=== PATIENT | female | born 1940 | race Caucasian/White ===

== ENCOUNTER 2019-08-20 05:03 | Emergency (ER) | payer MEDICARE, OTHER ==
[~2019-08-20] VITALS: Ht 160 cm; Wt 90.9 kg
[~2019-08-20 05:03] MED LIST: ALLO100T16; AMIT50TA14; CITA20TA; DONE10TA44; FURO40TA4; IBUP-1573; IBUP-1984 PO; LEVO112T5; OMEP-84; ROPI2TAB5; TRIA15CR
[2019-08-20 05:06] VITALS: BP 132/77
--- NOTE | 2019-08-20 05:37 | NUR ---
PT AMBULATED TO BATHROOM WITH OWN CANE WITH NO ASSISTANCE. NOW IN ROOM STANDING IN ROOM LOOKING OUT
[2019-08-20] MEDS ORDERED: morphine 4 MG/ML inj SYRINge IM ONE (05:45)
[2019-08-20] MEDS ORDERED: ondansetron 4mg rapidly disintigrating tab PO ONE (05:45)
--- NOTE | 2019-08-20 05:57 | NUR ---
DURING ADMINISTRATION OF MORPHINE, PT REQUESTED OTHER MEDICATIONS. PT STATED "I COULD NEVER BE A DRUGGIE - EXCEPT FOR MORPHINE". PT STATED SHE WOULD BE BACK ALTER WHEN HER PAIN CAME BACK.
[2019-08-20] MEDS ORDERED: POTA20TA19 PO (08:12)
[2019-08-20] MEDS ORDERED: DULO-31 PO (08:12)
[2019-08-20] MEDS ORDERED: ROPI4TAB6 PO (08:17)
[2019-08-20] MEDS ORDERED: TRAZ-219 PO (08:17)
[2019-08-20] MEDS ORDERED: ALLO100T PO (08:17)
[2019-08-20] MEDS ORDERED: GABA600T13 PO (08:17)
[2019-08-20] MEDS ORDERED: OXYC-658 PO ×2 (08:17→14:08)
== END 2019-08-20 06:10 | disposition home or self-care (01) ==
LOC: ER 05:04
DX: M54.5 Low back pain (principal); G89.29 Other chronic pain; F32.9 Major depressive disorder, single episode, unspecified; Z86.73 Personal history of transient ischemic attack (TIA), and cerebral infarction without residual deficits; Z87.442 Personal history of urinary calculi; Z90.49 Acquired absence of other specified parts of digestive tract; Z98.890 Other specified postprocedural states; Z88.8 Allergy status to other drugs, medicaments and biological substances; Z88.0 Allergy status to penicillin; Z79.899 Other long term (current) drug therapy
CPT/HCPCS: 96372; 99283; J2270

== ENCOUNTER 2019-08-20 07:24 | Emergency (ER) | payer MEDICARE, OTHER ==
[~2019-08-20] VITALS: Ht 162.6 cm; Wt 91.7 kg
[2019-08-20 07:26] VITALS: BP 166/95
--- NOTE | 2019-08-20 07:46 | NUR ---
PT IS FROM [facility] AND HER CAREGIVER DID NOT PACK HER MEDICATIONS, ROBINOL, GABAPENTIN, TRAZADONE, PT ROAD GREYHOUND AND TICKET MAY NOT BE VALID FOR RETURN UNTIL WEDNESDAY, DIGNA BLACKMON PT CAREGIVER [phone] LEFT MESSAGE FOR RETURN CALL TO DETERMINE PT MEDICATIONS AND DOSES, PT STATES USES [facility] IN [place] BUT PHARMACY HOURS ARE 10-6. PT ALSO HAS SON SID IN THIS AREA THAT SHE WILL BE CALLING TO HAVE HIM COME GET HER WHEN ED VISIT IS COMPLETE.
[2019-08-20] MEDS ORDERED: POTA20TA19 PO (08:12)
[2019-08-20] MEDS ORDERED: DULO-31 PO (08:12)
[2019-08-20] MEDS ORDERED: ROPI4TAB6 PO (08:17)
[2019-08-20] MEDS ORDERED: ALLO100T PO (08:17)
[2019-08-20] MEDS ORDERED: TRAZ-219 PO (08:17)
[2019-08-20] MEDS ORDERED: GABA600T13 PO (08:17)
[2019-08-20] MEDS ORDERED: OXYC-658 PO ×2 (08:17→14:08)
== END 2019-08-20 09:27 | disposition home or self-care (01) ==
LOC: ER 07:25
DX: G25.81 Restless legs syndrome (principal); G89.29 Other chronic pain; F32.9 Major depressive disorder, single episode, unspecified; Z76.0 Encounter for issue of repeat prescription; Z87.442 Personal history of urinary calculi; Z86.73 Personal history of transient ischemic attack (TIA), and cerebral infarction without residual deficits; Z90.49 Acquired absence of other specified parts of digestive tract; Z98.890 Other specified postprocedural states; Z88.1 Allergy status to other antibiotic agents; Z88.0 Allergy status to penicillin; Z88.8 Allergy status to other drugs, medicaments and biological substances; Z79.899 Other long term (current) drug therapy
CPT/HCPCS: 99283

== ENCOUNTER 2019-08-20 13:51 | Emergency (ER) | payer OTHER ==
[~2019-08-20] VITALS: Ht 162.6 cm; Wt 109.1 kg
[~2019-08-20 13:51] MED LIST changes: +ALLO100T PO; +DULO-31 PO; +GABA600T13 PO; +OXYC-658 PO; +POTA20TA19 PO; +ROPI4TAB6 PO; +TRAZ-219 PO
[2019-08-20 13:57] VITALS: BP 174/66
[2019-08-20] MEDS ORDERED: oxyCODONE IR 5mg (immed. release) tablet PO ONE (14:00)
[2019-08-20] MEDS ORDERED: OXYC-658 PO (14:08)
[2019-08-20] MEDS ORDERED: naproxen 500mg tablet PO ONE (14:30)
--- NOTE | 2019-08-20 14:40 | NUR ---
Attempted to medicate Pt as ordered. Pt slapped med cup away and walked out of fasttrack area.
== END 2019-08-20 14:47 | disposition home or self-care (01) ==
LOC: ER 13:52
DX: G89.29 Other chronic pain (principal); F32.9 Major depressive disorder, single episode, unspecified; Z86.73 Personal history of transient ischemic attack (TIA), and cerebral infarction without residual deficits; Z87.442 Personal history of urinary calculi; Z90.49 Acquired absence of other specified parts of digestive tract; Z98.890 Other specified postprocedural states; Z88.8 Allergy status to other drugs, medicaments and biological substances; Z88.0 Allergy status to penicillin; Z79.899 Other long term (current) drug therapy
CPT/HCPCS: 99283

== ENCOUNTER 2021-06-17 23:25 | Emergency (ER) | payer MEDICARE ==
[~2021-06-17] VITALS: Ht 165.1 cm; Wt 90.9 kg
[~2021-06-17 23:25] MED LIST changes: -ALLO100T PO; -AMIT50TA14; +ASPI-1265 PO; -CITA20TA; -DONE10TA44; -FURO40TA4; +FURO40TA4 PO; -IBUP-1573; -LEVO112T5; +MECL-159 PO; +ROPI1TAB6 PO; -ROPI2TAB5; -ROPI4TAB6 PO; +SYN0.088T PO; -TRAZ-219 PO; -TRIA15CR
[2021-06-18] MEDS ORDERED: acetaminophen 325mg tablet PO ONE (00:15)
[2021-06-18] MEDS ORDERED: normal saline 1000ML IV soln IVB ONE (00:35)
[2021-06-18 01:10] LABS: BASOPHILS % (AUTO) 0.4 % (0-1); EOSINOPHILS # (AUTO) 0.1 X10'3 (0-0.9); EOSINOPHILS % (AUTO) 1.8 % (0-6); HEMATOCRIT 33.2 % (35.0-45.0); HEMOGLOBIN 11.2 g/dl (12.0-16.0); LYMPHOCYTES # (AUTO) 0.3 X10'3 (1.1-4.8); LYMPHOCYTES % (AUTO) 4.9 % (21-51); MEAN CORPUSCULAR HEMOGLOBIN 31.7 PG (27.0-31.0); MEAN CORPUSCULAR HGB CONC 33.6 g/dL (33.0-36.5); MEAN CORPUSCULAR VOLUME 94.2 FL (78-98); MEAN PLATELET VOLUME 7.5 FL (7.4-10.4); MONOCYTES # (AUTO) 0.3 X10'3 (0-0.9); NEUTROPHILS # (AUTO) 6.1 X10'3 (1.8-7.7); NEUTROPHILS % (AUTO) 87.9 % (42-75); PLATELET COUNT 176 X10'3 (140-440); RED BLOOD COUNT 3.53 X10'6 (4.20-5.60); RED CELL DISTRIBUTION WIDTH 15.4 % (11.5-14.5)
[2021-06-18 01:21] LABS: PARTIAL THROMBOPLASTIN TIME 23 SECONDS (22-32)
[2021-06-18 01:23] LABS: ALANINE AMINOTRANSFERASE 95 U/L (12-78); ALBUMIN 3.4 G/DL (3.4-5.0); ALBUMIN/GLOBULIN RATIO 0.8 (1.1-1.5); ALKALINE PHOSPHATASE 161 IU/L (46-116); ANION GAP 12 (8-16); ASPARTATE AMINO TRANSFERASE 115 U/L (10-37); BILIRUBIN,TOTAL 0.4 MG/DL (0.1-1.0); BLOOD UREA NITROGEN 28 MG/DL (7-18); BUN/CREATININE RATIO 20.9 (6.6-38.0); CALCIUM 8.8 MG/DL (8.5-10.1); CHLORIDE 103 MMOL/L (99-107); CREATININE 1.34 MG/DL (0.40-0.90); GLUCOSE 120 MG/DL (70-104); SODIUM 142 MMOL/L (135-145); TOTAL CARBON DIOXIDE 26.9 MMOL/L (24-32); TOTAL PROTEIN 7.5 G/DL (6.4-8.2); eGFR 38 ML/MIN
[2021-06-18 01:27] LABS: MAGNESIUM 1.4 MG/DL (1.5-2.4); TROPONIN I < 0.04 NG/ML (0.0-0.05)
[2021-06-18 02:09] LABS: C-REACTIVE PROTEIN 0.96 MG/DL (0.0-0.5)
[2021-06-18] MEDS ORDERED: dexamethasone 4mg tablet PO ONE (02:55)
[2021-06-18] MEDS ORDERED: diphenhydrAMINE 25mg capsule PO PRN (04:00)
[2021-06-18] MEDS ORDERED: acetaminophen 650mg rectal suppository RC PRN (04:00)
[2021-06-18] MEDS ORDERED: ondansetron/PF 4mg/2ml inj IV PRN (04:00)
[2021-06-18] MEDS ORDERED: mag hydrox/Alum hydrox/simeth 30ml oral suspension PO PRN (04:00)
[2021-06-18] MEDS ORDERED: magnesium hydroxide 30ml (MOM) UD suspension PO PRN (04:00)
[2021-06-18] MEDS ORDERED: magnesium 4gm in 100ml NS 100 ML IV PRN (04:00)
[2021-06-18] MEDS ORDERED: ipratropium/albuterol 3ml nebule NEB PRN (04:00)
[2021-06-18] MEDS ORDERED: bisacodyl 10mg suppository rectal RC PRN (04:00)
[2021-06-18] MEDS ORDERED: morphine 2 MG/ML inj. syringe IV PRN ×2 (04:00)
[2021-06-18] MEDS ORDERED: diphenhydrAMINE 50 mg/ml inj IV PRN (04:00)
[2021-06-18] MEDS ORDERED: magnesium 2GM in 50ml NS 50 ML IV PRN (04:00)
[2021-06-18] MEDS ORDERED: acetaminophen 325mg tablet PO PRN ×2 (04:00)
[2021-06-18] MEDS ORDERED: ondansetron 4mg rapidly disintigrating tab PO PRN (04:00)
[2021-06-18] MEDS ORDERED: HYDROcodone/acetaminophen 5mg/325mg tablet PO PRN (04:00)
[2021-06-18 04:33] LABS: PHOSPHORUS 2.8 MG/DL (2.3-4.5)
[2021-06-18] MEDS: normal saline 1000ml 1,000 ML IV SCH ×2 (04:34→14:15)
[2021-06-18] MEDS: dexamethasone sod phosphate 4mg/ml inj. IV SCH ×2 (04:34→21:44)
--- NOTE | 2021-06-18 05:26 | NUR ---
attempted to ambulate pt to bedside comode. pt had exertional dyspnea. hypoxic at 87% on RA when placed on monitor. sats returned to mid 90's with rest. notified
[2021-06-18] MEDS ORDERED: dexamethasone inj 6 MG in normal saline 50ml IV soln 50 ML IV SCH (07:00)
[2021-06-18] MEDS: docusate sod 100mg capsule PO SCH ×2 (08:00→21:43)
[2021-06-18] MEDS: enoxaparin 40mg/0.4ml syringe SUBCUT SCH ×2 (08:20→21:43)
[2021-06-18] MEDS ORDERED: ALBUTEROL INHALER 1 PUFF/90 MCG INHALER IH PRN (14:40)
[2021-06-18] MEDS ORDERED: FURO80TA3 PO (15:25)
[2021-06-18] MEDS ORDERED: NORT25CA PO (15:25)
[2021-06-18] MEDS ORDERED: ALLO100T PO (15:25)
[2021-06-18] MEDS ORDERED: NITR0.4T48 SL (15:25)
[2021-06-18] MEDS ORDERED: IBUP-1985 PO (15:25)
[2021-06-18] MEDS ORDERED: LEVO88TA70 PO (15:25)
[2021-06-18] MEDS ORDERED: GABA600T13 PO (15:25)
[2021-06-18] MEDS ORDERED: DULO60CA65 PO (15:25)
[2021-06-18] MEDS ORDERED: ROPI2TAB7 PO (15:25)
[2021-06-18] MEDS ORDERED: OMEP-50 PO (15:25)
--- NOTE | 2021-06-18 17:05 | NUR ---
NEW ORDER FROM DR. MCNEILL TO STRAIGHT CATH PT FOR URINE SAMPLE. PT TOLERATED STRAIGHT CATH. STRAIGHT CATH YEILDED 600 MLS. URINE SAMPLE TO LAB.
[2021-06-18 17:19] LABS: CLARITY,URINE CLEAR (Clear); COLOR,URINE YELLOW (Yellow); GLUCOSE, URINE NEGATIVE (Neg); KETONES,URINE NEGATIVE (Neg); LEUKOCYTE ESTERASE ,URINE NEGATIVE (Neg); NITRITES, URINE NEGATIVE (Neg); OCCULT BLOOD,URINE NEGATIVE (Neg); PH,URINE 6.5 (4.8-8.0); PROTEIN,URINE NEGATIVE (Neg); UROBILINOGEN,URINE 0.2 E.U/dL (0.2-1.0)
[2021-06-18 17:23] LABS: UA COLLECTION TYPE NON-SPECIFIED
[2021-06-18] MEDS ORDERED: temazepam 15mg capsule PO PRN (21:00)
[2021-06-19] MEDS: dexamethasone sod phosphate 4mg/ml inj. IV SCH (07:53)
[2021-06-19] MEDS: enoxaparin 40mg/0.4ml syringe SUBCUT SCH (07:53)
[2021-06-19] MEDS: docusate sod 100mg capsule PO SCH (07:53)
[2021-06-19 08:11] LABS: BASOPHILS % (AUTO) 0.3 % (0-1); EOSINOPHILS % (AUTO) 0 % (0-6); HEMATOCRIT 33.3 % (35.0-45.0); LYMPHOCYTES % (AUTO) 17.5 % (21-51); MEAN CORPUSCULAR HEMOGLOBIN 31.6 PG (27.0-31.0); MEAN PLATELET VOLUME 8.8 FL (7.4-10.4); MONOCYTES # (AUTO) 0.3 X10'3 (0-0.9); MONOCYTES % (AUTO) 4.6 % (2-12); NEUTROPHILS # (AUTO) 4.5 X10'3 (1.8-7.7); NEUTROPHILS % (AUTO) 77.6 % (42-75); PLATELET COUNT 180 X10'3 (140-440); RED BLOOD COUNT 3.47 X10'6 (4.20-5.60); RED CELL DISTRIBUTION WIDTH 15.7 % (11.5-14.5); WHITE BLOOD COUNT 5.8 X10'3 (4.5-11.0)
[2021-06-19] MEDS ORDERED: DEC4T PO ×6 (08:43→16:50)
[2021-06-19] MEDS ORDERED: ALBU8.5H17 IH ×2 (08:43)
[2021-06-19] MEDS: normal saline 1000ml 1,000 ML IV SCH ×2 (10:00)
[2021-06-19 10:50] LABS: ALANINE AMINOTRANSFERASE 109 U/L (12-78); ALBUMIN 3.2 G/DL (3.4-5.0); ALBUMIN/GLOBULIN RATIO 0.8 (1.1-1.5); ALKALINE PHOSPHATASE 141 IU/L (46-116); ANION GAP 13 (8-16); ASPARTATE AMINO TRANSFERASE 106 U/L (10-37); BILIRUBIN,TOTAL 0.3 MG/DL (0.1-1.0); BLOOD UREA NITROGEN 20 MG/DL (7-18); CALCIUM 8.9 MG/DL (8.5-10.1); CHLORIDE 108 MMOL/L (99-107); CHOL/HDL RATIO 3.5 (0.00-4.99); CHOLESTEROL 186 MG/DL (0-200); CREATININE 0.91 MG/DL (0.40-0.90); GLUCOSE 151 MG/DL (70-104); HDL CHOLESTEROL 53 MG/DL (35-60); LDL CHOLESTEROL 108 MG/DL (50-100); MAGNESIUM 1.9 MG/DL (1.5-2.4); POTASSIUM 3.5 MMOL/L (3.5-5.1); SODIUM 145 MMOL/L (135-145); TOTAL CARBON DIOXIDE 23.9 MMOL/L (24-32); TRIGLYCERIDES 130 MG/DL (20-135); eGFR 59 ML/MIN
--- NOTE | 2021-06-19 11:53 | NUR ---
House supervisior speaking with patient per patient request regarding dispute of discharge.
[2021-06-19 12:01] VITALS: BP 156/136
--- NOTE | 2021-06-19 12:45 | NUR ---
Spoke with Kierra GONZALEZ regarding patient unable to recall son's phone number and phone number in chart is a wrong number. CM to follow up with calling family to pick patient up.
--- NOTE | 2021-06-19 12:52 | NUR ---
Philippe parry [phone]
[2021-06-20] MEDS ORDERED: dexamethasone sod phosphate 4mg/ml inj. IV SCH (08:00)
[2021-06-20] MEDS ORDERED: enoxaparin 40mg/0.4ml syringe SUBCUT SCH (08:00)
== END 2021-06-19 13:56 | disposition home or self-care (01) ==
LOC: ER 23:25 → UNDOADMIN 06-18 03:57 → ED HOLD 06-18 03:57 → PACU 06-18 03:57
DX: A41.89 Other specified sepsis (principal); U07.1 COVID-19; J12.82 Pneumonia due to coronavirus disease 2019; I31.3 Pericardial effusion (noninflammatory); I50.32 Chronic diastolic (congestive) heart failure; N17.9 Acute kidney failure, unspecified; R09.02 Hypoxemia; D64.9 Anemia, unspecified; E03.9 Hypothyroidism, unspecified; E66.9 Obesity, unspecified; E83.42 Hypomagnesemia; N18.9 Chronic kidney disease, unspecified
CPT/HCPCS: 36415; 71045; 71250; 80053; 80061; 81003; 83605; 83735; 83880; 84100; 84145; 84484; 85025; 85610; 85730; 86140; 87040; 87635; 94640; 96372; 96374; 96375; 99285; C9803; J1100; J2270; J7030; 96360; 96361; G0378; J1650

== ENCOUNTER 2021-06-23 14:25 | Inpatient (IN) | payer MEDICARE ==
[~2021-06-23] VITALS: Ht 165.1 cm; Wt 99.2 kg
[~2021-06-23 14:25] MED LIST changes: +ALBU8.5H17 IH; +ALLO100T PO; -ALLO100T16; +DEC4T PO; -DULO-31 PO; +DULO60CA65 PO; -FURO40TA4 PO; +FURO80TA3 PO; -IBUP-1984 PO; +IBUP-1985 PO; +LEVO88TA70 PO; +NITR0.4T48 SL; +NORT25CA PO; +OMEP-50 PO; -OMEP-84; -OXYC-658 PO; -POTA20TA19 PO; -ROPI1TAB6 PO; +ROPI2TAB7 PO; -SYN0.088T PO; +etomidate 2mg/ml inj. ONE; +rocuronium 10mg/ml inj IV ONE; +sod chloride 0.9% 10ml flush syringe IV ONE
[2021-06-23 14:55] LABS: ABG BASE EXCESS 0.8 mmol/L (-2.0-2.0); ABG HCO3 23.6 mmol/L (22.0-26.0); ABG OXYGEN SATURATION 92.3 % (94-97); ABG PCO2 (T) 32.1 mmHg (32.0-45.0); ABG PO2 (T) 62.2 mmHg (75.0-100.0); ALLEN'S TEST POSITIVE; FCOHb 0.4 % (0.0-3.9); FLOW 15 L/min; FMetHb 0.1 % (0.0-1.5); FO2Hb 91.8 % (94-97); TOTAL HEMOGLOBIN 13.2 G/dl (12.0-16.0)
[2021-06-23] MEDS ORDERED: DEXAMETHASONE 6 MG TABLET PO ONE (15:00)
[2021-06-23 15:10] LABS: BASOPHILS % (AUTO) 0.2 % (0-1); EOSINOPHILS % (AUTO) 0 % (0-6); HEMATOCRIT 38.1 % (35.0-45.0); HEMOGLOBIN 12.6 g/dl (12.0-16.0); LYMPHOCYTES # (AUTO) 0.8 X10'3 (1.1-4.8); LYMPHOCYTES % (AUTO) 5.1 % (21-51); MEAN CORPUSCULAR HEMOGLOBIN 31.2 PG (27.0-31.0); MEAN CORPUSCULAR HGB CONC 33.2 g/dL (33.0-36.5); MEAN CORPUSCULAR VOLUME 93.9 FL (78-98); MONOCYTES # (AUTO) 0.6 X10'3 (0-0.9); MONOCYTES % (AUTO) 4.1 % (2-12); NEUTROPHILS # (AUTO) 13.8 X10'3 (1.8-7.7); NEUTROPHILS % (AUTO) 90.6 % (42-75); PLATELET COUNT 216 X10'3 (140-440); RED BLOOD COUNT 4.06 X10'6 (4.20-5.60); WHITE BLOOD COUNT 15.2 X10'3 (4.5-11.0)
[2021-06-23 15:19] LABS: D-DIMER 0.43 MG/L FEU (0-0.50)
[2021-06-23 15:22] LABS: ALANINE AMINOTRANSFERASE 76 U/L (12-78); ALBUMIN 2.4 G/DL (3.4-5.0); ALBUMIN/GLOBULIN RATIO 0.5 (1.1-1.5); ALKALINE PHOSPHATASE 132 IU/L (46-116); ANION GAP 12 (8-16); ASPARTATE AMINO TRANSFERASE 53 U/L (10-37); BILIRUBIN,TOTAL 0.3 MG/DL (0.1-1.0); BLOOD UREA NITROGEN 26 MG/DL (7-18); BUN/CREATININE RATIO 22.2 (6.6-38.0); C-REACTIVE PROTEIN 3.52 MG/DL (0.0-0.5); CALCIUM 8.6 MG/DL (8.5-10.1); CHLORIDE 100 MMOL/L (99-107); CREATININE 1.17 MG/DL (0.40-0.90); GLUCOSE 111 MG/DL (70-104); POTASSIUM 3.7 MMOL/L (3.5-5.1); SODIUM 138 MMOL/L (135-145); TOTAL CARBON DIOXIDE 25.9 MMOL/L (24-32); TOTAL PROTEIN 7.6 G/DL (6.4-8.2); eGFR 44 ML/MIN
[2021-06-23] MEDS ORDERED: REMDESIVIR INJ 200 MG in normal saline 100ml IV soln 100 ML IV ONE (16:00)
[2021-06-23] MEDS ORDERED: magnesium 4gm in 100ml NS 100 ML IV PRN (17:15)
[2021-06-23] MEDS ORDERED: potassium Cl 20 mEq SR tablet PO PRN ×2 (17:15)
[2021-06-23] MEDS ORDERED: magnesium Cl slow-release 64mg tablet PO PRN (17:15)
[2021-06-23] MEDS ORDERED: potassium Cl 40MEQ/1/2NS 520ml 520 ML IV PRN ×2 (17:15)
[2021-06-23] MEDS: normal saline 1000ml 1,000 ML IV SCH (17:15)
[2021-06-23] MEDS ORDERED: magnesium 2GM in 50ml NS 50 ML IV PRN (17:15)
[2021-06-23] MEDS ORDERED: HYDROcodone/acetaminophen 5mg/325mg tablet PO PRN (17:15)
[2021-06-23] MEDS ORDERED: magnesium hydroxide 30ml (MOM) UD suspension PO PRN (17:15)
[2021-06-23] MEDS ORDERED: bisacodyl 10mg suppository rectal RC PRN (17:15)
[2021-06-23] MEDS ORDERED: HYDROcodone/acetaminophen 10/325mg tab PO PRN (17:15)
[2021-06-23] MEDS ORDERED: ondansetron/PF 4mg/2ml inj IV PRN (17:15)
[2021-06-23] MEDS ORDERED: acetaminophen 325mg tablet PO PRN ×2 (17:15)
[2021-06-23] MEDS ORDERED: mag hydrox/Alum hydrox/simeth 30ml oral suspension PO PRN (17:15)
[2021-06-23 17:38] LABS: PARTIAL THROMBOPLASTIN TIME 24 SECONDS (22-32)
[2021-06-23] MEDS ORDERED: normal saline 1000ML IV soln IVB ONE (18:05)
--- NOTE | 2021-06-23 18:06 | NUR ---
SPOKE WITH SON SHAUN [phone]
[2021-06-23] MEDS ORDERED: ALBU8.5H17 IH (18:40)
[2021-06-23] MEDS ORDERED: DEXA6TAB6 PO (18:40)
--- NOTE | 2021-06-23 19:49 | NUR ---
o2sats 96%. Dr. Snider at bedside to see Pt. Pt lying prone.
[2021-06-23] MEDS ORDERED: duloxetine 30mg CAPSULE.DR PO SCH (20:00)
[2021-06-23] MEDS: K and/or MAG REPLACEMENT MC SCH (20:00)
[2021-06-23] MEDS ORDERED: temazepam 15mg capsule PO PRN (21:00)
[2021-06-23] MEDS: gabapentin 300mg capsule PO SCH (21:26)
[2021-06-23] MEDS: duloxetine 30mg CAPSULE.DR PO SCH (21:26)
[2021-06-23] MEDS: enoxaparin 40mg/0.4ml syringe SQ SCH (21:27)
[2021-06-23] MEDS: ROPINIRole 1mg tablet PO SCH (21:27)
[2021-06-23] MEDS: nortriptyline 25mg capsule PO SCH (21:27)
[2021-06-23] MEDS: allopurinol 100mg tablet PO SCH (21:27)
[2021-06-23] MEDS: dexamethasone inj 6 MG in normal saline 50ml IV soln 50 ML IV SCH (21:28)
[2021-06-24] MEDS: normal saline 1000ml 1,000 ML IV SCH ×3 (03:29→23:31)
[2021-06-24 04:04] LABS: BASOPHILS % (AUTO) 0.1 % (0-1); EOSINOPHILS % (AUTO) 0 % (0-6); HEMATOCRIT 34.9 % (35.0-45.0); HEMOGLOBIN 11.7 g/dl (12.0-16.0); LYMPHOCYTES # (AUTO) 0.9 X10'3 (1.1-4.8); MEAN CORPUSCULAR HEMOGLOBIN 30.9 PG (27.0-31.0); MEAN CORPUSCULAR HGB CONC 33.4 g/dL (33.0-36.5); MEAN CORPUSCULAR VOLUME 92.6 FL (78-98); MONOCYTES # (AUTO) 0.4 X10'3 (0-0.9); MONOCYTES % (AUTO) 3.1 % (2-12); NEUTROPHILS % (AUTO) 88.8 % (42-75); PLATELET COUNT 181 X10'3 (140-440); RED BLOOD COUNT 3.77 X10'6 (4.20-5.60); RED CELL DISTRIBUTION WIDTH 15.2 % (11.5-14.5); WHITE BLOOD COUNT 11.3 X10'3 (4.5-11.0)
[2021-06-24 04:14] LABS: PARTIAL THROMBOPLASTIN TIME 27 SECONDS (22-32)
[2021-06-24 04:16] LABS: ALANINE AMINOTRANSFERASE 58 U/L (12-78); ALBUMIN 2.6 G/DL (3.4-5.0); ALBUMIN/GLOBULIN RATIO 0.7 (1.1-1.5); ALKALINE PHOSPHATASE 107 IU/L (46-116); ANION GAP 10 (8-16); ASPARTATE AMINO TRANSFERASE 48 U/L (10-37); BILIRUBIN,TOTAL 0.4 MG/DL (0.1-1.0); BLOOD UREA NITROGEN 27 MG/DL (7-18); CALCIUM 7.8 MG/DL (8.5-10.1); CHLORIDE 103 MMOL/L (99-107); CREATININE 1.08 MG/DL (0.40-0.90); GLUCOSE 160 MG/DL (70-104); PHOSPHORUS 3.6 MG/DL (2.3-4.5); SODIUM 138 MMOL/L (135-145); TOTAL CARBON DIOXIDE 24.7 MMOL/L (24-32); TOTAL PROTEIN 6.6 G/DL (6.4-8.2); eGFR 48 ML/MIN
--- NOTE | 2021-06-24 06:35 | NUR ---
Patient in bed stating she can not breath, pat found without NC and Non rebreather in place, lips purple in color. SPO2 79%, RT paged for [place] NC, NC and non rebreather replaced, SPO2 88%. Patient drowsy, oriented X4, bilateral breath sounds clear and equal, diminished on bases, intermittent cough per patient, IV to RFA WNL, no redness nor infiltration noted to site. Pat repositioned for comfort. Call light within reach, bed at lowest position. Addendum: 06/24/21 at 1048 by CERAZO PER RN JENI, AND RT STATES SPO2 88% OKAY FOR COVID POSITIVE PATIENTS.
[2021-06-24] MEDS: K and/or MAG REPLACEMENT MC SCH ×2 (07:29→20:00)
[2021-06-24] MEDS ORDERED: pantoprazole 40mg Tablet.DR PO SCH (07:30)
[2021-06-24] MEDS ORDERED: DEXAMETHASONE 6 MG TABLET PO SCH (08:00)
[2021-06-24] MEDS: allopurinol 100mg tablet PO SCH ×2 (08:31→20:37)
[2021-06-24] MEDS: gabapentin 300mg capsule PO SCH ×2 (08:32→20:37)
[2021-06-24] MEDS: duloxetine 30mg CAPSULE.DR PO SCH ×2 (08:32→20:40)
[2021-06-24] MEDS: ROPINIRole 1mg tablet PO SCH ×2 (08:32→20:40)
[2021-06-24] MEDS: aspirin 81mg tab.chew PO SCH (08:32)
[2021-06-24] MEDS: enoxaparin 40mg/0.4ml syringe SQ SCH ×2 (08:32→20:36)
[2021-06-24] MEDS: levoTHYROXINE 88mcg tablet PO SCH (08:32)
[2021-06-24] MEDS: dexamethasone inj 6 MG in normal saline 50ml IV soln 50 ML IV SCH ×2 (08:33→20:29)
[2021-06-24] MEDS: REMDESIVIR INJ 100 MG in normal saline 100ml IV soln 100 ML IV SCH (08:33)
[2021-06-24] MEDS: furosemide 40mg tablet PO SCH (08:33)
[2021-06-24] MEDS: ALBUTEROL INHALER 1 PUFF/90 MCG INHALER IH PRN ×3 (08:48→17:45)
[2021-06-24 08:50] LABS: C-REACTIVE PROTEIN 5.37 MG/DL (0.0-0.5); LACTATE DEHYDROGENASE 403 U/L (81-234)
--- NOTE | 2021-06-24 09:03 | NUR ---
Hygiene provided at this time, pure wick repositioned, pat attempt to reposition to pron position but states she can only go onto left side as much as possible.
--- NOTE | 2021-06-24 09:12 | NUR ---
Cindy unable to tolerate prone position, SPO2 84%, RT at bedside, cindy HOB elevated, SPO2 88%. Addendum: 06/24/21 at 1047 by ANASTASIA PER RT MICHAEL + CINDY CONNOLLY SPO2 88-90%.
--- NOTE | 2021-06-24 09:16 | NUR ---
DR LIND AWARE PAT UNABLE TO TOLERATE PRONE POSITION, PER MD PAT TO BE ENCOURAGED TO REMAIN IN PRONE POSITION TO PREVENT VENTILATOR USE.
[2021-06-24 09:21] LABS: D-DIMER 0.37 MG/L FEU (0-0.50)
[2021-06-24] MEDS: morphine 2 MG/ML inj. syringe IV PRN (11:59)
--- NOTE | 2021-06-24 12:20 | NUR ---
LINEN CHANGE AND HYGIENE PROVIDED FOR INCONTINENT VOID, SUCTION CANISTER CHANGED WITH 1100 ML CLEAR YELLOW URINE EMPTIED, PATIENT PLACED IN PRONE POSITION AT THIS TIME, ASSISTED WITH COMFORT, TOLERATING WELL, CALL LIGHT WITHIN REACH, SPUTUM YELLOW, SPO2 88% ON 30L.
--- NOTE | 2021-06-24 13:27 | NUR ---
Break JÚNIOR Cifuentes states patient took off non rebreather, SPO2 71%, patient states she is having "really bad heart burn" Pat requesting ice chips, pat repositioned to supine with HOB elevated, O2 in place @ 30L via NC and non rebreather. SPO2 87%, HR 86, BP 138/87, tolerated ice chips well, side rails up, call light within reach.
--- NOTE | 2021-06-24 14:06 | NUR ---
Spoke with Dr Vasquez regarding pat SPO2 85-80% on 30L nc/non rebreather. Per MD will admin albuterol inhaler (see EMAR), MD aware patient state she does not want to be intubated if she stops breathing, recommended MD to speak with pat regarding code status. RT paged and updated, will give albuterol inhaler and continue to monitor.
--- NOTE | 2021-06-24 15:35 | NUR ---
Dr Vasquez in to assess patient at this time.
--- NOTE | 2021-06-24 17:59 | NUR ---
PAGE SENT TO DR KISER AT THIS TIME FOR SPO2 85%, INHALER ADMINISTERED (SEE EMAR).
--- NOTE | 2021-06-24 19:09 | NUR ---
Dr. Reyes was notified, received order for soft wrist restraints to assist pt as a reminder to not pull off her oxygen. Pt in agreement. Dr. Reyes was not able to provide for me an oxygenation plan or any plan, as to what to expect or anticipate for this patient, but to 'play it by ear and call me for changes."
--- NOTE | 2021-06-24 19:19 | NUR ---
Papito the son is coming up. His mother is critical. shelby Cha RN aware.
--- NOTE | 2021-06-24 19:54 | NUR ---
Pt was placed on BiPAP after o2 was not able to increase with 15L salter and 15L non-rebreather. Pt sats at that time with the salter and non-rebreather was in the 70's and would not increase. BiPAP settings are 14/6, 14, and 100% FiO2. Pt appears comfortable at this time on those settings. Pt's sats are currently 85% but pt does not appear to be in any distress.
--- NOTE | 2021-06-24 20:06 | NUR ---
pt son arrived to visit. donned appropriate ppe for covid isolation. son now at bedside
[2021-06-24] MEDS: pantoprazole 40mg Tablet.DR PO SCH (20:37)
[2021-06-24] MEDS: nortriptyline 25mg capsule PO SCH (20:38)
[2021-06-24] MEDS: mag hydrox/Alum hydrox/simeth 30ml oral suspension PO SCH (21:00)
--- NOTE | 2021-06-24 21:00 | NUR ---
PT STILL IN NON-BEHAVIORAL RESTRAINTS. PT STILL AGITATED WITH OXYGEN TREATMENT AND ATTEMPTING TO PULL AT LINES. CMS INTACT, CAP REFILL <3 SECONDS.
--- NOTE | 2021-06-24 21:30 | NUR ---
PT ASKED "WHAT HAPPENS IF I STOP BREATHING ALL TOGETHER" INFORMED PT THAT CPR AND FULL LIFE SAVING MEASURES INCLUDING INTUBATION WOULD BE TAKEN BASED ON FULL CODE STATUS. PT AND SON AGREED THAT IF INTUBATION WAS NECESSARY FOR LIFE, PT WOULD AGREE TO INTUBATION. PT STATED "I DONT WANT TO YET".
[2021-06-24 21:37] LABS: ABG PCO2 (T) 37.4 mmHg (32.0-45.0); ALLEN'S TEST POSITIVE; FCOHb 0.2 % (0.0-3.9); FMetHb 0.3 % (0.0-1.5); FO2Hb 83.6 % (94-97); PATIENT TEMPERATURE 37.3; RESPIRATORY RATE 14 b/min; TOTAL HEMOGLOBIN 12.5 G/dl (12.0-16.0)
--- NOTE | 2021-06-24 21:37 | NUR ---
son left bedside for the night
[2021-06-24] MEDS ORDERED: LORazepam 2 mg/ml vial IV PRN ×4 (22:20→23:05)
--- NOTE | 2021-06-24 22:32 | NUR ---
pt refusing bipap. states "i dont like the air blowing on my face". placed on HFNC and NRB at 15L each to give pt a break, desatted to SPO2 77%. called dr osullivan for prn sierravan order for agitation and for pt to tolerate bipap better. administered ativan and placed pt back on bipap at last settings. SPO2 now 92%.
--- NOTE | 2021-06-24 23:00 | NUR ---
PT STILL IN NON-BEHAVIORAL RESTRAINTS. PT STILL AGITATED WITH OXYGEN TREATMENT AND ATTEMPTING TO PULL AT LINES. CMS INTACT, CAP REFILL <3 SECONDS.
[2021-06-25 02:11] LABS: BASOPHILS % (AUTO) 0.2 % (0-1); EOSINOPHILS % (AUTO) 0 % (0-6); HEMATOCRIT 32.6 % (35.0-45.0); HEMOGLOBIN 10.9 g/dl (12.0-16.0); LYMPHOCYTES # (AUTO) 0.8 X10'3 (1.1-4.8); LYMPHOCYTES % (AUTO) 8.4 % (21-51); MEAN CORPUSCULAR HEMOGLOBIN 31.2 PG (27.0-31.0); MEAN CORPUSCULAR HGB CONC 33.5 g/dL (33.0-36.5); MEAN PLATELET VOLUME 7.8 FL (7.4-10.4); MONOCYTES # (AUTO) 0.4 X10'3 (0-0.9); MONOCYTES % (AUTO) 4.6 % (2-12); NEUTROPHILS # (AUTO) 7.9 X10'3 (1.8-7.7); NEUTROPHILS % (AUTO) 86.8 % (42-75); PLATELET COUNT 167 X10'3 (140-440); RED CELL DISTRIBUTION WIDTH 15.2 % (11.5-14.5); WHITE BLOOD COUNT 9.1 X10'3 (4.5-11.0)
[2021-06-25 02:19] LABS: D-DIMER 0.58 MG/L FEU (0-0.50); PARTIAL THROMBOPLASTIN TIME 27 SECONDS (22-32)
[2021-06-25 02:23] LABS: ALANINE AMINOTRANSFERASE 54 U/L (12-78); ALBUMIN 2.6 G/DL (3.4-5.0); ALBUMIN/GLOBULIN RATIO 0.7 (1.1-1.5); ALKALINE PHOSPHATASE 113 IU/L (46-116); ANION GAP 11 (8-16); ASPARTATE AMINO TRANSFERASE 54 U/L (10-37); BILIRUBIN,TOTAL 0.3 MG/DL (0.1-1.0); BLOOD UREA NITROGEN 31 MG/DL (7-18); BUN/CREATININE RATIO 25.6 (6.6-38.0); C-REACTIVE PROTEIN 5.97 MG/DL (0.0-0.5); CALCIUM 7.2 MG/DL (8.5-10.1); CHLORIDE 108 MMOL/L (99-107); CREATININE 1.21 MG/DL (0.40-0.90); GLUCOSE 165 MG/DL (70-104); LACTATE DEHYDROGENASE 491 U/L (81-234); MAGNESIUM 1.9 MG/DL (1.5-2.4); PHOSPHORUS 3.8 MG/DL (2.3-4.5); POTASSIUM 3.6 MMOL/L (3.5-5.1); SODIUM 143 MMOL/L (135-145); TOTAL CARBON DIOXIDE 24.2 MMOL/L (24-32); TOTAL PROTEIN 6.3 G/DL (6.4-8.2); eGFR 42 ML/MIN
--- NOTE | 2021-06-25 03:26 | NUR ---
Pt is on BIPAP oxygenating well at this time. However pt does appear to be uncomfortable and confused at this time. RN is aware.
--- NOTE | 2021-06-25 04:21 | NUR ---
PT HAS INCREASED MENTATION AND SLID DOWN IN THE BED AND WAS ATTEMPTING TO PULL OFF BIPAP WITH RESTRAINTS ON WITH PUREWICK DISPLACED. SLID PT UP IN BED, FULL BED CHANGE, AND REPLACED PUREWICK. GAVE PT ATIVAN FOR AGITATION. PT FOLLOWS SIMPLE COMMANDS HOWEVER IS NOT ANSWERING VERBAL QUESTIONS APPROPRIATLY. PERRL, SPO2 92, RR 23. CALLED DR WISEMAN REGARDING CHANGE IN MENTATION AND D-DIMER TRENDING UP. VERBAL ORDER FROM TO GET REPEAT CXR.
--- NOTE | 2021-06-25 05:02 | NUR ---
Pt more uptunded. PER 2mm and sluggish. Non arousable to sternal rub. Increased FIO2 to 100%, EPAP increased to 8 and Rate increased to 18, repositioned her to a more upright position and placed towel roll under shoulders. Repositioned mask as there was a leak. JÚNIOR Hills called hospitalist for flumazenil IVP. RT called to bedside.
[2021-06-25] MEDS ORDERED: flumazenil 0.1 mg/ml inj. IV ONE (05:05)
--- NOTE | 2021-06-25 05:14 | NUR ---
Pt talking now.
[2021-06-25] MEDS ORDERED: flumazenil 0.1 mg/ml inj. IV PRN (05:55)
--- NOTE | 2021-06-25 06:03 | NUR ---
pt obtunded, PER sluggish and 2mm spo2 77%, consulted dr lindo for repeat order for flumazenil. order obtained. medication administered. pt now talking.
--- NOTE | 2021-06-25 06:06 | NUR ---
spo2 now 87%
[2021-06-25] MEDS: mag hydrox/Alum hydrox/simeth 30ml oral suspension PO SCH ×4 (07:00→21:00)
--- NOTE | 2021-06-25 07:34 | NUR ---
attempted to remove restraints. patient not picking at lines while standing at bedside, but BIPAP removed by patient shortly after RN left room. BiPAP replaced and restraints applied.
[2021-06-25 07:52] LABS: ABG BASE EXCESS -4.5 mmol/L (-2.0-2.0); ABG HCO3 20.1 mmol/L (22.0-26.0); ABG OXYGEN SATURATION 89.9 % (94-97); ABG PCO2 (T) 35.5 mmHg (32.0-45.0); ABG PO2 (T) 64.6 mmHg (75.0-100.0); ALLEN'S TEST POSITIVE; FCOHb 0.3 % (0.0-3.9); FMetHb 0.3 % (0.0-1.5); FO2Hb 89.4 % (94-97); RESPIRATORY RATE 18 b/min; TIDAL VOLUME 364 mL; TOTAL HEMOGLOBIN 11.9 G/dl (12.0-16.0)
[2021-06-25] MEDS: levoTHYROXINE 88mcg tablet PO SCH (08:00)
[2021-06-25] MEDS: K and/or MAG REPLACEMENT MC SCH ×2 (08:00→20:00)
[2021-06-25] MEDS ORDERED: REMDESIVIR INJ 100 MG in normal saline 100ml IV soln 100 ML IV SCH (08:00)
[2021-06-25] MEDS: allopurinol 100mg tablet PO SCH ×2 (08:00→20:09)
[2021-06-25] MEDS: duloxetine 30mg CAPSULE.DR PO SCH ×2 (08:00→20:09)
--- NOTE | 2021-06-25 08:41 | NUR ---
Patient is restless and confused. Restraints in place. Deset to 79%. Patient repositioned and Sp02 improved to 88%. Unable to prone due to confusion and restraints. ABG results available. Dr. Kennedy at bedside, updated on pt condition.
[2021-06-25] MEDS: REMDESIVIR INJ 100 MG in normal saline 100ml IV soln 100 ML IV SCH (09:06)
[2021-06-25] MEDS: dexamethasone inj 6 MG in normal saline 50ml IV soln 50 ML IV SCH (09:06)
[2021-06-25] MEDS: pantoprazole 40mg Tablet.DR PO SCH ×2 (09:09→20:09)
[2021-06-25] MEDS: enoxaparin 40mg/0.4ml syringe SQ SCH ×2 (09:09→20:08)
[2021-06-25] MEDS: aspirin 81mg tab.chew PO SCH (09:10)
[2021-06-25] MEDS: furosemide 40mg tablet PO SCH (09:10)
[2021-06-25] MEDS: normal saline 1000ml 1,000 ML IV SCH ×2 (09:30→20:10)
--- NOTE | 2021-06-25 09:36 | NUR ---
SPO2 82-82% on BIPAP 100%. Dr. Kennedy in ICU procedure, left message for .
--- NOTE | 2021-06-25 09:59 | NUR ---
Pt with Sp02 78-81%. RT paged. Dr. Kennedy called, still in ICU procedure. Message left. Patient is arousable to name.
--- NOTE | 2021-06-25 10:07 | NUR ---
RT at bedside, pt repositioned and IPAP increased. SPo2 87%.
--- NOTE | 2021-06-25 11:32 | NUR ---
patient placed on hospital bed
--- NOTE | 2021-06-25 12:22 | NUR ---
Pulled patient up in bed, adjusted bilateral wrist restraints, turned patient with the use up pillows to the right side, elevated the legs. Unable to comprehend words patient is trying to express, provided reassurance. Patient is now resting comfortably at this time.
--- NOTE | 2021-06-25 12:45 | NUR ---
Dr. Vasquez at bedside to assess patient. Notified Dr. Vasquez regarding decreasing oxygen saturations as low as 80% on bipap with Fi02 of 100% including frequent adjusting of BiPAP mask to maintain saturations, Need for renewal of non behavioral restraints, Patient unable to communicated due to confusion and mumbling non coherently. No new orders per Dr. Vasquez will continue to update him regarding patients condition.
--- NOTE | 2021-06-25 12:54 | NUR ---
Paged Dr. Vasquez regarding patients c/o right upper and lower abd quadrant pain. Dr. Vasquez called back and gave telephone verbal order for abd ultrasound. clerk checker paged technology intern.
--- NOTE | 2021-06-25 13:45 | NUR ---
Sp02 frequently dropping to 80%. Highest sp02 89%. Patient is being frequently repositioned but is disoriented and continues to slide herself down in bed. Dr. Vasquez updated on pt condition, orders to updated Dr. Kennedy. Dr. Kennedy updated. MD would like to prone patient, RN stated concern for safety due to patient's LOC and restraints and no sitter available. MD states patient should be admitted to ICU level care. Dr. Vasquez aware.
--- NOTE | 2021-06-25 14:55 | NUR ---
Dr. Ochoa, Dr. Tim, Dr. Rodriguez at bedside. Patient continues to frequently desaturate to 79%. She is re-directable, but disoriented and pulls at lines when not supervised. Restraints in place. ABG ordered.
[2021-06-25 15:23] LABS: ABG BASE EXCESS 2.5 mmol/L (-2.0-2.0); ABG HCO3 26.7 mmol/L (22.0-26.0); ABG OXYGEN SATURATION 86.1 % (94-97); ABG PCO2 (T) 40.1 mmHg (32.0-45.0); ABG PO2 (T) 50.7 mmHg (75.0-100.0); ALLEN'S TEST POSITIVE; FMetHb 0.3 % (0.0-1.5); FO2Hb 85.8 % (94-97); RESPIRATORY RATE 18 b/min; TOTAL HEMOGLOBIN 12.6 G/dl (12.0-16.0)
--- NOTE | 2021-06-25 15:45 | NUR ---
ABG results reported to Dr. Kennedy. Sp02 continues to remain in low 80s. No new orders at this time.
--- NOTE | 2021-06-25 16:22 | NUR ---
anna Cobos updated on pt condition.
--- NOTE | 2021-06-25 16:59 | NUR ---
1:1 sitter at bedside for safety. Restraints removed.
--- NOTE | 2021-06-25 18:40 | NUR ---
received report from Allison CALLEJAS, pt's sat's have remained in the mid 70's to 80's throughout the day, she did best when she had a 1:1 sitter as she needs frequent reminders to keep her mask on and not touch her iv's. During report pt. pulled off her bipap tubing and de-sat'd into the 50's, pt placed back on oxygen, rate increased to 20 with coached breathing, pt recovered into the 80's.
--- NOTE | 2021-06-25 19:00 | NUR ---
RT at bedside, notes filter was placed inline, pt's o2 is not ideal, he moved filter to exhalation port and pt's sat's improved to 94%. pt. positioned on L.side (position of comfort) and appears to be sleeping. Sitter has gone home, charge aware of pt no longer being 1:1 and RN's concern for deterioration if staff is unable to monitor bipap. Additionally per staff who had the pt last night in restraints pt. moves down the bed and has still been able to remove her bipap.
[2021-06-25] MEDS ORDERED: risperiDONE 0.5mg tablet PO ONE (20:00)
[2021-06-25] MEDS: dexamethasone inj 8 MG in normal saline 50ml IV soln 50 ML IV SCH (20:10)
--- NOTE | 2021-06-25 20:13 | NUR ---
pt agitated and pulled iv line out. new iv started. complete bed change, repositioned pt, bed in low position, call light given, rails up x3
--- NOTE | 2021-06-25 20:30 | NUR ---
pt has full bed bath, ruben change and new iv placed. Sats improved to 97%.
--- NOTE | 2021-06-25 21:00 | NUR ---
pt. sleeping R. lateral, sat's remain 95-98%
--- NOTE | 2021-06-25 22:00 | NUR ---
Pt's sat's remain in the 90's, decreased FIO2 to 95%
[2021-06-25] MEDS ORDERED: REMDESIVIR INJ 100 MG in normal saline 100ml IV soln 80 ML IV SCH (22:08)
--- NOTE | 2021-06-25 22:30 | NUR ---
pt agitated, kicking her feet, sliding down in bed, repositioned and verbally calmed by RN, attempting to lay on her stomach to sleep, assisted by RN. Sats remain 92%
--- NOTE | 2021-06-25 22:40 | NUR ---
pt rolling to stomach, detached bipap tubing, sats into the high 80's, replaced and coached breathing. Sat's rebounded to 96% quickly.
--- NOTE | 2021-06-25 22:50 | NUR ---
pt's fio2 decreased to 90%
[2021-06-26] MEDS: morphine 2 MG/ML inj. syringe IV PRN (00:31)
--- NOTE | 2021-06-26 00:40 | NUR ---
pt c/o restless legs acting up "all day". called dr johnson regarding continuing pt home medications such as gabapentin and requip. stated he would look into it and reorder medications needed that were previously discontinued.
--- NOTE | 2021-06-26 01:24 | NUR ---
pt moved from rm 4 to rm 16 for better observation
[2021-06-26] MEDS: ROPINIRole 1mg tablet PO SCH ×3 (02:06→20:00)
[2021-06-26] MEDS: nortriptyline 25mg capsule PO SCH ×2 (02:06→21:00)
--- NOTE | 2021-06-26 02:57 | NUR ---
Called advised of pt's continued restlessness, discussed precedex, ativan, and haldol, per MD pt is doing well with sats 92-94% on current settings. Md understands difficulty of RN having to repeatedly go in to and verbally calm pt and adjust her in bed but feels that since she has better saturations tonight and increased mentation it's better to not medicate. RN understands this and agrees.
[2021-06-26 03:17] LABS: BASOPHILS # (AUTO) 0.1 X10'3 (0-0.2); BASOPHILS % (AUTO) 0.6 % (0-1); EOSINOPHILS % (AUTO) 0 % (0-6); HEMATOCRIT 34.8 % (35.0-45.0); HEMOGLOBIN 11.6 g/dl (12.0-16.0); LYMPHOCYTES # (AUTO) 0.9 X10'3 (1.1-4.8); LYMPHOCYTES % (AUTO) 8.9 % (21-51); MEAN CORPUSCULAR HEMOGLOBIN 31.1 PG (27.0-31.0); MEAN CORPUSCULAR HGB CONC 33.4 g/dL (33.0-36.5); MEAN CORPUSCULAR VOLUME 93.2 FL (78-98); MEAN PLATELET VOLUME 7.8 FL (7.4-10.4); MONOCYTES # (AUTO) 0.3 X10'3 (0-0.9); MONOCYTES % (AUTO) 3.3 % (2-12); NEUTROPHILS # (AUTO) 8.6 X10'3 (1.8-7.7); NEUTROPHILS % (AUTO) 87.2 % (42-75); PLATELET COUNT 182 X10'3 (140-440); RED BLOOD COUNT 3.73 X10'6 (4.20-5.60); WHITE BLOOD COUNT 9.9 X10'3 (4.5-11.0)
[2021-06-26 03:33] LABS: ALANINE AMINOTRANSFERASE 59 U/L (12-78); ALBUMIN 2.8 G/DL (3.4-5.0); ALBUMIN/GLOBULIN RATIO 0.7 (1.1-1.5); ALKALINE PHOSPHATASE 125 IU/L (46-116); ANION GAP 11 (8-16); ASPARTATE AMINO TRANSFERASE 61 U/L (10-37); BILIRUBIN,TOTAL 0.4 MG/DL (0.1-1.0); BLOOD UREA NITROGEN 31 MG/DL (7-18); BUN/CREATININE RATIO 26.3 (6.6-38.0); C-REACTIVE PROTEIN 3.68 MG/DL (0.0-0.5); CALCIUM 7.4 MG/DL (8.5-10.1); CHLORIDE 111 MMOL/L (99-107); CREATININE 1.18 MG/DL (0.40-0.90); D-DIMER 0.92 MG/L FEU (0-0.50); GLUCOSE 158 MG/DL (70-104); LACTATE DEHYDROGENASE 675 U/L (81-234); MAGNESIUM 1.8 MG/DL (1.5-2.4); PHOSPHORUS 3.5 MG/DL (2.3-4.5); POTASSIUM 3.2 MMOL/L (3.5-5.1); SODIUM 149 MMOL/L (135-145); TOTAL CARBON DIOXIDE 27.4 MMOL/L (24-32); TOTAL PROTEIN 6.6 G/DL (6.4-8.2); eGFR 44 ML/MIN
[2021-06-26 03:43] LABS: PARTIAL THROMBOPLASTIN TIME 26 SECONDS (22-32)
--- NOTE | 2021-06-26 03:45 | NUR ---
pt resting on left side, eyes closed, equal chest rise and fall. no s/s of distress.
[2021-06-26] MEDS: mag hydrox/Alum hydrox/simeth 30ml oral suspension PO SCH ×4 (07:00→21:00)
--- NOTE | 2021-06-26 07:25 | NUR ---
Dr. Kennedy in room to assess patient. Dr. Kennedy stated to trial patient off of BiPAP and place her onto a high flow NC. RT notified, as well as, Patricia CALLEJAS. Will continue to monitor patient and update Dr. Kennedy regarding patients status.
--- NOTE | 2021-06-26 07:55 | NUR ---
RT questioning how long to trial patient on high flow NC with an oxygen saturation of 70-73% consistently. Spoke with Dr. Platt who stated to order an ABG at 0805, RT notified and will review results with Dr. Platt once resulted.
[2021-06-26] MEDS: furosemide 40mg tablet PO SCH (08:00)
[2021-06-26] MEDS: duloxetine 30mg CAPSULE.DR PO SCH ×2 (08:00→20:00)
[2021-06-26] MEDS: levoTHYROXINE 88mcg tablet PO SCH (08:00)
[2021-06-26] MEDS: K and/or MAG REPLACEMENT MC SCH ×2 (08:00→20:00)
[2021-06-26] MEDS: REMDESIVIR INJ 100 MG in normal saline 100ml IV soln 80 ML IV SCH (08:00)
[2021-06-26] MEDS: allopurinol 100mg tablet PO SCH ×2 (08:00→20:00)
[2021-06-26] MEDS: aspirin 81mg tab.chew PO SCH (08:00)
[2021-06-26] MEDS: pantoprazole 40mg Tablet.DR PO SCH ×2 (08:00→20:00)
[2021-06-26] MEDS: dexamethasone inj 8 MG in normal saline 50ml IV soln 50 ML IV SCH ×2 (08:00→20:55)
--- NOTE | 2021-06-26 08:15 | NUR ---
Pt on high flow O2 & unable to maintain saturation levels wnl W/ increasing confusion noted. POC includes intubation, per Dr Kennedy. EDMD Lc aware. All AM po meds hold pending intubation.
[2021-06-26 08:25] LABS: ABG BASE EXCESS 0.9 mmol/L (-2.0-2.0); ABG HCO3 25.4 mmol/L (22.0-26.0); ABG OXYGEN SATURATION 70.8 % (94-97); ABG PCO2 (T) 40.2 mmHg (32.0-45.0); FCOHb 0.3 % (0.0-3.9); FLOW 50 L/min; FMetHb 0.1 % (0.0-1.5); FO2Hb 70.5 % (94-97); TOTAL HEMOGLOBIN 12.2 G/dl (12.0-16.0)
--- NOTE | 2021-06-26 08:56 | NUR ---
Prepared medication for RSI per Dr. Platt and Dr. Kennedy. Moved patient to bed 2 from for intubation.
[2021-06-26] MEDS: midazolam 100mg in NS 100ml 100 ML IV PRN ×2 (09:03→11:24)
[2021-06-26] MEDS: FENTANYL-0.9 % NACL/PF 100 ML IV PRN (09:09)
[2021-06-26] MEDS: normal saline 1000ml 1,000 ML IV SCH ×2 (09:50→15:27)
[2021-06-26] MEDS: enoxaparin 40mg/0.4ml syringe SUBCUT SCH (10:32)
--- NOTE | 2021-06-26 11:03 | NUR ---
discussed pt's increased BP w/ Dr Kennedy; new order received for Lasix 40mg now forllowed by Q8hr, Cardizem 10mg IV push followed by Cardizem drip @ 10mg/hr
[2021-06-26] MEDS ORDERED: diltiazem 5mg/ml 5ml inj. IV ONE (11:05)
[2021-06-26] MEDS ORDERED: furosemide 10 MG/1 ML 10ml inj IV ONE (11:05)
[2021-06-26 11:20] LABS: ABG BASE EXCESS -3.7 mmol/L (-2.0-2.0); ABG HCO3 23.2 mmol/L (22.0-26.0); ABG PCO2 (T) 49.8 mmHg (32.0-45.0); ABG PO2 (T) 96.3 mmHg (75.0-100.0); ALLEN'S TEST POSITIVE; FCOHb 0.3 % (0.0-3.9); FMetHb 0.1 % (0.0-1.5); FO2Hb 95.6 % (94-97); PEEP 16 cm H2O; RESPIRATORY RATE 16 b/min; TIDAL VOLUME 400 mL; TOTAL HEMOGLOBIN 13.2 G/dl (12.0-16.0)
--- NOTE | 2021-06-26 11:25 | NUR ---
Discussed pt's d-dimer trend w/ Dr Cook. She will reorder after reviewing pt's history.
[2021-06-26] MEDS ORDERED: diltiazem-D5W 125mg/125ml 100 ML IV SCH (11:30)
[2021-06-26] MEDS: diltiazem-NS 100mg/100ml 100 ML IV SCH ×2 (11:35→11:40)
--- NOTE | 2021-06-26 11:35 | NUR ---
PREPPED CARDIZEM DRIP, WHEN BP RECYCLED,MED NOT NEEDED @ THIS TIME: bp 133/70, hr 90. hELD.
--- NOTE | 2021-06-26 13:06 | NUR ---
RT PAGED D/T DECREASED O2 LEVELS FOLLOWING RR RATE CHANGE FROM 16 TO 19. O2 @ 90%.
--- NOTE | 2021-06-26 13:33 | NUR ---
Note david in EDM - 06/26/21 at 1340 by PTROTTIER Pt Spo2 88%, RT notified and at bedside at this time. Per RT, pt on 100%O2 and ABG was okay at 12hpm today, Continue monitoring closely
--- NOTE | 2021-06-26 13:40 | NUR ---
First interaction with pt as break nurse, at my arrival, Pt SpO2 88%, RT notified and at bedside at this time. Per RT, pt on 100%O2 and ABG was okay at 12hpm today, Continue monitoring closely.
--- NOTE | 2021-06-26 14:38 | NUR ---
Pt's son Philippe called for update on pt status which was provided.
[2021-06-26] MEDS: furosemide 40mg/4ml inj IV SCH (19:00)
--- NOTE | 2021-06-26 21:08 | NUR ---
Pt resting comfortably. Pt remains ventilated with + rise and fall of chest observed and BBSCTA. No change in versed or fentanyl drips. VSS. Jain bag noted to have 200 ml UOP.
--- NOTE | 2021-06-26 23:20 | NUR ---
First interaction with pt as break nurse. Pt agitated and decrease SPO2 75% bolus Versed and Fentanyl given.
[2021-06-27] VITALS (10 sets, daily range): BP systolic 101–122; BP diastolic 50–68
--- NOTE | 2021-06-27 00:23 | NUR ---
Pt remains on ventilator with no change in settings. VSS. + rise and fall of chest noted. Pt repositioned to R side. No change in drip rates of either fentanyl or versed. Pt well-sedated. Will continue to monitor.
[2021-06-27] MEDS: normal saline 1000ml 1,000 ML IV SCH (01:15)
[2021-06-27 03:11] LABS: ABG BASE EXCESS 1.7 mmol/L (-2.0-2.0); ABG HCO3 26.6 mmol/L (22.0-26.0); ABG OXYGEN SATURATION 93.5 % (94-97); ABG PCO2 (T) 43.2 mmHg (32.0-45.0); ABG PO2 (T) 69.8 mmHg (75.0-100.0); ALLEN'S TEST POSITIVE; FCOHb 0.3 % (0.0-3.9); FMetHb 0.3 % (0.0-1.5); FO2Hb 92.9 % (94-97); PATIENT TEMPERATURE 37.2; PEEP 16 cm H2O; RESPIRATORY RATE 16 b/min; TIDAL VOLUME 425 mL
[2021-06-27 04:24] LABS: BASOPHILS % (AUTO) 0.2 % (0-1); EOSINOPHILS % (AUTO) 0 % (0-6); HEMATOCRIT 32.4 % (35.0-45.0); HEMOGLOBIN 10.6 g/dl (12.0-16.0); LYMPHOCYTES # (AUTO) 0.6 X10'3 (1.1-4.8); LYMPHOCYTES % (AUTO) 6.8 % (21-51); MEAN CORPUSCULAR HEMOGLOBIN 31.1 PG (27.0-31.0); MEAN CORPUSCULAR HGB CONC 32.7 g/dL (33.0-36.5); MEAN CORPUSCULAR VOLUME 95.2 FL (78-98); MONOCYTES # (AUTO) 0.3 X10'3 (0-0.9); MONOCYTES % (AUTO) 3.1 % (2-12); NEUTROPHILS # (AUTO) 8.6 X10'3 (1.8-7.7); NEUTROPHILS % (AUTO) 89.9 % (42-75); PLATELET COUNT 185 X10'3 (140-440); RED BLOOD COUNT 3.41 X10'6 (4.20-5.60); RED CELL DISTRIBUTION WIDTH 15.3 % (11.5-14.5); WHITE BLOOD COUNT 9.5 X10'3 (4.5-11.0)
--- NOTE | 2021-06-27 04:47 | NUR ---
Call received that lab specimen was hemolyzed. Phlebo at bedside for redraw.
[2021-06-27 05:00] LABS: ALANINE AMINOTRANSFERASE 69 U/L (12-78); ALBUMIN 2.5 G/DL (3.4-5.0); ALBUMIN/GLOBULIN RATIO 0.7 (1.1-1.5); ALKALINE PHOSPHATASE 122 IU/L (46-116); ANION GAP 10 (8-16); ASPARTATE AMINO TRANSFERASE 54 U/L (10-37); BILIRUBIN,TOTAL 0.4 MG/DL (0.1-1.0); BLOOD UREA NITROGEN 30 MG/DL (7-18); C-REACTIVE PROTEIN 2.65 MG/DL (0.0-0.5); CALCIUM 7.4 MG/DL (8.5-10.1); CHLORIDE 116 MMOL/L (99-107); CREATININE 1.11 MG/DL (0.40-0.90); GLUCOSE 164 MG/DL (70-104); LACTATE DEHYDROGENASE 552 U/L (81-234); MAGNESIUM 2.2 MG/DL (1.5-2.4); PHOSPHORUS 3.4 MG/DL (2.3-4.5); POTASSIUM 3.5 MMOL/L (3.5-5.1); SODIUM 150 MMOL/L (135-145); TOTAL CARBON DIOXIDE 23.9 MMOL/L (24-32); eGFR 47 ML/MIN
--- NOTE | 2021-06-27 07:00 | NUR ---
FOUND OG OUT AND ON BED, WILL REPLACE
--- NOTE | 2021-06-27 07:17 | NUR ---
SPOKE TO DR. LIND REGARDING SEDATION FOR PT. FENTANYL IS AT 30MCG/HR AND NOT SEDATING WELL. NEW ORDER: INCREASE FENTANYL TO 50MCG/HR
[2021-06-27] MEDS: diltiazem-NS 100mg/100ml 100 ML IV SCH (07:30)
[2021-06-27] MEDS: midazolam 100mg in NS 100ml 100 ML IV PRN (07:58)
[2021-06-27] MEDS: K and/or MAG REPLACEMENT MC SCH ×2 (08:00→20:00)
[2021-06-27] MEDS ORDERED: midazolam 1 mg/ML 2ml injection ONE (08:35)
--- NOTE | 2021-06-27 08:45 | NUR ---
EPISODE OF DESAT INTO THE 70'S, LASTING 5 MIN. SUCTIONED SMALL AMT SECRETIONS VIA ET TUBES. BOLUS FENTANYL 100 MCG. 02 SAT UP TO 92-93 %.
--- NOTE | 2021-06-27 08:50 | NUR ---
OG PLACED, PATENT. DRAINING BROWNISH SECRETIONS
[2021-06-27] MEDS: FENTANYL-0.9 % NACL/PF 100 ML IV PRN ×3 (08:51→22:28)
--- NOTE | 2021-06-27 10:27 | NUR ---
PT REMAINS VENTILATED NO CHANGE IN SETTINGS
--- NOTE | 2021-06-27 10:27 | NUR ---
PT IS ADEQUATELY SEDATED.
[2021-06-27] MEDS: dexamethasone inj 8 MG in normal saline 50ml IV soln 50 ML IV SCH ×2 (10:34→21:57)
[2021-06-27] MEDS: REMDESIVIR INJ 100 MG in normal saline 100ml IV soln 80 ML IV SCH (10:35)
--- NOTE | 2021-06-27 11:42 | NUR ---
SPOKE WITH PT SON SID ALEXANDER [phone]. GAVE HIM UPDATE, PT CONTINUES TO BE INTUBATED, VOIDING WELL, SEDATED. WILL LET HIM KNOW OF ANY CHANGES.
--- NOTE | 2021-06-27 12:41 | NUR ---
TF Consult: Recs below. Will monitor for TF tolerance and adjustment needs on vent. Initial: Pt intubated admit DX sepsis, COVID-19, acute respiratory failure, and ARDS per MD note. Hx T2DM A1C 6.6 April this year appropriate given age. MAP 74 this AM per EMR w/ TF to start today per eap clinician; pending TF consult at this time. TF recs below using IBW as pending scaled wt this admit. Would benefit from routine bowel care this admit currently w/ PRN MoM and dulcolax available. Will monitor for TF tolerance and adjustment needs once initiated. Rec: 1. Continuous TF per MD using Vital High Protein at 65ml/hr goal; to provide 1560ml volume, 1560 kcals, 1310ml free water, and 137g protein. 2. additional water flush 200ml Q4H; adjust per eap clinician recs 3. PALB Q /; scaled wt this admit and subsequent daily wts 4. routine bowel care 5. monitor for TF tolerance Addendum: 06/27/21 at [address] Amended: Links added.
[2021-06-27 13:30] LABS: CLARITY,URINE CLOUDY (Clear); COLOR,URINE YELLOW (Yellow); GLUCOSE, URINE NEGATIVE (Neg); KETONES,URINE NEGATIVE (Neg); LEUKOCYTE ESTERASE ,URINE MODERATE (Neg); NITRITES, URINE POSITIVE (Neg); OCCULT BLOOD,URINE LARGE (Neg); PROTEIN,URINE 30 mg/dl (Neg)
[2021-06-27 13:35] LABS: UA COLLECTION TYPE FOLEY CATH
[2021-06-27 13:39] LABS: BACTERIA,URINE 4+ /HPF (Neg); MUCUS STRANDS NONE SEEN /LPF (Neg); RBC,URINE 20-50 /HPF (0-2); SQUAMOUS EPITHELIAL CELL,UR NONE SEEN /LPF (FEW); TRANSITIONAL EPI CELLS,URINE FEW /HPF; WBC CLUMPS,URINE FEW /HPF (NEGATIVE); WBC,URINE 50-100 /HPF (0-4)
[2021-06-27] MEDS ORDERED: mag hydrox/Alum hydrox/simeth 30ml oral suspension OGT PRN (13:45)
[2021-06-27] MEDS ORDERED: magnesium hydroxide 30ml (MOM) UD suspension OGT PRN (13:45)
[2021-06-27] MEDS: propofol 1000mg/100ml bottle 100 ML IV SCH (15:29)
[2021-06-27] MEDS: furosemide 40mg/4ml inj IV SCH ×3 (15:35→16:00)
[2021-06-27] MEDS: mag hydrox/Alum hydrox/simeth 30ml oral suspension OGT SCH ×2 (17:00→22:19)
--- NOTE | 2021-06-27 17:57 | NUR ---
pt admitted into bed 2009 at 1445. Hepa filter placed in room. pt arrived with no belongings.
[2021-06-27] MEDS: duloxetine 30mg CAPSULE.DR PO SCH (20:00)
[2021-06-27] MEDS: nortriptyline 25mg capsule OGT SCH (21:00)
[2021-06-27] MEDS: enoxaparin 40mg/0.4ml syringe SUBCUT SCH (21:56)
[2021-06-27] MEDS: pantoprazole 40 MG vial IV SCH (22:09)
[2021-06-27] MEDS: ROPINIRole 1mg tablet OGT SCH (22:18)
[2021-06-27] MEDS: allopurinol 100mg tablet OGT SCH (22:19)
[2021-06-28] VITALS (23 sets, daily range): BP systolic 101–137; BP diastolic 52–86
[2021-06-28] MEDS: furosemide 40mg/4ml inj IV SCH ×4 (02:06→23:35)
[2021-06-28] MEDS: mineral oil/petrolatum ophthal oint EACHEYE SCH ×4 (02:29→20:46)
[2021-06-28 03:16] LABS: BASOPHILS % (AUTO) 0.1 % (0-1); EOSINOPHILS % (AUTO) 0 % (0-6); HEMATOCRIT 34.5 % (35.0-45.0); HEMOGLOBIN 11.2 g/dl (12.0-16.0); LYMPHOCYTES # (AUTO) 0.5 X10'3 (1.1-4.8); MEAN CORPUSCULAR HEMOGLOBIN 30.7 PG (27.0-31.0); MEAN CORPUSCULAR HGB CONC 32.5 g/dL (33.0-36.5); MEAN CORPUSCULAR VOLUME 94.4 FL (78-98); MEAN PLATELET VOLUME 8.3 FL (7.4-10.4); MONOCYTES # (AUTO) 0.2 X10'3 (0-0.9); MONOCYTES % (AUTO) 1.8 % (2-12); NEUTROPHILS # (AUTO) 10.9 X10'3 (1.8-7.7); NEUTROPHILS % (AUTO) 94.1 % (42-75); PLATELET COUNT 179 X10'3 (140-440); RED BLOOD COUNT 3.66 X10'6 (4.20-5.60); RED CELL DISTRIBUTION WIDTH 15.3 % (11.5-14.5); WHITE BLOOD COUNT 11.6 X10'3 (4.5-11.0)
[2021-06-28] MEDS: diltiazem-NS 100mg/100ml 100 ML IV SCH ×2 (03:30→23:30)
[2021-06-28 03:32] LABS: ALANINE AMINOTRANSFERASE 60 U/L (12-78); ALBUMIN 2.5 G/DL (3.4-5.0); ALBUMIN/GLOBULIN RATIO 0.7 (1.1-1.5); ALKALINE PHOSPHATASE 112 IU/L (46-116); ANION GAP 11 (8-16); ASPARTATE AMINO TRANSFERASE 39 U/L (10-37); BILIRUBIN,TOTAL 0.4 MG/DL (0.1-1.0); BLOOD UREA NITROGEN 31 MG/DL (7-18); BUN/CREATININE RATIO 28.4 (6.6-38.0); C-REACTIVE PROTEIN 6.78 MG/DL (0.0-0.5); CALCIUM 7.8 MG/DL (8.5-10.1); CHLORIDE 115 MMOL/L (99-107); CREATININE 1.09 MG/DL (0.40-0.90); GLUCOSE 182 MG/DL (70-104); LACTATE DEHYDROGENASE 552 U/L (81-234); MAGNESIUM 2.2 MG/DL (1.5-2.4); PHOSPHORUS 3.1 MG/DL (2.3-4.5); POTASSIUM 3.1 MMOL/L (3.5-5.1); SODIUM 153 MMOL/L (135-145); TOTAL CARBON DIOXIDE 27.1 MMOL/L (24-32); TOTAL PROTEIN 6.2 G/DL (6.4-8.2); eGFR 48 ML/MIN
[2021-06-28 03:37] LABS: D-DIMER 4.78 MG/L FEU (0-0.50)
[2021-06-28] MEDS: FENTANYL-0.9 % NACL/PF 100 ML IV PRN ×4 (03:40→22:32)
[2021-06-28 03:57] LABS: ABG BASE EXCESS 2.3 mmol/L (-2.0-2.0); ABG HCO3 27.8 mmol/L (22.0-26.0); ABG OXYGEN SATURATION 88.8 % (94-97); ABG PCO2 (T) 46.8 mmHg (32.0-45.0); ABG PO2 (T) 57.1 mmHg (75.0-100.0); ALLEN'S TEST POSITIVE; FCOHb 0.3 % (0.0-3.9); FMetHb 0.1 % (0.0-1.5); FO2Hb 88.4 % (94-97); PEEP 14 cm H2O; RESPIRATORY RATE 16 b/min; TIDAL VOLUME 400 mL; TOTAL HEMOGLOBIN 12.4 G/dl (12.0-16.0)
[2021-06-28] MEDS: NORepinephrine 8mg/ 250ml NS 250 ML IV SCH ×3 (06:17→21:44)
[2021-06-28] MEDS ORDERED: potassium Cl 20 mEq SR tablet PO PRN ×2 (06:30)
[2021-06-28] MEDS: duloxetine 30mg CAPSULE.DR PO SCH ×2 (06:51→20:00)
[2021-06-28] MEDS: K and/or MAG REPLACEMENT MC SCH ×2 (07:02→20:00)
[2021-06-28] MEDS: mag hydrox/Alum hydrox/simeth 30ml oral suspension OGT SCH ×4 (07:57→20:42)
[2021-06-28] MEDS: dexamethasone inj 8 MG in normal saline 50ml IV soln 50 ML IV SCH (07:58)
[2021-06-28] MEDS: ROPINIRole 1mg tablet OGT SCH ×2 (07:58→20:00)
[2021-06-28] MEDS: pantoprazole 40 MG vial IV SCH ×2 (07:58→20:42)
[2021-06-28] MEDS: aspirin 81mg tab.chew OGT SCH (07:58)
[2021-06-28] MEDS: metoclopramide 5 mg/ml inj IV PRN ×2 (07:58→22:32)
[2021-06-28] MEDS: enoxaparin 40mg/0.4ml syringe SUBCUT SCH ×2 (07:59→21:12)
[2021-06-28] MEDS: levoTHYROXINE 88mcg tablet OGT SCH (07:59)
[2021-06-28] MEDS: allopurinol 100mg tablet OGT SCH ×2 (07:59→20:41)
[2021-06-28] MEDS: potassium Cl 40MEQ/250ML bag 270 ML IV PRN (08:00)
[2021-06-28] MEDS: propofol 1000mg/100ml bottle 100 ML IV SCH ×3 (11:23→23:34)
[2021-06-28] MEDS ORDERED: dextrose ORAL solution 15 GM/59 ML bottle PO PRN ×2 (14:20)
[2021-06-28] MEDS ORDERED: dextrose 50%-water 50ml dispensing syringe IV PRN ×2 (14:20)
[2021-06-28] MEDS: insulin regular, human U-100 3ml vial - multi-dose SQ SCH ×2 (14:59→21:07)
--- NOTE | 2021-06-28 19:00 | NUR ---
Patient in room CICU 2008. I have received report from AM RN and had the opportunity to ask questions and assume patient care.
[2021-06-28] MEDS: nortriptyline 25mg capsule OGT SCH (20:42)
[2021-06-28] MEDS: insulin glargine (Lantus) pen - multi-dose SQ SCH (21:09)
[2021-06-28] MEDS: ciprofloxacin lact 400MG/200ML 200 ML IV SCH (23:47)
[2021-06-29] VITALS (24 sets, daily range): BP systolic 98–137; BP diastolic 52–84
[2021-06-29] MEDS: mineral oil/petrolatum ophthal oint EACHEYE SCH ×4 (02:11→20:30)
[2021-06-29 02:25] LABS: ABG BASE EXCESS 3.6 mmol/L (-2.0-2.0); ABG HCO3 29.1 mmol/L (22.0-26.0); ABG OXYGEN SATURATION 88.6 % (94-97); ABG PCO2 (T) 47.3 mmHg (32.0-45.0); ABG PO2 (T) 55.3 mmHg (75.0-100.0); ALLEN'S TEST POSITIVE; FCOHb 0.1 % (0.0-3.9); FMetHb 0.1 % (0.0-1.5); FO2Hb 88.4 % (94-97); PATIENT TEMPERATURE 36.9; PEEP 14 cm H2O; RESPIRATORY RATE 16 b/min; TIDAL VOLUME 400 mL
[2021-06-29 03:44] LABS: MEAN CORPUSCULAR HEMOGLOBIN 30.8 PG (27.0-31.0); MEAN PLATELET VOLUME 8.6 FL (7.4-10.4)
[2021-06-29 03:45] LABS: HEMATOCRIT 37.7 % (35.0-45.0); HEMOGLOBIN 12.4 g/dl (12.0-16.0); MEAN CORPUSCULAR VOLUME 93.3 FL (78-98); PLATELET COUNT 193 X10'3 (140-440); RED BLOOD COUNT 4.04 X10'6 (4.20-5.60); RED CELL DISTRIBUTION WIDTH 15.3 % (11.5-14.5); WHITE BLOOD COUNT 17.9 X10'3 (4.5-11.0)
[2021-06-29] MEDS: propofol 1000mg/100ml bottle 100 ML IV SCH ×5 (03:46→21:34)
[2021-06-29 03:49] LABS: ALANINE AMINOTRANSFERASE 60 U/L (12-78); ALBUMIN 2.8 G/DL (3.4-5.0); ALBUMIN/GLOBULIN RATIO 0.7 (1.1-1.5); ALKALINE PHOSPHATASE 128 IU/L (46-116); ANION GAP 8 (8-16); ASPARTATE AMINO TRANSFERASE 42 U/L (10-37); BILIRUBIN,TOTAL 0.4 MG/DL (0.1-1.0); BLOOD UREA NITROGEN 37 MG/DL (7-18); BUN/CREATININE RATIO 30.3 (6.6-38.0); C-REACTIVE PROTEIN 6.95 MG/DL (0.0-0.5); CALCIUM 8.3 MG/DL (8.5-10.1); CHLORIDE 115 MMOL/L (99-107); CREATININE 1.22 MG/DL (0.40-0.90); GLUCOSE 138 MG/DL (70-104); LACTATE DEHYDROGENASE 675 U/L (81-234); MAGNESIUM 2.8 MG/DL (1.5-2.4); POTASSIUM 3.1 MMOL/L (3.5-5.1); TOTAL CARBON DIOXIDE 32.1 MMOL/L (24-32); eGFR 42 ML/MIN
[2021-06-29 03:51] LABS: SODIUM 155 MMOL/L (135-145)
[2021-06-29 04:12] LABS: TOTAL CELLS COUNTED 100
[2021-06-29 04:13] LABS: PLATELET ESTIMATE NORMAL
[2021-06-29] MEDS: potassium Cl 40MEQ/250ML bag 270 ML IV PRN (05:04)
[2021-06-29] MEDS ORDERED: sodium chloride 0.45% 1,000 ML IV SCH (05:10)
[2021-06-29] MEDS: K and/or MAG REPLACEMENT MC SCH ×2 (07:09→19:32)
[2021-06-29] MEDS: duloxetine 30mg CAPSULE.DR PO SCH ×2 (07:09→19:24)
[2021-06-29] MEDS: ROPINIRole 1mg tablet OGT SCH ×2 (07:32→20:29)
[2021-06-29] MEDS: aspirin 81mg tab.chew OGT SCH (07:32)
[2021-06-29] MEDS: allopurinol 100mg tablet OGT SCH ×2 (07:32→19:23)
[2021-06-29] MEDS: levoTHYROXINE 88mcg tablet OGT SCH (07:32)
[2021-06-29] MEDS: dexamethasone inj 10 MG in normal saline 50ml IV soln 50 ML IV SCH ×2 (07:33→19:23)
[2021-06-29] MEDS: mag hydrox/Alum hydrox/simeth 30ml oral suspension OGT SCH (07:33)
[2021-06-29] MEDS: ciprofloxacin lact 400MG/200ML 200 ML IV SCH ×2 (07:33→19:24)
[2021-06-29] MEDS: furosemide 40mg/4ml inj IV SCH (07:33)
[2021-06-29] MEDS: pantoprazole 40 MG vial IV SCH ×2 (07:33→19:23)
[2021-06-29] MEDS: enoxaparin 40mg/0.4ml syringe SUBCUT SCH ×2 (07:34→19:23)
[2021-06-29] MEDS: sodium chloride 0.45% 1,000 ML IV SCH ×3 (08:15→17:07)
[2021-06-29] MEDS: FENTANYL-0.9 % NACL/PF 100 ML IV PRN ×3 (08:16→19:27)
[2021-06-29] MEDS: insulin regular, human U-100 3ml vial - multi-dose SQ SCH ×3 (08:55→21:01)
[2021-06-29] MEDS: ipratropium/albuterol 3ml nebule NEB SCH ×4 (11:00→23:15)
[2021-06-29] MEDS: NORepinephrine 8mg/ 250ml NS 250 ML IV SCH (11:15)
[2021-06-29 11:42] LABS: SODIUM,URINE RANDOM 77 MEQ/L
[2021-06-29 11:54] LABS: OSMOLALITY UA 393 MOSM/K (50-1400)
[2021-06-29 15:58] LABS: ABG BASE EXCESS 5.9 mmol/L (-2.0-2.0); ABG HCO3 30.6 mmol/L (22.0-26.0); ABG OXYGEN SATURATION 94.8 % (94-97); ABG PCO2 (T) 45.3 mmHg (32.0-45.0); ABG PO2 (T) 74.5 mmHg (75.0-100.0); ALLEN'S TEST POSITIVE; FCOHb 0.3 % (0.0-3.9); FMetHb 0.3 % (0.0-1.5); FO2Hb 94.2 % (94-97); PATIENT TEMPERATURE 37.1; PEEP 16 cm H2O; RESPIRATORY RATE 16 b/min; TOTAL HEMOGLOBIN 11.7 G/dl (12.0-16.0)
--- NOTE | 2021-06-29 18:17 | NUR ---
Patient in room CICU 2008. I have received report from JÚNIOR Markham and had the opportunity to ask questions and assume patient care. Patient is intubated/sedated and on Rotorest bed, I will continue to monitor.
[2021-06-29] MEDS: nortriptyline 25mg capsule OGT SCH (19:24)
[2021-06-29] MEDS: lactobacillus rhamnosus 10,000 MMU CELLS/CAPSULE PO SCH (19:24)
[2021-06-29] MEDS: metoclopramide 5 mg/ml inj IV PRN (19:24)
[2021-06-29] MEDS: diltiazem-NS 100mg/100ml 100 ML IV SCH (19:30)
[2021-06-29] MEDS: insulin glargine (Lantus) pen - multi-dose SQ SCH (21:01)
[2021-06-30] VITALS (24 sets, daily range): BP systolic 90–169; BP diastolic 40–80
[2021-06-30] MEDS: propofol 1000mg/100ml bottle 100 ML IV SCH ×5 (00:54→21:18)
[2021-06-30] MEDS: FENTANYL-0.9 % NACL/PF 100 ML IV PRN ×5 (00:55→22:17)
[2021-06-30 02:57] LABS: ABG BASE EXCESS 4.2 mmol/L (-2.0-2.0); ABG HCO3 28.2 mmol/L (22.0-26.0); ABG OXYGEN SATURATION 96.9 % (94-97); ABG PCO2 (T) 39.4 mmHg (32.0-45.0); ABG PO2 (T) 94.2 mmHg (75.0-100.0); ALLEN'S TEST POSITIVE; FCOHb 0.3 % (0.0-3.9); FMetHb 0.1 % (0.0-1.5); FO2Hb 96.5 % (94-97); PATIENT TEMPERATURE 36.7; PEEP 16 cm H2O; RESPIRATORY RATE 16 b/min
[2021-06-30 03:00] LABS: D-DIMER 2.17 MG/L FEU (0-0.50)
[2021-06-30] MEDS: insulin regular, human U-100 3ml vial - multi-dose SQ SCH ×4 (03:19→20:51)
[2021-06-30] MEDS: mineral oil/petrolatum ophthal oint EACHEYE SCH ×4 (03:58→19:59)
[2021-06-30] MEDS: ipratropium/albuterol 3ml nebule NEB SCH ×6 (04:07→23:11)
[2021-06-30] MEDS: sodium chloride 0.45% 1,000 ML IV SCH ×2 (04:15→21:20)
[2021-06-30] MEDS: NORepinephrine 8mg/ 250ml NS 250 ML IV SCH ×2 (04:38→20:01)
--- NOTE | 2021-06-30 06:14 | NUR ---
Problems reprioritized. Patient report given, questions answered & plan of care reviewed with JÚNIOR Reina.
[2021-06-30 07:49] LABS: BASOPHILS % (AUTO) 0.1 % (0-1); EOSINOPHILS % (AUTO) 0 % (0-6); HEMATOCRIT 31.3 % (35.0-45.0); HEMOGLOBIN 10.3 g/dl (12.0-16.0); LYMPHOCYTES # (AUTO) 0.6 X10'3 (1.1-4.8); LYMPHOCYTES % (AUTO) 4.1 % (21-51); MEAN CORPUSCULAR HEMOGLOBIN 30.7 PG (27.0-31.0); MEAN PLATELET VOLUME 8.2 FL (7.4-10.4); MONOCYTES # (AUTO) 0.1 X10'3 (0-0.9); MONOCYTES % (AUTO) 0.4 % (2-12); NEUTROPHILS # (AUTO) 13.7 X10'3 (1.8-7.7); NEUTROPHILS % (AUTO) 95.4 % (42-75); PLATELET COUNT 154 X10'3 (140-440); RED BLOOD COUNT 3.36 X10'6 (4.20-5.60); RED CELL DISTRIBUTION WIDTH 14.8 % (11.5-14.5); WHITE BLOOD COUNT 14.3 X10'3 (4.5-11.0)
[2021-06-30] MEDS: duloxetine 30mg CAPSULE.DR PO SCH (08:00)
[2021-06-30] MEDS: K and/or MAG REPLACEMENT MC SCH ×2 (08:00→20:00)
[2021-06-30 08:05] LABS: ALANINE AMINOTRANSFERASE 39 U/L (12-78); ALBUMIN 2.2 G/DL (3.4-5.0); ALBUMIN/GLOBULIN RATIO 0.6 (1.1-1.5); ALKALINE PHOSPHATASE 108 IU/L (46-116); ANION GAP 7 (8-16); ASPARTATE AMINO TRANSFERASE 29 U/L (10-37); BILIRUBIN,TOTAL 0.4 MG/DL (0.1-1.0); BLOOD UREA NITROGEN 29 MG/DL (7-18); BUN/CREATININE RATIO 30.2 (6.6-38.0); C-REACTIVE PROTEIN 11.94 MG/DL (0.0-0.5); CALCIUM 8.1 MG/DL (8.5-10.1); CHLORIDE 108 MMOL/L (99-107); CREATININE 0.96 MG/DL (0.40-0.90); GLUCOSE 177 MG/DL (70-104); LACTATE DEHYDROGENASE 586 U/L (81-234); MAGNESIUM 2.7 MG/DL (1.5-2.4); POTASSIUM 3.5 MMOL/L (3.5-5.1); SODIUM 144 MMOL/L (135-145); TOTAL CARBON DIOXIDE 28.6 MMOL/L (24-32); eGFR 56 ML/MIN
[2021-06-30] MEDS: dexamethasone inj 10 MG in normal saline 50ml IV soln 50 ML IV SCH ×3 (08:09→19:57)
[2021-06-30] MEDS: furosemide 40mg/4ml inj IV SCH (08:09)
[2021-06-30] MEDS: pantoprazole 40 MG vial IV SCH ×2 (08:09→19:59)
[2021-06-30] MEDS: enoxaparin 40mg/0.4ml syringe SUBCUT SCH ×2 (08:09→20:01)
[2021-06-30] MEDS: aspirin 81mg tab.chew OGT SCH (08:10)
[2021-06-30] MEDS: allopurinol 100mg tablet OGT SCH ×2 (08:10→20:01)
[2021-06-30] MEDS: levoTHYROXINE 88mcg tablet OGT SCH (08:11)
[2021-06-30] MEDS: ROPINIRole 1mg tablet OGT SCH ×2 (08:11→20:00)
[2021-06-30] MEDS: lactobacillus rhamnosus 10,000 MMU CELLS/CAPSULE PO SCH ×2 (08:11→20:00)
[2021-06-30] MEDS: ciprofloxacin lact 400MG/200ML 200 ML IV SCH ×2 (08:56→19:59)
[2021-06-30 09:56] LABS: ALLEN'S TEST POSITIVE
--- NOTE | 2021-06-30 11:28 | NUR ---
Reassessment: Pt remains intubated on rotorest TF currently at 45ml/hr w/ GRV 400-500ml last night currently 375ml this AM per EMR. Noted pt free water has been increased to 300ml Q4H w/ serum Na down to 144 this AM from prior 155. Unsure if TF ever reached goal since 06/27 as documented at full strength but no rate documentation on 06/28 and only other rate documented is 45ml/hr in EMR. Pt still w/ no BM this admit at least 7 days receiving PRN reglan 06/29; would benefit from routine bowel care this admit. Noted pt receiving propofol at 2.591ml/hr; no need to adjust TF at this time. Will monitor for TF advancement, tolerance, and adjustment needs pending further propofol rates on vent. Rec: 1. Continuous TF per MD using Vital High Protein at 65ml/hr goal; to provide 1560ml volume, 1560 kcals, 1310ml free water, and 137g protein. 2. additional water flush 300ml Q4H per pinked edge sewing machine operator recs 3. PALB Q /; scaled wt this admit and subsequent daily wts 4. routine bowel care; at least 7 days constipation 5. monitor for TF tolerance and adjustment needs pending further propofol rates Addendum: 06/30/21 at [address] Amended: Links added.
[2021-06-30] MEDS: DEXMEDETOMIDINE 400mcg/4ml inj 400 MCG in normal saline 100ml IV soln 96 ML IV SCH ×3 (12:50→22:16)
[2021-06-30] MEDS: metoclopramide 5 mg/ml inj IV SCH ×2 (13:14→20:00)
[2021-06-30] MEDS: diltiazem-NS 100mg/100ml 100 ML IV SCH (15:30)
--- NOTE | 2021-06-30 18:12 | NUR ---
Problems reprioritized. Patient report given, questions answered & plan of care reviewed with JÚNIOR Lopes.
--- NOTE | 2021-06-30 18:15 | NUR ---
Patient in room CICU 2008. I have received report from JÚNIOR Reina and had the opportunity to ask questions and assume patient care. Patient intubated/sedated and still on rotorest bed, I will continue to monitor.
[2021-06-30] MEDS ORDERED: ondansetron/PF 4mg/2ml inj ONE (18:46)
[2021-06-30] MEDS ORDERED: ondansetron/PF 4mg/2ml inj IV PRN (18:50)
[2021-06-30] MEDS: nortriptyline 25mg capsule OGT SCH (20:00)
[2021-06-30] MEDS: insulin glargine (Lantus) pen - multi-dose SQ SCH (20:50)
[2021-07-01] VITALS (24 sets, daily range): BP systolic 90–174; BP diastolic 47–88
[2021-07-01] MEDS: mineral oil/petrolatum ophthal oint EACHEYE SCH ×4 (02:00→20:11)
[2021-07-01] MEDS: ipratropium/albuterol 3ml nebule NEB SCH ×6 (02:46→23:36)
[2021-07-01 03:03] LABS: ABG BASE EXCESS 5.4 mmol/L (-2.0-2.0); ABG HCO3 30.5 mmol/L (22.0-26.0); ABG OXYGEN SATURATION 95.7 % (94-97); ABG PCO2 (T) 44.9 mmHg (32.0-45.0); ABG PO2 (T) 79.9 mmHg (75.0-100.0); ALLEN'S TEST POSITIVE; FCOHb 0.3 % (0.0-3.9); FO2Hb 95.4 % (94-97); PATIENT TEMPERATURE 36.2; PEEP 16 cm H2O; RESPIRATORY RATE 16 b/min
[2021-07-01] MEDS: insulin regular, human U-100 3ml vial - multi-dose SQ SCH ×4 (03:15→20:34)
[2021-07-01 03:23] LABS: HEMOGLOBIN 10.9 g/dl (12.0-16.0); MEAN CORPUSCULAR HEMOGLOBIN 31.7 PG (27.0-31.0); MEAN CORPUSCULAR VOLUME 93.1 FL (78-98); MEAN PLATELET VOLUME 9.4 FL (7.4-10.4); PLATELET COUNT 139 X10'3 (140-440); RED BLOOD COUNT 3.44 X10'6 (4.20-5.60); RED CELL DISTRIBUTION WIDTH 15.1 % (11.5-14.5); WHITE BLOOD COUNT 10.4 X10'3 (4.5-11.0)
[2021-07-01 03:37] LABS: D-DIMER 3.19 MG/L FEU (0-0.50)
[2021-07-01 03:52] LABS: ALANINE AMINOTRANSFERASE 43 U/L (12-78); ALBUMIN 2.1 G/DL (3.4-5.0); ALBUMIN/GLOBULIN RATIO 0.6 (1.1-1.5); ALKALINE PHOSPHATASE 101 IU/L (46-116); ANION GAP 8 (8-16); ASPARTATE AMINO TRANSFERASE 30 U/L (10-37); BILIRUBIN,TOTAL 0.5 MG/DL (0.1-1.0); BLOOD UREA NITROGEN 25 MG/DL (7-18); BUN/CREATININE RATIO 30.9 (6.6-38.0); C-REACTIVE PROTEIN 8.57 MG/DL (0.0-0.5); CALCIUM 7.6 MG/DL (8.5-10.1); CHLORIDE 105 MMOL/L (99-107); CREATININE 0.81 MG/DL (0.40-0.90); LACTATE DEHYDROGENASE 522 U/L (81-234); POTASSIUM 3.1 MMOL/L (3.5-5.1); SODIUM 143 MMOL/L (135-145); TOTAL CARBON DIOXIDE 30.1 MMOL/L (24-32); TOTAL PROTEIN 5.9 G/DL (6.4-8.2); eGFR 68 ML/MIN
[2021-07-01] MEDS: FENTANYL-0.9 % NACL/PF 100 ML IV PRN ×3 (04:02→18:59)
[2021-07-01 04:13] LABS: GLUCOSE 152 MG/DL (70-104)
[2021-07-01 04:51] LABS: TOTAL CELLS COUNTED 100
[2021-07-01 04:52] LABS: BANDS% (MANUAL) 3 % (0-10); LYMPHOCYTES % (MANUAL) 9 % (21-51); METAMYLEOCYTES% (MANUAL) 4 % (0-0); MONOCYTES % (MANUAL) 2 % (2-12); NEUTROPHILS % (MANUAL) 82 % (42-75); PLATELET ESTIMATE NORMAL
--- NOTE | 2021-07-01 06:27 | NUR ---
Problems reprioritized. Patient report given, questions answered & plan of care reviewed with JÚNIOR Reina.
[2021-07-01] MEDS: sodium chloride 0.45% 1,000 ML IV SCH (07:20)
[2021-07-01] MEDS: K and/or MAG REPLACEMENT MC SCH ×2 (08:00→20:00)
[2021-07-01] MEDS: dexamethasone inj 10 MG in normal saline 50ml IV soln 50 ML IV SCH ×2 (08:20→20:11)
[2021-07-01] MEDS: aspirin 81mg tab.chew OGT SCH (08:21)
[2021-07-01] MEDS: ROPINIRole 1mg tablet OGT SCH ×2 (08:21→20:10)
[2021-07-01] MEDS: allopurinol 100mg tablet OGT SCH ×2 (08:21→20:11)
[2021-07-01] MEDS: levoTHYROXINE 88mcg tablet OGT SCH (08:21)
[2021-07-01] MEDS: metoclopramide 5 mg/ml inj IV SCH ×3 (08:21→20:10)
[2021-07-01] MEDS: lactobacillus rhamnosus 10,000 MMU CELLS/CAPSULE PO SCH (08:21)
[2021-07-01] MEDS: pantoprazole 40 MG vial IV SCH ×2 (08:21→20:11)
[2021-07-01] MEDS: furosemide 40mg/4ml inj IV SCH (08:22)
[2021-07-01] MEDS: enoxaparin 40mg/0.4ml syringe SUBCUT SCH ×2 (08:54→20:10)
[2021-07-01] MEDS: ciprofloxacin lact 400MG/200ML 200 ML IV SCH ×2 (08:54→20:11)
[2021-07-01 09:54] LABS: MAGNESIUM 2.4 MG/DL (1.5-2.4)
[2021-07-01 10:01] LABS: PHOSPHORUS 3.6 MG/DL (2.3-4.5)
[2021-07-01] MEDS ORDERED: bisacodyl 10mg suppository rectal RC PRN (11:00)
[2021-07-01] MEDS ORDERED: bisacodyl 10mg suppository rectal RC ONE (11:00)
[2021-07-01] MEDS ORDERED: sennosides 8.6mg tablet OGT PRN (11:00)
[2021-07-01] MEDS ORDERED: methylnaltrexone br 12mg/0.6ml inj***SubQ only SQ PRN (11:15)
--- NOTE | 2021-07-01 11:29 | NUR ---
F/u: D/w MD and multidisciplinary team at critical care rounds that patient with no BM since admit and with no routine bowel care available, though is receiving routine IV Reglan TID. Pt to begin routine and PRN bowel care with PRN Relistor and Dulcolax suppository x 2 today per MD. Noted patient's water flushes were decreased to 150 mL Q4H per MD. Will continue to follow closely. Addendum: 07/01/21 at [address] Amended: Links added.
[2021-07-01] MEDS: DEXMEDETOMIDINE 400mcg/4ml inj 400 MCG in normal saline 100ml IV soln 96 ML IV SCH ×4 (11:43→22:59)
[2021-07-01] MEDS: potassium Cl 40MEQ/250ML bag 270 ML IV PRN (11:44)
[2021-07-01] MEDS: propofol 1000mg/100ml bottle 100 ML IV SCH (12:05)
[2021-07-01] MEDS ORDERED: dextrose ORAL solution 15 GM/59 ML bottle OGT PRN ×2 (13:53)
[2021-07-01] MEDS ORDERED: potassium Cl 20 mEq SR tablet OGT PRN (13:54)
[2021-07-01] MEDS: docusate sodium 100mg/10ml UD cup OGT SCH ×2 (13:59→20:10)
--- NOTE | 2021-07-01 18:12 | NUR ---
Problems reprioritized. Patient report given, questions answered & plan of care reviewed with JÚNIOR Lopes.
--- NOTE | 2021-07-01 18:15 | NUR ---
Patient in room CICU 2008. I have received report from JÚNIOR Reina and had the opportunity to ask questions and assume patient care. Patient still intubated/sedated and on rotorest bed, I will continue to monitor.
[2021-07-01] MEDS: lactobacillus rhamnosus 10,000 MMU CELLS/CAPSULE OGT SCH (20:10)
[2021-07-01] MEDS: polyethylene glycol 3350 17gm powd pack OGT SCH (20:11)
[2021-07-01] MEDS: insulin glargine (Lantus) pen - multi-dose SQ SCH (20:35)
[2021-07-02] VITALS (24 sets, daily range): BP systolic 106–156; BP diastolic 51–99
[2021-07-02] MEDS: propofol 1000mg/100ml bottle 100 ML IV SCH ×3 (00:16→09:58)
[2021-07-02] MEDS: FENTANYL-0.9 % NACL/PF 100 ML IV PRN ×6 (00:21→23:38)
[2021-07-02] MEDS: mineral oil/petrolatum ophthal oint EACHEYE SCH ×4 (02:12→20:33)
[2021-07-02] MEDS: DEXMEDETOMIDINE 400mcg/4ml inj 400 MCG in normal saline 100ml IV soln 96 ML IV SCH ×4 (02:52→23:38)
[2021-07-02 03:08] LABS: D-DIMER 4.69 MG/L FEU (0-0.50)
[2021-07-02 03:09] LABS: HEMATOCRIT 33.2 % (35.0-45.0); HEMOGLOBIN 11.1 g/dl (12.0-16.0); MEAN CORPUSCULAR VOLUME 93.9 FL (78-98); RED BLOOD COUNT 3.54 X10'6 (4.20-5.60); RED CELL DISTRIBUTION WIDTH 14.9 % (11.5-14.5)
[2021-07-02 03:10] LABS: MEAN CORPUSCULAR HEMOGLOBIN 31.3 PG (27.0-31.0); MEAN CORPUSCULAR HGB CONC 33.4 g/dL (33.0-36.5); MEAN PLATELET VOLUME 9.2 FL (7.4-10.4); PLATELET COUNT 143 X10'3 (140-440); WHITE BLOOD COUNT 9.4 X10'3 (4.5-11.0)
[2021-07-02 03:18] LABS: ALBUMIN/GLOBULIN RATIO 0.5 (1.1-1.5); ALKALINE PHOSPHATASE 92 IU/L (46-116); ANION GAP 8 (8-16); BILIRUBIN,TOTAL 0.5 MG/DL (0.1-1.0); BLOOD UREA NITROGEN 25 MG/DL (7-18); BUN/CREATININE RATIO 33.3 (6.6-38.0); C-REACTIVE PROTEIN 5.12 MG/DL (0.0-0.5); CALCIUM 7.1 MG/DL (8.5-10.1); CHLORIDE 106 MMOL/L (99-107); CREATININE 0.75 MG/DL (0.40-0.90); MAGNESIUM 2.3 MG/DL (1.5-2.4); PHOSPHORUS 3.4 MG/DL (2.3-4.5); SODIUM 143 MMOL/L (135-145); TOTAL CARBON DIOXIDE 29.4 MMOL/L (24-32); TOTAL PROTEIN 5.7 G/DL (6.4-8.2); TRIGLYCERIDES 859 MG/DL (20-135); eGFR 74 ML/MIN
[2021-07-02] MEDS: ipratropium/albuterol 3ml nebule NEB SCH ×7 (03:29→23:19)
[2021-07-02 04:03] LABS: GLUCOSE 162 MG/DL (70-104)
[2021-07-02 04:04] LABS: ALANINE AMINOTRANSFERASE 57 U/L (12-78); ASPARTATE AMINO TRANSFERASE 47 U/L (10-37); BANDS% (MANUAL) 3 % (0-10); LACTATE DEHYDROGENASE 460 U/L (81-234); NEUTROPHILS % (MANUAL) 92 % (42-75); POTASSIUM 3.2 MMOL/L (3.5-5.1); TOTAL CELLS COUNTED 100
[2021-07-02 04:05] LABS: LYMPHOCYTES % (MANUAL) 4 % (21-51); MONOCYTES % (MANUAL) 1 % (2-12); PLATELET ESTIMATE NORMAL
[2021-07-02 04:26] LABS: ABG BASE EXCESS 5.7 mmol/L (-2.0-2.0); ABG HCO3 30.3 mmol/L (22.0-26.0); ABG OXYGEN SATURATION 95.6 % (94-97); ABG PCO2 (T) 42.3 mmHg (32.0-45.0); ABG PO2 (T) 79.8 mmHg (75.0-100.0); ALLEN'S TEST POSITIVE; FCOHb 0.3 % (0.0-3.9); FMetHb 0.1 % (0.0-1.5); FO2Hb 95.2 % (94-97); PATIENT TEMPERATURE 36.1; PEEP 14 cm H2O; RESPIRATORY RATE 16 b/min; TOTAL HEMOGLOBIN 12.3 G/dl (12.0-16.0)
--- NOTE | 2021-07-02 06:17 | NUR ---
Problems reprioritized. Patient report given, questions answered & plan of care reviewed with JÚNIOR Grady.
--- NOTE | 2021-07-02 06:25 | NUR ---
Received report from JÚNIOR Lopes
[2021-07-02] MEDS: K and/or MAG REPLACEMENT MC SCH ×2 (08:00→20:00)
[2021-07-02] MEDS: dexamethasone inj 10 MG in normal saline 50ml IV soln 50 ML IV SCH ×2 (09:58→20:32)
[2021-07-02] MEDS: enoxaparin 40mg/0.4ml syringe SUBCUT SCH ×2 (09:59→20:32)
[2021-07-02] MEDS: pantoprazole 40 MG vial IV SCH ×2 (09:59→20:31)
[2021-07-02] MEDS: metoclopramide 5 mg/ml inj IV SCH ×3 (10:00→20:31)
[2021-07-02] MEDS: docusate sodium 100mg/10ml UD cup OGT SCH ×2 (10:00→20:31)
[2021-07-02] MEDS: ROPINIRole 1mg tablet OGT SCH ×2 (10:00→20:31)
[2021-07-02] MEDS: furosemide 40mg/4ml inj IV SCH (10:00)
[2021-07-02] MEDS: aspirin 81mg tab.chew OGT SCH (10:01)
[2021-07-02] MEDS: allopurinol 100mg tablet OGT SCH ×2 (10:01→20:31)
[2021-07-02] MEDS: lactobacillus rhamnosus 10,000 MMU CELLS/CAPSULE OGT SCH ×2 (10:01→20:31)
[2021-07-02] MEDS: levoTHYROXINE 88mcg tablet OGT SCH (10:01)
--- NOTE | 2021-07-02 11:30 | NUR ---
TF was held overnight due to high residuals. While suctioning patient this morning, patient began to cough and desaturate. Patient vomited a small amount. I hooked her NG tube up to suction and immediately suctioned 680 ml of gastric contents out. Dr. Kennedy at bedside now to assess patient. New Order received from Dr. Kennedy to hold TF for 24 hours and assess again tomorrow (07/03) at 1130.
[2021-07-02] MEDS ORDERED: potassium Cl 40MEQ/250ML bag 270 ML IV PRN (11:35)
[2021-07-02] MEDS: methylnaltrexone br 12mg/0.6ml inj***SubQ only SQ SCH (11:58)
[2021-07-02] MEDS: potassium Cl 40MEQ/250ML bag 270 ML IV PRN (11:59)
[2021-07-02] MEDS: midazolam 100mg in NS 100 ML INFUSION IV PRN (11:59)
[2021-07-02] MEDS: insulin regular, human U-100 3ml vial - multi-dose SQ SCH (14:50)
--- NOTE | 2021-07-02 18:28 | NUR ---
Report given to TIANA RN
[2021-07-02] MEDS: polyethylene glycol 3350 17gm powd pack OGT SCH (20:32)
[2021-07-02] MEDS: insulin glargine (Lantus) pen - multi-dose SQ SCH (21:17)
[2021-07-03] VITALS (23 sets, daily range): BP systolic 99–161; BP diastolic 48–88
[2021-07-03] MEDS: midazolam 100mg in NS 100 ML INFUSION IV PRN ×2 (00:37→10:35)
[2021-07-03] MEDS: mineral oil/petrolatum ophthal oint EACHEYE SCH ×4 (02:00→20:29)
[2021-07-03] MEDS: insulin Lispro (HumaLOG) vial - multi-dose SQ SCH ×2 (02:38→14:13)
[2021-07-03] MEDS: DEXMEDETOMIDINE 400mcg/4ml inj 400 MCG in normal saline 100ml IV soln 96 ML IV SCH ×3 (03:18→11:04)
[2021-07-03] MEDS: ipratropium/albuterol 3ml nebule NEB SCH ×6 (03:39→23:13)
[2021-07-03 03:58] LABS: ABG BASE EXCESS 4.5 mmol/L (-2.0-2.0); ABG HCO3 28.7 mmol/L (22.0-26.0); ABG OXYGEN SATURATION 93.4 % (94-97); ABG PCO2 (T) 40.4 mmHg (32.0-45.0); ABG PO2 (T) 67.5 mmHg (75.0-100.0); ALLEN'S TEST POSITIVE; FCOHb 0.3 % (0.0-3.9); FMetHb 0.1 % (0.0-1.5); PATIENT TEMPERATURE 36.5; PEEP 14 cm H2O; RESPIRATORY RATE 16 b/min; TOTAL HEMOGLOBIN 12.1 G/dl (12.0-16.0)
[2021-07-03 04:00] LABS: BASOPHILS # (AUTO) 0.1 X10'3 (0-0.2); EOSINOPHILS % (AUTO) 0.3 % (0-6); LYMPHOCYTES # (AUTO) 0.2 X10'3 (1.1-4.8); PLATELET COUNT 136 X10'3 (140-440)
[2021-07-03 04:02] LABS: BASOPHILS % (AUTO) 0.8 % (0-1); HEMATOCRIT 34.7 % (35.0-45.0); HEMOGLOBIN 11.5 g/dl (12.0-16.0); MEAN CORPUSCULAR HEMOGLOBIN 30.8 PG (27.0-31.0); MEAN CORPUSCULAR HGB CONC 33.1 g/dL (33.0-36.5); MONOCYTES # (AUTO) 0.1 X10'3 (0-0.9); MONOCYTES % (AUTO) 0.7 % (2-12); NEUTROPHILS # (AUTO) 8.5 X10'3 (1.8-7.7); NEUTROPHILS % (AUTO) 96.2 % (42-75); RED BLOOD COUNT 3.73 X10'6 (4.20-5.60); RED CELL DISTRIBUTION WIDTH 14.7 % (11.5-14.5); WHITE BLOOD COUNT 8.8 X10'3 (4.5-11.0)
[2021-07-03 04:19] LABS: D-DIMER 8.22 MG/L FEU (0-0.50); PARTIAL THROMBOPLASTIN TIME 25 SECONDS (22-32)
[2021-07-03 04:21] LABS: ALANINE AMINOTRANSFERASE 57 U/L (12-78); ALBUMIN 2.2 G/DL (3.4-5.0); ALBUMIN/GLOBULIN RATIO 0.6 (1.1-1.5); ALKALINE PHOSPHATASE 115 IU/L (46-116); ANION GAP 6 (8-16); ASPARTATE AMINO TRANSFERASE 38 U/L (10-37); BILIRUBIN,TOTAL 0.5 MG/DL (0.1-1.0); BLOOD UREA NITROGEN 25 MG/DL (7-18); BUN/CREATININE RATIO 31.3 (6.6-38.0); C-REACTIVE PROTEIN 8.26 MG/DL (0.0-0.5); CALCIUM 8.3 MG/DL (8.5-10.1); CHLORIDE 110 MMOL/L (99-107); GLUCOSE 155 MG/DL (70-104); LACTATE DEHYDROGENASE 566 U/L (81-234); MAGNESIUM 2.4 MG/DL (1.5-2.4); PHOSPHORUS 4.4 MG/DL (2.3-4.5); POTASSIUM 3.8 MMOL/L (3.5-5.1); PREALBUMIN 22.2 MG/DL (19-36); SODIUM 148 MMOL/L (135-145); TOTAL CARBON DIOXIDE 32.5 MMOL/L (24-32); eGFR 69 ML/MIN
[2021-07-03] MEDS: FENTANYL-0.9 % NACL/PF 100 ML IV PRN ×2 (05:12→10:34)
--- NOTE | 2021-07-03 06:30 | NUR ---
Received report from Gal RN
[2021-07-03] MEDS: dexamethasone inj 10 MG in normal saline 50ml IV soln 50 ML IV SCH ×2 (07:46→20:35)
[2021-07-03] MEDS: metoclopramide 5 mg/ml inj IV SCH ×3 (07:47→20:37)
[2021-07-03] MEDS: pantoprazole 40 MG vial IV SCH ×2 (07:47→20:35)
[2021-07-03] MEDS: furosemide 40mg/4ml inj IV SCH ×4 (07:47→19:08)
[2021-07-03] MEDS: docusate sodium 100mg/10ml UD cup OGT SCH ×2 (07:47→20:37)
[2021-07-03] MEDS: ROPINIRole 1mg tablet OGT SCH ×2 (07:48→20:35)
[2021-07-03] MEDS: allopurinol 100mg tablet OGT SCH ×2 (07:48→20:35)
[2021-07-03] MEDS: aspirin 81mg tab.chew OGT SCH (07:48)
[2021-07-03] MEDS: levoTHYROXINE 88mcg tablet OGT SCH (07:48)
[2021-07-03] MEDS: lactobacillus rhamnosus 10,000 MMU CELLS/CAPSULE OGT SCH ×2 (07:49→20:35)
[2021-07-03] MEDS: enoxaparin 40mg/0.4ml syringe SUBCUT SCH (07:53)
[2021-07-03] MEDS: K and/or MAG REPLACEMENT MC SCH ×2 (07:53→20:00)
--- NOTE | 2021-07-03 11:29 | NUR ---
Reassessment: Pt remains intubated. TF held at this time and OG tube changed to suction d/t pt continually with high gastric residuals. LBM 07/02 though documented to only be having small BMs. Relistor changed from PRN to routine as pt was not receiving while it was PRN. Pt continues receiving routine Reglan, Colace, and Miralax with additional PRN bowel care available. Will continue to follow closely. Rec: 1. Once okay by MD, resume continuous TF via OG tube using Vital High Protein at 20 mL/hr and advance by 20 mL Q8H as tolerated to goal rate of 65 mL/hr; to provide 1560 mL total volume/day, 1560 kcal, 1310 mL water, and 137 g protein. 2. Additional 150 mL water flush Q4H per stonemason; monitor serum Na 3. PALB q /; daily scaled wts 4. Routine bowel care, opioid antagonist, and prokinetic agent; at least 10 days constipation Addendum: 07/03/21 at [address] Amended: Links added.
[2021-07-03] MEDS: spironolactone 50 MG tablet PO SCH ×2 (13:00→20:37)
[2021-07-03] MEDS: WATER IV SCH ×4 (16:24→23:16)
[2021-07-03] MEDS: DEXTROSE 5% IV SCH ×4 (16:24→23:16)
[2021-07-03] MEDS: DEXMEDETOMIDINE IV SCH ×4 (16:24→23:16)
[2021-07-03] MEDS: FENTANYL EPI PRN ×2 (16:52→20:34)
[2021-07-03] MEDS: WATER EPI PRN ×2 (16:52→20:34)
[2021-07-03] MEDS: DEXTROSE 5% EPI PRN ×2 (16:52→20:34)
[2021-07-03] MEDS: potassium Cl 40MEQ/250ML bag 270 ML IV PRN (17:26)
[2021-07-03] MEDS: MIDAZolam inj 100 MG in dextrose 5%-water 80 ML IV PRN (17:35)
[2021-07-03] MEDS: polyethylene glycol 3350 17gm powd pack OGT SCH (20:35)
[2021-07-03] MEDS: enoxaparin 60mg/0.6ml syringe SUBCUT SCH (20:36)
[2021-07-03] MEDS: enoxaparin 30mg/0.3ml syringe SUBCUT SCH (20:36)
[2021-07-03] MEDS: insulin regular, human U-100 3ml vial - multi-dose SQ SCH (21:08)
[2021-07-03] MEDS: insulin glargine (Lantus) pen - multi-dose SQ SCH (21:09)
[2021-07-04] VITALS (24 sets, daily range): BP systolic 86–160; BP diastolic 46–94
[2021-07-04] MEDS: MIDAZolam inj 100 MG in dextrose 5%-water 80 ML IV PRN ×3 (01:46→21:20)
[2021-07-04] MEDS: DEXTROSE 5% EPI PRN ×4 (01:47→19:00)
[2021-07-04] MEDS: FENTANYL EPI PRN ×4 (01:47→19:00)
[2021-07-04] MEDS: WATER EPI PRN ×4 (01:47→19:00)
[2021-07-04] MEDS: mineral oil/petrolatum ophthal oint EACHEYE SCH ×4 (02:21→21:01)
[2021-07-04] MEDS: ipratropium/albuterol 3ml nebule NEB SCH ×6 (02:55→23:07)
[2021-07-04 03:11] LABS: ABG BASE EXCESS 7.8 mmol/L (-2.0-2.0); ABG OXYGEN SATURATION 97.7 % (94-97); ABG PCO2 (T) 42.9 mmHg (32.0-45.0); ABG PO2 (T) 107.6 mmHg (75.0-100.0); ALLEN'S TEST POSITIVE; FCOHb 0.3 % (0.0-3.9); FMetHb 0.2 % (0.0-1.5); FO2Hb 97.2 % (94-97); PATIENT TEMPERATURE 36.7; PEEP 14 cm H2O; RESPIRATORY RATE 16 b/min; TOTAL HEMOGLOBIN 12.5 G/dl (12.0-16.0)
[2021-07-04] MEDS: DEXMEDETOMIDINE IV SCH ×7 (03:12→21:57)
[2021-07-04] MEDS: DEXTROSE 5% IV SCH ×7 (03:12→21:57)
[2021-07-04] MEDS: WATER IV SCH ×7 (03:12→21:57)
[2021-07-04 03:23] LABS: BASOPHILS % (AUTO) 0 % (0-1); EOSINOPHILS % (AUTO) 0.2 % (0-6); HEMATOCRIT 35.9 % (35.0-45.0); HEMOGLOBIN 11.9 g/dl (12.0-16.0); LYMPHOCYTES # (AUTO) 0.2 X10'3 (1.1-4.8); LYMPHOCYTES % (AUTO) 2.1 % (21-51); MEAN CORPUSCULAR HEMOGLOBIN 30.6 PG (27.0-31.0); MEAN CORPUSCULAR VOLUME 92.6 FL (78-98); MEAN PLATELET VOLUME 8.7 FL (7.4-10.4); MONOCYTES # (AUTO) 0.1 X10'3 (0-0.9); MONOCYTES % (AUTO) 0.9 % (2-12); NEUTROPHILS # (AUTO) 9.2 X10'3 (1.8-7.7); NEUTROPHILS % (AUTO) 96.8 % (42-75); PLATELET COUNT 137 X10'3 (140-440); RED BLOOD COUNT 3.88 X10'6 (4.20-5.60); RED CELL DISTRIBUTION WIDTH 15.2 % (11.5-14.5); WHITE BLOOD COUNT 9.5 X10'3 (4.5-11.0)
[2021-07-04] MEDS: insulin regular, human U-100 3ml vial - multi-dose SQ SCH ×4 (03:28→20:27)
[2021-07-04 03:40] LABS: PARTIAL THROMBOPLASTIN TIME 27 SECONDS (22-32)
[2021-07-04 03:42] LABS: ALANINE AMINOTRANSFERASE 65 U/L (12-78); ALBUMIN 2.2 G/DL (3.4-5.0); ALBUMIN/GLOBULIN RATIO 0.5 (1.1-1.5); ALKALINE PHOSPHATASE 99 IU/L (46-116); ANION GAP 7 (8-16); ASPARTATE AMINO TRANSFERASE 35 U/L (10-37); BILIRUBIN,TOTAL 0.4 MG/DL (0.1-1.0); BLOOD UREA NITROGEN 36 MG/DL (7-18); BUN/CREATININE RATIO 37.9 (6.6-38.0); C-REACTIVE PROTEIN 9.08 MG/DL (0.0-0.5); CALCIUM 8.4 MG/DL (8.5-10.1); CHLORIDE 107 MMOL/L (99-107); CREATININE 0.95 MG/DL (0.40-0.90); GLUCOSE 180 MG/DL (70-104); LACTATE DEHYDROGENASE 432 U/L (81-234); MAGNESIUM 2.3 MG/DL (1.5-2.4); PHOSPHORUS 3.7 MG/DL (2.3-4.5); POTASSIUM 3.6 MMOL/L (3.5-5.1); SODIUM 147 MMOL/L (135-145); TOTAL CARBON DIOXIDE 33.2 MMOL/L (24-32); TOTAL PROTEIN 6.5 G/DL (6.4-8.2); eGFR 56 ML/MIN
--- NOTE | 2021-07-04 06:44 | NUR ---
Patient in room [facility] 2009. I have received report from Katie "Edmond Montelongo RN and had the opportunity to ask questions and assume patient care. Addendum: 07/04/21 at 0644 by Casandra Lemos RN Amended: Links added.
[2021-07-04] MEDS: docusate sodium 100mg/10ml UD cup OGT SCH ×2 (07:20→21:00)
[2021-07-04] MEDS: levoTHYROXINE 88mcg tablet OGT SCH (07:20)
[2021-07-04] MEDS: lactobacillus rhamnosus 10,000 MMU CELLS/CAPSULE OGT SCH ×2 (07:21→21:01)
[2021-07-04] MEDS: ROPINIRole 1mg tablet OGT SCH ×2 (07:21→21:01)
[2021-07-04] MEDS: aspirin 81mg tab.chew OGT SCH (07:21)
[2021-07-04] MEDS: allopurinol 100mg tablet OGT SCH ×2 (07:22→21:01)
[2021-07-04] MEDS: spironolactone 50 MG tablet PO SCH ×3 (07:22→21:01)
[2021-07-04] MEDS: pantoprazole 40 MG vial IV SCH ×2 (07:23→21:00)
[2021-07-04] MEDS: metoclopramide 5 mg/ml inj IV SCH ×3 (07:23→21:00)
[2021-07-04] MEDS: enoxaparin 60mg/0.6ml syringe SUBCUT SCH ×2 (07:24→20:59)
[2021-07-04] MEDS: enoxaparin 30mg/0.3ml syringe SUBCUT SCH ×2 (07:24→21:00)
[2021-07-04] MEDS: methylnaltrexone br 12mg/0.6ml inj***SubQ only SQ SCH (07:24)
[2021-07-04] MEDS: dexamethasone inj 10 MG in normal saline 50ml IV soln 50 ML IV SCH ×2 (07:25→20:59)
[2021-07-04] MEDS: K and/or MAG REPLACEMENT MC SCH ×2 (07:51→19:01)
[2021-07-04] MEDS: furosemide 40mg/4ml inj IV SCH ×3 (09:07→21:00)
--- NOTE | 2021-07-04 10:59 | NUR ---
Bed stopped and broken down for full skin assessment of patient. Dr. Kennedy stated he would perform a tube exchange since he heard pt. had a cuff leak. Both RN and RT determined pt. does not have a cuff leak. Exchange not warranted. Dr. Kennedy stated to keep pt. on current [facility] for now.
--- NOTE | 2021-07-04 11:13 | NUR ---
Dr. Tim here to see pt.
--- NOTE | 2021-07-04 17:37 | NUR ---
Bloo cultures and sputum culture obtained today Addendum: 07/04/21 at 1738 by Casandra Lemos RN blood
--- NOTE | 2021-07-04 17:38 | NUR ---
Patient's son called for update.
--- NOTE | 2021-07-04 18:03 | NUR ---
Problems reprioritized. Patient report given, questions answered & plan of care reviewed with Katie Montelongo RN (Mac).
[2021-07-04] MEDS: insulin glargine (Lantus) pen - multi-dose SQ SCH (20:29)
[2021-07-04] MEDS: polyethylene glycol 3350 17gm powd pack OGT SCH (20:59)
[2021-07-04] MEDS: potassium Cl 40MEQ/250ML bag 270 ML IV PRN (23:06)
[2021-07-05] VITALS (24 sets, daily range): BP systolic 85–152; BP diastolic 39–93
[2021-07-05] MEDS: FENTANYL EPI PRN ×4 (00:13→23:05)
[2021-07-05] MEDS: DEXTROSE 5% EPI PRN ×4 (00:13→23:05)
[2021-07-05] MEDS: WATER EPI PRN ×4 (00:13→23:05)
[2021-07-05] MEDS: DEXTROSE 5% IV SCH ×7 (00:15→23:06)
[2021-07-05] MEDS: WATER IV SCH ×7 (00:15→23:06)
[2021-07-05] MEDS: DEXMEDETOMIDINE IV SCH ×7 (00:15→23:06)
[2021-07-05] MEDS: mineral oil/petrolatum ophthal oint EACHEYE SCH ×4 (02:00→19:34)
[2021-07-05] MEDS: insulin regular, human U-100 3ml vial - multi-dose SQ SCH ×3 (02:50→21:07)
[2021-07-05] MEDS: ipratropium/albuterol 3ml nebule NEB SCH ×6 (03:14→22:50)
[2021-07-05 03:27] LABS: HEMATOCRIT 36.6 % (35.0-45.0); HEMOGLOBIN 11.8 g/dl (12.0-16.0); MEAN CORPUSCULAR HEMOGLOBIN 30.2 PG (27.0-31.0); MEAN CORPUSCULAR HGB CONC 32.4 g/dL (33.0-36.5); MEAN CORPUSCULAR VOLUME 93.3 FL (78-98); MEAN PLATELET VOLUME 9.3 FL (7.4-10.4); PLATELET COUNT 125 X10'3 (140-440); RED BLOOD COUNT 3.92 X10'6 (4.20-5.60); RED CELL DISTRIBUTION WIDTH 15.1 % (11.5-14.5)
[2021-07-05 03:31] LABS: ABG BASE EXCESS 7.4 mmol/L (-2.0-2.0); ABG HCO3 31.1 mmol/L (22.0-26.0); ABG OXYGEN SATURATION 96.5 % (94-97); ABG PCO2 (T) 39.3 mmHg (32.0-45.0); ABG PO2 (T) 87.9 mmHg (75.0-100.0); ALLEN'S TEST POSITIVE; FCOHb 0.3 % (0.0-3.9); FMetHb 0.1 % (0.0-1.5); FO2Hb 96.1 % (94-97); PATIENT TEMPERATURE 36.3; PEEP 14 cm H2O; RESPIRATORY RATE 18 b/min; TOTAL HEMOGLOBIN 12.8 G/dl (12.0-16.0)
[2021-07-05 03:48] LABS: D-DIMER 6.51 MG/L FEU (0-0.50); PARTIAL THROMBOPLASTIN TIME 29 SECONDS (22-32)
[2021-07-05 03:50] LABS: ALANINE AMINOTRANSFERASE 54 U/L (12-78); ALBUMIN 2.3 G/DL (3.4-5.0); ALBUMIN/GLOBULIN RATIO 0.5 (1.1-1.5); ALKALINE PHOSPHATASE 93 IU/L (46-116); ANION GAP 9 (8-16); ASPARTATE AMINO TRANSFERASE 31 U/L (10-37); BILIRUBIN,TOTAL 0.5 MG/DL (0.1-1.0); BLOOD UREA NITROGEN 40 MG/DL (7-18); C-REACTIVE PROTEIN 5.78 MG/DL (0.0-0.5); CALCIUM 8.6 MG/DL (8.5-10.1); CHLORIDE 103 MMOL/L (99-107); CREATININE 0.93 MG/DL (0.40-0.90); GLUCOSE 173 MG/DL (70-104); LACTATE DEHYDROGENASE 404 U/L (81-234); MAGNESIUM 2.2 MG/DL (1.5-2.4); PHOSPHORUS 4.2 MG/DL (2.3-4.5); SODIUM 143 MMOL/L (135-145); TOTAL CARBON DIOXIDE 30.9 MMOL/L (24-32); TOTAL PROTEIN 6.5 G/DL (6.4-8.2); eGFR 58 ML/MIN
[2021-07-05 04:18] LABS: TOTAL CELLS COUNTED 100
[2021-07-05 04:19] LABS: PLATELET ESTIMATE DECREASED
--- NOTE | 2021-07-05 06:30 | NUR ---
Patient in room CICU 2008. I have received report from Katie CALLEJAS and had the opportunity to ask questions and assume patient care.
[2021-07-05] MEDS: enoxaparin 60mg/0.6ml syringe SUBCUT SCH ×2 (07:58→19:33)
[2021-07-05] MEDS: enoxaparin 30mg/0.3ml syringe SUBCUT SCH ×2 (07:59→19:33)
[2021-07-05] MEDS: metoclopramide 5 mg/ml inj IV SCH ×3 (07:59→19:32)
[2021-07-05] MEDS: furosemide 40mg/4ml inj IV SCH ×3 (07:59→19:32)
[2021-07-05] MEDS: docusate sodium 100mg/10ml UD cup OGT SCH ×2 (07:59→19:32)
[2021-07-05] MEDS: pantoprazole 40 MG vial IV SCH ×2 (07:59→19:32)
[2021-07-05] MEDS: lactobacillus rhamnosus 10,000 MMU CELLS/CAPSULE OGT SCH ×2 (08:00→19:31)
[2021-07-05] MEDS: K and/or MAG REPLACEMENT MC SCH ×2 (08:00→18:36)
[2021-07-05] MEDS: levoTHYROXINE 88mcg tablet OGT SCH (08:00)
[2021-07-05] MEDS: spironolactone 50 MG tablet PO SCH ×3 (08:00→19:32)
[2021-07-05] MEDS: allopurinol 100mg tablet OGT SCH ×2 (08:00→19:31)
[2021-07-05] MEDS: aspirin 81mg tab.chew OGT SCH (08:00)
[2021-07-05] MEDS: ROPINIRole 1mg tablet OGT SCH ×2 (08:00→19:31)
[2021-07-05] MEDS ORDERED: glycerin ADULT rectal suppository RC PRN (08:05)
[2021-07-05] MEDS: dexamethasone inj 10 MG in normal saline 50ml IV soln 50 ML IV SCH ×2 (08:46→19:34)
[2021-07-05] MEDS: MIDAZolam inj 100 MG in dextrose 5%-water 80 ML IV PRN ×2 (09:03→16:49)
[2021-07-05] MEDS ORDERED: FENTANYL-0.9 % NACL/PF 100 ML IV PRN (10:25)
[2021-07-05] MEDS ORDERED: cefazolin/dext.iso 2gm/100ml 100 ML IV SCH (17:10)
--- NOTE | 2021-07-05 17:51 | NUR ---
Pt opens eyes to stimuli. No movement noted of extremities. Strong cough. Sputum thick, lal with bloody specks. Able to wean FiO2 to 75%. Continues on Rotorest with 62 degree lateral rotation. Hemodynamically stable. Good UO in response to Lasix. TF residuals remain elevated. Still no BM. Dulcolax supp given.
--- NOTE | 2021-07-05 17:53 | NUR ---
Dr. Correa notified of gram negative rods in sputum. New order for Cefepime received.
--- NOTE | 2021-07-05 18:22 | NUR ---
Problems reprioritized. Patient report given, questions answered & plan of care reviewed with Seymour CALLEJAS.
[2021-07-05] MEDS: polyethylene glycol 3350 17gm powd pack OGT SCH (19:32)
[2021-07-05] MEDS: cefepime 2g/NS 100ml ADVANTAGE 100 ML IV SCH (19:34)
[2021-07-05] MEDS: insulin glargine (Lantus) pen - multi-dose SQ SCH (21:06)
[2021-07-05] MEDS: potassium Cl 40MEQ/250ML bag 270 ML IV PRN (21:24)
[2021-07-06] VITALS (24 sets, daily range): BP systolic 88–138; BP diastolic 47–89
[2021-07-06] MEDS: mineral oil/petrolatum ophthal oint EACHEYE SCH ×4 (01:27→19:46)
[2021-07-06] MEDS: WATER IV SCH ×5 (03:00→16:41)
[2021-07-06] MEDS: DEXTROSE 5% IV SCH ×5 (03:00→16:41)
[2021-07-06] MEDS: DEXMEDETOMIDINE IV SCH ×5 (03:00→16:41)
[2021-07-06] MEDS: insulin regular, human U-100 3ml vial - multi-dose SQ SCH ×3 (03:14→13:44)
[2021-07-06] MEDS: ipratropium/albuterol 3ml nebule NEB SCH ×6 (03:16→22:53)
[2021-07-06 03:31] LABS: ABG BASE EXCESS 4.9 mmol/L (-2.0-2.0); ABG HCO3 28.7 mmol/L (22.0-26.0); ABG PCO2 (T) 37.9 mmHg (32.0-45.0); ABG PO2 (T) 79.2 mmHg (75.0-100.0); ALLEN'S TEST POSITIVE; FCOHb 0.2 % (0.0-3.9); FMetHb 0.3 % (0.0-1.5); FO2Hb 95.5 % (94-97); PATIENT TEMPERATURE 36.2; PEEP 14 cm H2O; RESPIRATORY RATE 16 b/min; TOTAL HEMOGLOBIN 12.5 G/dl (12.0-16.0)
[2021-07-06 03:47] LABS: BASOPHILS % (AUTO) 0.1 % (0-1); EOSINOPHILS % (AUTO) 0 % (0-6); HEMATOCRIT 35.6 % (35.0-45.0); HEMOGLOBIN 11.5 g/dl (12.0-16.0); LYMPHOCYTES # (AUTO) 0.3 X10'3 (1.1-4.8); LYMPHOCYTES % (AUTO) 2.9 % (21-51); MEAN CORPUSCULAR HEMOGLOBIN 30.3 PG (27.0-31.0); MEAN CORPUSCULAR HGB CONC 32.3 g/dL (33.0-36.5); MEAN CORPUSCULAR VOLUME 93.9 FL (78-98); MEAN PLATELET VOLUME 9.6 FL (7.4-10.4); MONOCYTES # (AUTO) 0.1 X10'3 (0-0.9); MONOCYTES % (AUTO) 1.2 % (2-12); NEUTROPHILS # (AUTO) 10.7 X10'3 (1.8-7.7); NEUTROPHILS % (AUTO) 95.8 % (42-75); PLATELET COUNT 120 X10'3 (140-440); RED CELL DISTRIBUTION WIDTH 15.4 % (11.5-14.5); WHITE BLOOD COUNT 11.2 X10'3 (4.5-11.0)
[2021-07-06] MEDS: MIDAZolam inj 100 MG in dextrose 5%-water 80 ML IV PRN ×2 (04:02→14:27)
[2021-07-06] MEDS: FENTANYL EPI PRN ×3 (04:02→14:27)
[2021-07-06] MEDS: WATER EPI PRN ×3 (04:02→14:27)
[2021-07-06] MEDS: DEXTROSE 5% EPI PRN ×3 (04:02→14:27)
[2021-07-06] MEDS ORDERED: mineral oil 133ml enema RC PRN (04:20)
[2021-07-06 04:27] LABS: PARTIAL THROMBOPLASTIN TIME 29 SECONDS (22-32)
[2021-07-06 04:47] LABS: ALANINE AMINOTRANSFERASE 49 U/L (12-78); ALBUMIN 2.4 G/DL (3.4-5.0); ALBUMIN/GLOBULIN RATIO 0.6 (1.1-1.5); ALKALINE PHOSPHATASE 87 IU/L (46-116); ANION GAP 8 (8-16); ASPARTATE AMINO TRANSFERASE 26 U/L (10-37); BILIRUBIN,TOTAL 0.4 MG/DL (0.1-1.0); BLOOD UREA NITROGEN 44 MG/DL (7-18); BUN/CREATININE RATIO 45.8 (6.6-38.0); CALCIUM 8.7 MG/DL (8.5-10.1); CHLORIDE 103 MMOL/L (99-107); CREATININE 0.96 MG/DL (0.40-0.90); GLUCOSE 173 MG/DL (70-104); LACTATE DEHYDROGENASE 402 U/L (81-234); MAGNESIUM 2.4 MG/DL (1.5-2.4); PHOSPHORUS 4.4 MG/DL (2.3-4.5); POTASSIUM 4.3 MMOL/L (3.5-5.1); SODIUM 143 MMOL/L (135-145); TOTAL CARBON DIOXIDE 32.2 MMOL/L (24-32); TOTAL PROTEIN 6.6 G/DL (6.4-8.2); eGFR 56 ML/MIN
--- NOTE | 2021-07-06 06:29 | NUR ---
Patient [facility] 2008. I have received report from Seymour CALLEJAS and had the opportunity to ask questions and assume patient care. Addendum: 07/06/21 at 0629 by Casandra Lemos RN Amended: Links added.
--- NOTE | 2021-07-06 07:14 | NUR ---
Dr. Kennedy called and stated to order a Rotoprone bed for pt.
[2021-07-06] MEDS: spironolactone 50 MG tablet PO SCH ×3 (07:30→19:45)
[2021-07-06] MEDS: allopurinol 100mg tablet OGT SCH ×2 (07:30→19:44)
[2021-07-06] MEDS: methylnaltrexone br 12mg/0.6ml inj***SubQ only SQ SCH (07:30)
[2021-07-06] MEDS: aspirin 81mg tab.chew OGT SCH (07:30)
[2021-07-06] MEDS: levoTHYROXINE 88mcg tablet OGT SCH (07:30)
[2021-07-06] MEDS: ROPINIRole 1mg tablet OGT SCH ×2 (07:30→19:45)
[2021-07-06] MEDS: lactobacillus rhamnosus 10,000 MMU CELLS/CAPSULE OGT SCH ×2 (07:30→19:43)
[2021-07-06] MEDS: docusate sodium 100mg/10ml UD cup OGT SCH ×2 (07:30→19:43)
[2021-07-06] MEDS: metoclopramide 5 mg/ml inj IV SCH ×3 (07:31→19:43)
[2021-07-06] MEDS: pantoprazole 40 MG vial IV SCH ×2 (07:31→19:42)
[2021-07-06] MEDS: dexamethasone inj 10 MG in normal saline 50ml IV soln 50 ML IV SCH ×2 (07:32→19:46)
[2021-07-06] MEDS: cefepime 2g/NS 100ml ADVANTAGE 100 ML IV SCH ×2 (07:50→19:46)
[2021-07-06] MEDS: K and/or MAG REPLACEMENT MC SCH ×2 (08:00→19:47)
--- NOTE | 2021-07-06 08:08 | NUR ---
Warm blankets placed on pt. temp turned up in room as pt. has been hypothermic for a few hours.
--- NOTE | 2021-07-06 08:09 | NUR ---
Pt. bleeding from mouth. Coags drawn STAT, Lovenox held. Will notify Dr. Kennedy.
[2021-07-06 08:39] LABS: PARTIAL THROMBOPLASTIN TIME 32 SECONDS (22-32)
--- NOTE | 2021-07-06 08:44 | NUR ---
Wasted 0cc current Fentanyl bag. No waste documentation paper attached to bag. [place] in pharmacy notified. Verified with Kelsi Benavides RN.
[2021-07-06] MEDS: furosemide 40mg/4ml inj IV SCH ×3 (09:28→19:42)
--- NOTE | 2021-07-06 09:32 | NUR ---
Soap suds enema administered since Fleets are unavailable. No stool noted upon administration. Awaiting Rtoprone bed.
--- NOTE | 2021-07-06 10:36 | NUR ---
DHEERAJ called with ETA of 2-3 hours for bed.
--- NOTE | 2021-07-06 11:09 | NUR ---
Reassessment: Pt remains intubated on rotorest bed. Pt continues to have elevated GRV, noted at 720ml last night 07/05, though GRV down to 90ml today. TF has been running at 10ml/hr since 07/04. Pt noted to have been bleeding from the mouth this morning. LBM 07/02 though documented to not have had any recent BM. Pt continues receiving routine Reglan, Colace, and Miralax with additional PRN enemas and bowel care available. Will continue to follow closely. Rec: 1. Continue to advance TF Vital High Protein by 20 mL Q8H as tolerated to goal rate of 65 mL/hr; to provide 1560 mL total volume/day, 1560 kcal, 1310 mL water, and 137 g protein. 2. Additional 150 mL water flush Q4H per behavioral modification assistant; monitor serum Na 3. PALB q /; daily scaled wts 4. Routine bowel care, opioid antagonist, and prokinetic agent; at least 10 days constipation Addendum: 07/06/21 at [address] Amended: Links added.
--- NOTE | 2021-07-06 12:57 | NUR ---
Rotoprone bed here. Awaiting staff to become available to assist with transferring pt. from Rotorest to Rotoprone bed.
--- NOTE | 2021-07-06 13:52 | NUR ---
ROUNDS NOTE: New Orders; Stop TF, start nocturnal TPN (8pm-8am), hold Lovenox for today and restart at new dose in am, give Miralax and lactulose, obtain KUB when pt. in between beds.
--- NOTE | 2021-07-06 14:25 | NUR ---
Philippe Ahumada, called for update. Update given.
--- NOTE | 2021-07-06 15:24 | NUR ---
Inspected pt's mouth and do not see source of blood. Bleeding has seem to have subsided. Optilock dressings X 2 removed from pt's mouth.
--- NOTE | 2021-07-06 16:24 | NUR ---
Mouth bleeding again. Optilock dressings placed in corners of mouth to absorb blood.
--- NOTE | 2021-07-06 18:09 | NUR ---
Problems reprioritized. Patient report given, questions answered & plan of care reviewed with Seymour CALLEJAS.
[2021-07-06] MEDS: DEXMEDETOMIDINE 400mcg/4ml inj 400 MCG in normal saline 100ml IV soln 96 ML IV SCH (18:40)
[2021-07-06] MEDS ORDERED: DEXTROSE 5% EPI ONE (18:55)
[2021-07-06] MEDS ORDERED: FENTANYL EPI ONE (18:55)
[2021-07-06] MEDS ORDERED: WATER EPI ONE (18:55)
[2021-07-06] MEDS: lactulose 20gm/30ml cup PO SCH (19:42)
[2021-07-06] MEDS: polyethylene glycol 3350 17gm powd pack OGT SCH (19:45)
[2021-07-06] MEDS: polyethylene glycol 3350 17gm powd pack PO SCH (19:45)
[2021-07-06] MEDS: insulin glargine (Lantus) pen - multi-dose SQ SCH (19:47)
[2021-07-07] VITALS (24 sets, daily range): BP systolic 87–138; BP diastolic 48–89
[2021-07-07] MEDS: DEXMEDETOMIDINE 400mcg/4ml inj 400 MCG in normal saline 100ml IV soln 96 ML IV SCH ×4 (00:18→13:39)
[2021-07-07] MEDS: mineral oil/petrolatum ophthal oint EACHEYE SCH ×4 (02:25→20:00)
[2021-07-07] MEDS: ipratropium/albuterol 3ml nebule NEB SCH ×6 (02:59→23:19)
[2021-07-07 03:22] LABS: ABG BASE EXCESS 2.4 mmol/L (-2.0-2.0); ABG HCO3 26.3 mmol/L (22.0-26.0); ABG OXYGEN SATURATION 96.8 % (94-97); ABG PO2 (T) 93.1 mmHg (75.0-100.0); ALLEN'S TEST Modified; FCOHb 0.2 % (0.0-3.9); FMetHb 0.3 % (0.0-1.5); FO2Hb 96.3 % (94-97); PATIENT TEMPERATURE 36.8; PEEP 14 cm H2O; RESPIRATORY RATE 16 b/min
[2021-07-07 03:31] LABS: HEMOGLOBIN 11.1 g/dl (12.0-16.0); LYMPHOCYTES # (AUTO) 0.3 X10'3 (1.1-4.8); MONOCYTES # (AUTO) 0.1 X10'3 (0-0.9); NEUTROPHILS # (AUTO) 12.5 X10'3 (1.8-7.7); WHITE BLOOD COUNT 12.9 X10'3 (4.5-11.0)
[2021-07-07 03:35] LABS: BASOPHILS % (AUTO) 0 % (0-1); EOSINOPHILS % (AUTO) 0.3 % (0-6); HEMATOCRIT 33.9 % (35.0-45.0); LYMPHOCYTES % (AUTO) 2.3 % (21-51); MEAN CORPUSCULAR HEMOGLOBIN 30.6 PG (27.0-31.0); MEAN CORPUSCULAR HGB CONC 32.7 g/dL (33.0-36.5); MEAN CORPUSCULAR VOLUME 93.6 FL (78-98); MEAN PLATELET VOLUME 9.8 FL (7.4-10.4); MONOCYTES % (AUTO) 0.7 % (2-12); NEUTROPHILS % (AUTO) 96.7 % (42-75); PLATELET COUNT 120 X10'3 (140-440); RED BLOOD COUNT 3.63 X10'6 (4.20-5.60); RED CELL DISTRIBUTION WIDTH 14.7 % (11.5-14.5)
[2021-07-07 03:40] LABS: PARTIAL THROMBOPLASTIN TIME 26 SECONDS (22-32)
[2021-07-07 04:09] LABS: ALANINE AMINOTRANSFERASE 62 U/L (12-78); ALBUMIN 2.3 G/DL (3.4-5.0); ALBUMIN/GLOBULIN RATIO 0.6 (1.1-1.5); ALKALINE PHOSPHATASE 78 IU/L (46-116); ANION GAP 11 (8-16); ASPARTATE AMINO TRANSFERASE 46 U/L (10-37); BILIRUBIN,TOTAL 0.5 MG/DL (0.1-1.0); BLOOD UREA NITROGEN 61 MG/DL (7-18); BUN/CREATININE RATIO 48.8 (6.6-38.0); C-REACTIVE PROTEIN 1.78 MG/DL (0.0-0.5); CALCIUM 8.4 MG/DL (8.5-10.1); CHLORIDE 100 MMOL/L (99-107); CREATININE 1.25 MG/DL (0.40-0.90); GLUCOSE 173 MG/DL (70-104); LACTATE DEHYDROGENASE 367 U/L (81-234); MAGNESIUM 2.6 MG/DL (1.5-2.4); PHOSPHORUS 5.1 MG/DL (2.3-4.5); POTASSIUM 4.1 MMOL/L (3.5-5.1); SODIUM 140 MMOL/L (135-145); TOTAL CARBON DIOXIDE 29.2 MMOL/L (24-32); TOTAL PROTEIN 6.3 G/DL (6.4-8.2); eGFR 41 ML/MIN
--- NOTE | 2021-07-07 06:13 | NUR ---
Patient in room CICU 2008. I have received report from Seymour CALLEJAS and had the opportunity to ask questions and assume patient care.
--- NOTE | 2021-07-07 06:26 | NUR ---
Bed stopped and centered for daily CXR.
[2021-07-07] MEDS: FENTANYL-0.9 % NACL/PF 100 ML IV PRN ×3 (06:58→20:50)
[2021-07-07] MEDS: docusate sodium 100mg/10ml UD cup OGT SCH ×2 (07:14→20:17)
[2021-07-07] MEDS: lactulose 20gm/30ml cup PO SCH ×3 (07:14→20:17)
[2021-07-07] MEDS: pantoprazole 40 MG vial IV SCH ×2 (07:14→20:17)
[2021-07-07] MEDS: aspirin 81mg tab.chew OGT SCH (07:14)
[2021-07-07] MEDS: metoclopramide 5 mg/ml inj IV SCH ×3 (07:14→20:18)
[2021-07-07] MEDS: ROPINIRole 1mg tablet OGT SCH ×2 (07:14→20:16)
[2021-07-07] MEDS: lactobacillus rhamnosus 10,000 MMU CELLS/CAPSULE OGT SCH ×2 (07:14→20:16)
[2021-07-07] MEDS: spironolactone 50 MG tablet PO SCH ×3 (07:15→20:25)
[2021-07-07] MEDS: levoTHYROXINE 88mcg tablet OGT SCH (07:15)
[2021-07-07] MEDS: allopurinol 100mg tablet OGT SCH ×2 (07:15→20:16)
[2021-07-07] MEDS: dexamethasone inj 10 MG in normal saline 50ml IV soln 50 ML IV SCH ×2 (07:16→20:25)
[2021-07-07] MEDS: enoxaparin 40mg/0.4ml syringe SUBCUT SCH ×2 (07:16→20:17)
[2021-07-07] MEDS: K and/or MAG REPLACEMENT MC SCH ×2 (07:38→20:00)
[2021-07-07] MEDS: cefepime 2g/NS 100ml ADVANTAGE 100 ML IV SCH (07:50)
[2021-07-07 08:10] LABS: ABG BASE EXCESS 3.5 mmol/L (-2.0-2.0); ABG HCO3 27.6 mmol/L (22.0-26.0); ABG OXYGEN SATURATION 95.3 % (94-97); ABG PCO2 (T) 38.9 mmHg (32.0-45.0); ABG PO2 (T) 78.4 mmHg (75.0-100.0); ALLEN'S TEST POSITIVE; FCOHb 0.3 % (0.0-3.9); FMetHb 0.1 % (0.0-1.5); FO2Hb 94.9 % (94-97); PATIENT TEMPERATURE 36.3; PEEP 14 cm H2O; RESPIRATORY RATE 16 b/min; TIDAL VOLUME 314 mL; TOTAL HEMOGLOBIN 11.7 G/dl (12.0-16.0)
--- NOTE | 2021-07-07 08:26 | NUR ---
Staff was getting ready to place pt. on Rotoprone bed when Dr. Stoddard said to hold off on Rotoprone bed as it "won't help pt." ABG obtained per his order. Results handed to him. He was satisfied with ABG results and dc'd Rotoprone bed. assembler finger buffs aware. Stated to keep pt. supine for a while and see how she does.
[2021-07-07] MEDS: furosemide 40mg/4ml inj IV SCH ×3 (08:41→20:19)
--- NOTE | 2021-07-07 10:40 | NUR ---
Sp02 97% on 75% FI02 in the supine position.
[2021-07-07] MEDS: midazolam 100mg in NS 100ml 100 ML IV PRN ×2 (11:46→22:46)
--- NOTE | 2021-07-07 12:08 | NUR ---
TF/TPN/Ant Consults: Ant 12 w/ skin intact per EMR. Pt TF stopped yesterday w/ plans for TPN to start today for nutrition needs given frequent prior high GRV's and since proning per sole splitter at rounds. TF consult placed yesterday;error per RN w/ TPN Consult active at this time. Pt significant BM since admit 14 days receiving colace, miralax x2 HS, lactulose TID, relistor, and reglan w/ mag citrate to start today per sole splitter. Phos 5.1 this AM likely impacted by constipation. TPN recs below given pt needs on vent. Will monitor for PN tolerance and adjustment needs. Rec: 1. TPN per MD via PICC using 2:1 Clinimix E 5/20 at 79ml/hr goal w/ separate 100ml 20% intralipids to run at 8.33ml/hr for 12 hours each day. In total to provide; 1896ml volume, 95g AA, 379g DEX (3.99mg/kg/min), and 1869 total kcals. 2. TG/PALB q /; daily scaled wts 3. monitor for PN tolerance and signs of refeeding 4. Routine bowel care, opioid antagonist, and prokinetic agent; at least 14 days constipation 5. IF GI function returns and plan for EN; consider post-pyloric feeds to optimize EN tolerance Addendum: 07/07/21 at [address] Amended: Links added.
[2021-07-07] MEDS ORDERED: magnesium citrate 296ml oral solution PO ONE (13:00)
[2021-07-07] MEDS: CefTRIAXone 2gm/D5W 50ml BAG 50 ML IV SCH (13:39)
[2021-07-07] MEDS ORDERED: Dextrose 10%-water IV solution 1,000 ML IV PRN (14:00)
[2021-07-07] MEDS ORDERED: MVI, adult No.4 with vit. K 5 ML, ZINC/COPPER/MANGANESE/SELENIUM 0.5 ML, chromic chlori... IV SCH ×8 (15:00→16:00)
--- NOTE | 2021-07-07 15:23 | NUR ---
Transferred pt. from Rotorest bed to regular bed per MD order. Pt. tolerated well. Sp02 down to 88% during transfer. MD aware of pt's current VS and vent. settings.
[2021-07-07 16:48] LABS: PREALBUMIN 30.5 MG/DL (19-36)
[2021-07-07 16:52] LABS: POTASSIUM 2.9 MMOL/L (3.5-5.1)
--- NOTE | 2021-07-07 16:58 | NUR ---
Dr. Longoria notified of K+2.9
[2021-07-07] MEDS: potassium Cl 40MEQ/250ML bag 270 ML IV PRN ×2 (17:11→21:06)
--- NOTE | 2021-07-07 18:02 | NUR ---
Problems reprioritized. Patient report given, questions answered & plan of care reviewed with Narcisa CALLEJAS.
--- NOTE | 2021-07-07 18:30 | NUR ---
Patient in room [facility] 2008. I have received report from Casandra CALLEJAS and had the opportunity to ask questions and assume patient care. Addendum: 07/07/21 at 2219 by Narcisa Black RN Amended: Links added.
[2021-07-07] MEDS: fat emulsion 20% inj. 100 ML IV SCH (20:15)
[2021-07-07] MEDS: polyethylene glycol 3350 17gm powd pack OGT SCH (20:19)
[2021-07-07] MEDS: polyethylene glycol 3350 17gm powd pack PO SCH (21:00)
[2021-07-07] MEDS: insulin glargine (Lantus) pen - multi-dose SQ SCH (21:00)
[2021-07-08] VITALS (32 sets, daily range): BP systolic 76–148; BP diastolic 48–87
[2021-07-08] MEDS: mineral oil/petrolatum ophthal oint EACHEYE SCH ×4 (02:31→20:32)
[2021-07-08] MEDS: DEXMEDETOMIDINE 400mcg/4ml inj 400 MCG in normal saline 100ml IV soln 96 ML IV SCH ×3 (02:41→21:19)
[2021-07-08 02:53] LABS: BASOPHILS % (AUTO) 0.2 % (0-1); EOSINOPHILS % (AUTO) 0.1 % (0-6); HEMATOCRIT 33.2 % (35.0-45.0); HEMOGLOBIN 10.7 g/dl (12.0-16.0); LYMPHOCYTES # (AUTO) 0.2 X10'3 (1.1-4.8); LYMPHOCYTES % (AUTO) 1.1 % (21-51); MEAN CORPUSCULAR HEMOGLOBIN 30.8 PG (27.0-31.0); MEAN CORPUSCULAR HGB CONC 32.2 g/dL (33.0-36.5); MEAN CORPUSCULAR VOLUME 95.6 FL (78-98); MEAN PLATELET VOLUME 9.7 FL (7.4-10.4); MONOCYTES # (AUTO) 0.1 X10'3 (0-0.9); MONOCYTES % (AUTO) 0.5 % (2-12); NEUTROPHILS # (AUTO) 16.5 X10'3 (1.8-7.7); NEUTROPHILS % (AUTO) 98.1 % (42-75); PLATELET COUNT 126 X10'3 (140-440); RED BLOOD COUNT 3.47 X10'6 (4.20-5.60); RED CELL DISTRIBUTION WIDTH 14.8 % (11.5-14.5); WHITE BLOOD COUNT 16.8 X10'3 (4.5-11.0)
[2021-07-08] MEDS: ipratropium/albuterol 3ml nebule NEB SCH ×6 (03:18→23:00)
[2021-07-08] MEDS: insulin regular, human U-100 3ml vial - multi-dose SQ SCH ×4 (03:39→21:02)
[2021-07-08 03:45] LABS: ABG BASE EXCESS -1.8 mmol/L (-2.0-2.0); ABG HCO3 22.8 mmol/L (22.0-26.0); ABG OXYGEN SATURATION 91.3 % (94-97); ABG PO2 (T) 66.1 mmHg (75.0-100.0); ALLEN'S TEST Modified; FCOHb 0.1 % (0.0-3.9); FO2Hb 91.2 % (94-97); PEEP 13 cm H2O; RESPIRATORY RATE 16 b/min; TOTAL HEMOGLOBIN 11.7 G/dl (12.0-16.0)
[2021-07-08 04:19] LABS: BASOPHILS % (AUTO) 0.2 % (0-1); EOSINOPHILS % (AUTO) 0 % (0-6); HEMATOCRIT 34.8 % (35.0-45.0); HEMOGLOBIN 11.1 g/dl (12.0-16.0); LYMPHOCYTES # (AUTO) 0.2 X10'3 (1.1-4.8); LYMPHOCYTES % (AUTO) 1.3 % (21-51); MEAN CORPUSCULAR HEMOGLOBIN 30.1 PG (27.0-31.0); MEAN CORPUSCULAR HGB CONC 31.9 g/dL (33.0-36.5); MEAN CORPUSCULAR VOLUME 94.4 FL (78-98); MEAN PLATELET VOLUME 9.7 FL (7.4-10.4); MONOCYTES % (AUTO) 0.2 % (2-12); NEUTROPHILS # (AUTO) 15.8 X10'3 (1.8-7.7); NEUTROPHILS % (AUTO) 98.3 % (42-75); PLATELET COUNT 133 X10'3 (140-440); RED BLOOD COUNT 3.68 X10'6 (4.20-5.60); WHITE BLOOD COUNT 16.1 X10'3 (4.5-11.0)
[2021-07-08 04:32] LABS: D-DIMER 3.44 MG/L FEU (0-0.50); PARTIAL THROMBOPLASTIN TIME 24 SECONDS (22-32)
[2021-07-08 04:35] LABS: ALANINE AMINOTRANSFERASE 79 U/L (12-78); ALBUMIN 2.3 G/DL (3.4-5.0); ALBUMIN/GLOBULIN RATIO 0.6 (1.1-1.5); ALKALINE PHOSPHATASE 111 IU/L (46-116); ANION GAP 12 (8-16); ASPARTATE AMINO TRANSFERASE 48 U/L (10-37); BILIRUBIN,TOTAL 0.4 MG/DL (0.1-1.0); BLOOD UREA NITROGEN 74 MG/DL (7-18); C-REACTIVE PROTEIN 1.25 MG/DL (0.0-0.5); CALCIUM 8.6 MG/DL (8.5-10.1); CHLORIDE 108 MMOL/L (99-107); CREATININE 1.48 MG/DL (0.40-0.90); GLUCOSE 234 MG/DL (70-104); LACTATE DEHYDROGENASE 318 U/L (81-234); MAGNESIUM 3.1 MG/DL (1.5-2.4); PHOSPHORUS 4.1 MG/DL (2.3-4.5); POTASSIUM 4.9 MMOL/L (3.5-5.1); SODIUM 146 MMOL/L (135-145); TOTAL CARBON DIOXIDE 25.7 MMOL/L (24-32); TOTAL PROTEIN 6.3 G/DL (6.4-8.2); eGFR 34 ML/MIN
[2021-07-08] MEDS: FENTANYL-0.9 % NACL/PF 100 ML IV PRN ×3 (04:41→21:17)
--- NOTE | 2021-07-08 06:20 | NUR ---
Problems reprioritized. Patient report given, questions answered & plan of care reviewed with Casandra CALLEJAS.
--- NOTE | 2021-07-08 06:52 | NUR ---
Patient in room [facility] 2009. I have received report from Narcisa CALLEJAS and had the opportunity to ask questions and assume patient care. Addendum: 07/08/21 at 0652 by Casandra Lemos RN Amended: Links added.
[2021-07-08] MEDS: allopurinol 100mg tablet OGT SCH ×2 (07:11→20:14)
[2021-07-08] MEDS: methylnaltrexone br 12mg/0.6ml inj***SubQ only SQ SCH (07:11)
[2021-07-08] MEDS: ROPINIRole 1mg tablet OGT SCH ×2 (07:12→20:14)
[2021-07-08] MEDS: lactulose 20gm/30ml cup PO SCH ×3 (07:12→21:00)
[2021-07-08] MEDS: CefTRIAXone 2gm/D5W 50ml BAG 50 ML IV SCH (07:12)
[2021-07-08] MEDS: docusate sodium 100mg/10ml UD cup OGT SCH ×2 (07:12→20:00)
[2021-07-08] MEDS: enoxaparin 40mg/0.4ml syringe SUBCUT SCH ×2 (07:12→20:31)
[2021-07-08] MEDS: pantoprazole 40 MG vial IV SCH ×2 (07:12→20:29)
[2021-07-08] MEDS: metoclopramide 5 mg/ml inj IV SCH ×3 (07:12→20:29)
[2021-07-08] MEDS: levoTHYROXINE 88mcg tablet OGT SCH (07:14)
[2021-07-08] MEDS: aspirin 81mg tab.chew OGT SCH (07:14)
[2021-07-08] MEDS: spironolactone 50 MG tablet PO SCH ×3 (07:14→20:14)
[2021-07-08] MEDS: lactobacillus rhamnosus 10,000 MMU CELLS/CAPSULE OGT SCH ×2 (07:14→20:14)
[2021-07-08] MEDS: K and/or MAG REPLACEMENT MC SCH ×2 (07:21→20:00)
[2021-07-08] MEDS: dexamethasone inj 10 MG in normal saline 50ml IV soln 50 ML IV SCH ×2 (08:39→20:34)
[2021-07-08] MEDS: midazolam 100mg in NS 100ml 100 ML IV PRN ×2 (08:41→21:20)
[2021-07-08] MEDS: furosemide 40mg/4ml inj IV SCH ×3 (09:16→20:29)
--- NOTE | 2021-07-08 13:09 | NUR ---
F/u: Noted patient's electrolytes elevated following initiation of TPN. Recommend transitioning to non-electrolyte formula at this time, d/w clinical pharmacist. Pt with a BM 07/07 documented as moderate in size, Relistor discontinued per clinical pharmacist. Recommend initiating trickle tube feeds to monitor for tolerance prior to discontinuing TPN, will d/w MD. Noted patient's wt is +19.6 kg from 07/05, likely r/t bed scale change as pt no longer on Rotorest. Rec: 1. TPN per MD via PICC using 2:1 Clinimix non-E 04/10 at 79 ml/hr goal with separate 100 ml 20% intralipids to run at 8.33 ml/hr for 12 hours each day. In total to provide; 1996 ml volume, 95 g AA, 379 g DEX (3.99 mg/kg/min dext load), and 1869 total kcals. 2. TG/PALB q /; daily scaled wts 3. Routine bowel care, and prokinetic agent 4. IF GI function returns and plan for EN; consider post-pyloric feeds to optimize EN tolerance; continue TPN until pt able to tolerate EN Addendum: 07/08/21 at [address] Amended: Links added.
[2021-07-08] MEDS: MVI, adult No.4 with vit. K 5 ML, ZINC/COPPER/MANGANESE/SELENIUM 0.5 ML, chromic chlori... IV SCH ×4 (13:55)
--- NOTE | 2021-07-08 18:04 | NUR ---
Problems reprioritized. Patient report given, questions answered & plan of care reviewed with NOC RN.
--- NOTE | 2021-07-08 19:00 | NUR ---
Patient in room CICU 2008. I have received report from Casandra Waddell RN and had the opportunity to ask questions and assume patient care.
[2021-07-08] MEDS: polyethylene glycol 3350 17gm powd pack OGT SCH (20:31)
[2021-07-08] MEDS: fat emulsion 20% inj. 100 ML IV SCH (20:31)
[2021-07-08] MEDS: polyethylene glycol 3350 17gm powd pack PO SCH (21:00)
[2021-07-08] MEDS: insulin glargine (Lantus) pen - multi-dose SQ SCH (21:01)
[2021-07-09] VITALS (25 sets, daily range): BP systolic 76–155; BP diastolic 45–82
[2021-07-09] MEDS ORDERED: dextrose 50%-water 50ml dispensing syringe IV PRN (02:25)
[2021-07-09] MEDS ORDERED: Insulin Reg/NS 100units/100mL 100 ML IV SCH (02:25)
--- NOTE | 2021-07-09 02:25 | NUR ---
Patient's blood sugars remain in the 300s. Dr. Michele notified, order received to start insulin drip.
[2021-07-09] MEDS: mineral oil/petrolatum ophthal oint EACHEYE SCH ×4 (02:29→20:00)
[2021-07-09] MEDS: MVI, adult No.4 with vit. K 5 ML, ZINC/COPPER/MANGANESE/SELENIUM 0.5 ML, chromic chlori... IV SCH ×8 (02:29→14:57)
[2021-07-09 02:56] LABS: BASOPHILS % (AUTO) 0.3 % (0-1); EOSINOPHILS % (AUTO) 0 % (0-6); HEMATOCRIT 32.6 % (35.0-45.0); HEMOGLOBIN 10.6 g/dl (12.0-16.0); LYMPHOCYTES # (AUTO) 0.3 X10'3 (1.1-4.8); LYMPHOCYTES % (AUTO) 1.6 % (21-51); MEAN CORPUSCULAR HEMOGLOBIN 30.5 PG (27.0-31.0); MEAN CORPUSCULAR HGB CONC 32.5 g/dL (33.0-36.5); MEAN CORPUSCULAR VOLUME 93.7 FL (78-98); MEAN PLATELET VOLUME 9.9 FL (7.4-10.4); MONOCYTES # (AUTO) 0.2 X10'3 (0-0.9); MONOCYTES % (AUTO) 1.2 % (2-12); NEUTROPHILS # (AUTO) 16.8 X10'3 (1.8-7.7); NEUTROPHILS % (AUTO) 96.9 % (42-75); PLATELET COUNT 142 X10'3 (140-440); RED BLOOD COUNT 3.48 X10'6 (4.20-5.60); RED CELL DISTRIBUTION WIDTH 15.1 % (11.5-14.5); WHITE BLOOD COUNT 17.3 X10'3 (4.5-11.0)
[2021-07-09] MEDS: ipratropium/albuterol 3ml nebule NEB SCH ×6 (03:06→23:13)
[2021-07-09 03:11] LABS: D-DIMER 2.49 MG/L FEU (0-0.50)
[2021-07-09] MEDS: insulin Lispro (HumaLOG) vial - multi-dose SQ PRN ×4 (03:14→06:05)
[2021-07-09 03:31] LABS: ABG BASE EXCESS -1.8 mmol/L (-2.0-2.0); ABG HCO3 22.1 mmol/L (22.0-26.0); ABG OXYGEN SATURATION 95.1 % (94-97); ABG PCO2 (T) 33.9 mmHg (32.0-45.0); ABG PO2 (T) 77.7 mmHg (75.0-100.0); ALLEN'S TEST Modified; FCOHb 0.3 % (0.0-3.9); FMetHb 0.3 % (0.0-1.5); FO2Hb 94.5 % (94-97); PATIENT TEMPERATURE 37.1; PEEP 13 cm H2O; RESPIRATORY RATE 16 b/min; TOTAL HEMOGLOBIN 9.4 G/dl (12.0-16.0)
[2021-07-09 04:47] LABS: ALANINE AMINOTRANSFERASE 73 U/L (12-78); ALBUMIN 2.5 G/DL (3.4-5.0); ALBUMIN/GLOBULIN RATIO 0.7 (1.1-1.5); ALKALINE PHOSPHATASE 112 IU/L (46-116); ANION GAP 13 (8-16); ASPARTATE AMINO TRANSFERASE 30 U/L (10-37); BILIRUBIN,TOTAL 0.4 MG/DL (0.1-1.0); BLOOD UREA NITROGEN 73 MG/DL (7-18); BUN/CREATININE RATIO 55.7 (6.6-38.0); C-REACTIVE PROTEIN 0.74 MG/DL (0.0-0.5); CALCIUM 8.6 MG/DL (8.5-10.1); CHLORIDE 107 MMOL/L (99-107); CREATININE 1.31 MG/DL (0.40-0.90); GLUCOSE 392 MG/DL (70-104); LACTATE DEHYDROGENASE 332 U/L (81-234); MAGNESIUM 2.5 MG/DL (1.5-2.4); PHOSPHORUS 1.9 MG/DL (2.3-4.5); POTASSIUM 3.7 MMOL/L (3.5-5.1); SODIUM 144 MMOL/L (135-145); TOTAL CARBON DIOXIDE 23.8 MMOL/L (24-32); TOTAL PROTEIN 6.3 G/DL (6.4-8.2); eGFR 39 ML/MIN
[2021-07-09] MEDS: FENTANYL-0.9 % NACL/PF 100 ML IV PRN ×2 (05:14→17:07)
--- NOTE | 2021-07-09 06:14 | NUR ---
[place] documentation: I have reviewed and agree with all interventions, assessments performed and documented by Prabhjot CALLEJAS . [place] Medication Administration: For this medication-pass time frame, all medication were reviewed, dispensed, administered and documented per hospital policy by Prabhjot CALLEJAS .
--- NOTE | 2021-07-09 06:18 | NUR ---
Problems reprioritized. Patient report given, questions answered & plan of care reviewed with Nellie.
[2021-07-09] MEDS ORDERED: Neutra Phos packet PO PRN (06:45)
[2021-07-09] MEDS ORDERED: potassium phosphate inj 30 MMOL in dextrose 5%-water 250 ML IV PRN (06:45)
[2021-07-09] MEDS: K and/or MAG REPLACEMENT MC SCH ×2 (08:00→20:00)
[2021-07-09] MEDS: dexamethasone inj 10 MG in normal saline 50ml IV soln 50 ML IV SCH ×2 (08:53→21:36)
[2021-07-09] MEDS: pantoprazole 40 MG vial IV SCH ×2 (08:58→21:34)
[2021-07-09] MEDS: metoclopramide 5 mg/ml inj IV SCH ×3 (09:01→21:34)
[2021-07-09] MEDS: furosemide 40mg/4ml inj IV SCH ×2 (09:02→15:00)
[2021-07-09] MEDS: enoxaparin 40mg/0.4ml syringe SUBCUT SCH ×2 (09:04→21:35)
[2021-07-09] MEDS: allopurinol 100mg tablet OGT SCH ×2 (09:05→21:36)
[2021-07-09] MEDS: levoTHYROXINE 88mcg tablet OGT SCH (09:05)
[2021-07-09] MEDS: ROPINIRole 1mg tablet OGT SCH ×2 (09:05→21:38)
[2021-07-09] MEDS: aspirin 81mg tab.chew OGT SCH (09:05)
[2021-07-09] MEDS: lactobacillus rhamnosus 10,000 MMU CELLS/CAPSULE OGT SCH ×2 (09:05→21:36)
[2021-07-09] MEDS: lactulose 20gm/30ml cup PO SCH ×3 (09:05→21:00)
[2021-07-09] MEDS: docusate sodium 100mg/10ml UD cup OGT SCH ×2 (09:05→20:00)
[2021-07-09] MEDS: insulin regular, human U-100 3ml vial - multi-dose SQ SCH ×4 (09:12→22:25)
[2021-07-09] MEDS: DEXMEDETOMIDINE 400mcg/4ml inj 400 MCG in normal saline 100ml IV soln 96 ML IV SCH (09:21)
[2021-07-09] MEDS: spironolactone 50 MG tablet PO SCH ×3 (09:24→21:36)
[2021-07-09] MEDS: CefTRIAXone 2gm/D5W 50ml BAG 50 ML IV SCH (09:35)
[2021-07-09] MEDS: potassium phosphate inj 15 MMOL in dextrose 5%-water 250 ML IV PRN (11:01)
[2021-07-09] MEDS ORDERED: VANCOMYCIN 750MG IV in NS 250 ML IV SCH (12:00)
[2021-07-09] MEDS: insulin glargine (Lantus) pen - multi-dose SQ SCH ×3 (12:40→22:32)
--- NOTE | 2021-07-09 14:27 | NUR ---
F/u: Pt remains intubated and tolerating TPN. Noted pt consistently having BMs since 07/07, documented with diarrhea, likely r/t resolution of constipation. MD agrees to start trickle tube feeds to monitor tolerance in hopes of weaning TPN, see TF recommendations below. Will continue to follow closely. Rec: 1) TPN per MD via PICC using 2:1 Clinimix non-E 5/20 at 79 ml/hr goal with separate 100 ml 20% intralipids to run at 8.33 ml/hr for 12 hours each day. In total to provide; 1996 ml volume, 95 g AA, 379 g DEX (3.99 mg/kg/min dext load), and 1869 total kcals. 2) Continuous trickle TF via OG tube using Vital High Protein at 25 mL/hr to provide 600 mL total volume/day, 600 kcal, 53 g protein, and 502 mL water 3) IF pt tolerates TF and goal rate to be advanced, continuous TF via OG tube using Vital High Protein with goal rate of 75 mL/hr to provide 1800 mL total volume/day, 1800 kcal, 158 g protein, and 1505 mL water 4) Wean TPN as tube feed advances pending pt tolerance to TF 5) TG/PALB q /; daily scaled wts 6) Routine bowel care and prokinetic agent Addendum: 07/09/21 at [address] Amended: Links added.
[2021-07-09] MEDS ORDERED: potassium phosphate inj 15 MMOL in dextrose 5%-water 250 ML IV ONE (17:00)
[2021-07-09] MEDS ORDERED: albumin (human) 25% 100 ML IV solution IV ONE (17:45)
[2021-07-09] MEDS: polyethylene glycol 3350 17gm powd pack OGT SCH (21:00)
[2021-07-09] MEDS: fat emulsion 20% inj. 100 ML IV SCH (21:36)
[2021-07-09] MEDS: midazolam 100mg in NS 100ml 100 ML IV PRN ×2 (22:23→23:43)
[2021-07-10] VITALS (23 sets, daily range): BP systolic 90–167; BP diastolic 48–89
[2021-07-10] MEDS: DEXMEDETOMIDINE 400mcg/4ml inj 400 MCG in normal saline 100ml IV soln 96 ML IV SCH ×2 (00:42→12:30)
[2021-07-10] MEDS: mineral oil/petrolatum ophthal oint EACHEYE SCH ×4 (02:29→20:28)
[2021-07-10] MEDS: FENTANYL-0.9 % NACL/PF 100 ML IV PRN ×2 (02:41→13:44)
[2021-07-10] MEDS: insulin regular, human U-100 3ml vial - multi-dose SQ SCH ×4 (03:00→19:59)
[2021-07-10] MEDS: ipratropium/albuterol 3ml nebule NEB SCH ×6 (03:14→23:22)
[2021-07-10 03:30] LABS: ABG BASE EXCESS -3.4 mmol/L (-2.0-2.0); ABG HCO3 21.2 mmol/L (22.0-26.0); ABG OXYGEN SATURATION 92.1 % (94-97); ABG PCO2 (T) 36.8 mmHg (32.0-45.0); ABG PO2 (T) 64.8 mmHg (75.0-100.0); ALLEN'S TEST POSITIVE; FCOHb 0.3 % (0.0-3.9); FMetHb 0.3 % (0.0-1.5); FO2Hb 91.5 % (94-97); PATIENT TEMPERATURE 37.2; PEEP 12 cm H2O; RESPIRATORY RATE 16 b/min; TOTAL HEMOGLOBIN 9.9 G/dl (12.0-16.0)
[2021-07-10 03:44] LABS: BASOPHILS % (AUTO) 0.1 % (0-1); EOSINOPHILS % (AUTO) 0.1 % (0-6); HEMATOCRIT 27.9 % (35.0-45.0); LYMPHOCYTES # (AUTO) 0.4 X10'3 (1.1-4.8); LYMPHOCYTES % (AUTO) 2.4 % (21-51); MEAN CORPUSCULAR HEMOGLOBIN 30.5 PG (27.0-31.0); MEAN CORPUSCULAR HGB CONC 32.3 g/dL (33.0-36.5); MEAN CORPUSCULAR VOLUME 94.5 FL (78-98); MEAN PLATELET VOLUME 10.1 FL (7.4-10.4); MONOCYTES # (AUTO) 0.3 X10'3 (0-0.9); MONOCYTES % (AUTO) 1.9 % (2-12); NEUTROPHILS % (AUTO) 95.5 % (42-75); PLATELET COUNT 128 X10'3 (140-440); RED BLOOD COUNT 2.95 X10'6 (4.20-5.60); RED CELL DISTRIBUTION WIDTH 14.7 % (11.5-14.5); WHITE BLOOD COUNT 16.8 X10'3 (4.5-11.0)
[2021-07-10 03:53] LABS: D-DIMER 2.41 MG/L FEU (0-0.50)
[2021-07-10 04:08] LABS: ALANINE AMINOTRANSFERASE 83 U/L (12-78); ALBUMIN 2.8 G/DL (3.4-5.0); ALBUMIN/GLOBULIN RATIO 0.8 (1.1-1.5); ALKALINE PHOSPHATASE 97 IU/L (46-116); ANION GAP 15 (8-16); ASPARTATE AMINO TRANSFERASE 40 U/L (10-37); BILIRUBIN,TOTAL 0.3 MG/DL (0.1-1.0); BLOOD UREA NITROGEN 64 MG/DL (7-18); BUN/CREATININE RATIO 57.1 (6.6-38.0); CALCIUM 8.4 MG/DL (8.5-10.1); CHLORIDE 107 MMOL/L (99-107); CREATININE 1.12 MG/DL (0.40-0.90); GLUCOSE 411 MG/DL (70-104); MAGNESIUM 2.2 MG/DL (1.5-2.4); PHOSPHORUS 1.9 MG/DL (2.3-4.5); POTASSIUM 3.3 MMOL/L (3.5-5.1); SODIUM 144 MMOL/L (135-145); TOTAL CARBON DIOXIDE 21.8 MMOL/L (24-32); TOTAL PROTEIN 6.1 G/DL (6.4-8.2); TRIGLYCERIDES 479 MG/DL (20-135); eGFR 46 ML/MIN
[2021-07-10 04:19] LABS: PREALBUMIN 50.2 MG/DL (19-36)
[2021-07-10] MEDS: MVI, adult No.4 with vit. K 5 ML, ZINC/COPPER/MANGANESE/SELENIUM 0.5 ML, chromic chlori... IV SCH ×8 (05:30→15:56)
--- NOTE | 2021-07-10 06:43 | NUR ---
[place] documentation: I have reviewed and agree with all interventions, assessments performed and documented by Breanna CALLEJAS. [place] Medication Administration: For this medication-pass time frame, all medication were reviewed, dispensed, administered and documented per hospital policy by Breanna CALLEJAS. Problems reprioritized. Patient report given, questions answered & plan of care reviewed with Shea CALLEJAS.
[2021-07-10] MEDS: dexamethasone inj 10 MG in normal saline 50ml IV soln 50 ML IV SCH ×2 (08:04→20:28)
[2021-07-10] MEDS: pantoprazole 40 MG vial IV SCH ×2 (08:04→20:21)
[2021-07-10] MEDS: CefTRIAXone 2gm/D5W 50ml BAG 50 ML IV SCH (08:04)
[2021-07-10] MEDS: enoxaparin 40mg/0.4ml syringe SUBCUT SCH ×2 (08:04→20:24)
[2021-07-10] MEDS: aspirin 81mg tab.chew OGT SCH (08:05)
[2021-07-10] MEDS: levoTHYROXINE 88mcg tablet OGT SCH (08:05)
[2021-07-10] MEDS: metoclopramide 5 mg/ml inj IV SCH ×3 (08:05→20:22)
[2021-07-10] MEDS: ROPINIRole 1mg tablet OGT SCH ×2 (08:05→20:22)
[2021-07-10] MEDS: lactobacillus rhamnosus 10,000 MMU CELLS/CAPSULE OGT SCH ×2 (08:05→20:00)
[2021-07-10] MEDS: spironolactone 50 MG tablet PO SCH ×3 (08:05→20:24)
[2021-07-10] MEDS: allopurinol 100mg tablet OGT SCH ×2 (08:05→20:24)
[2021-07-10] MEDS: lactulose 20gm/30ml cup PO SCH ×3 (08:05→20:21)
[2021-07-10] MEDS: docusate sodium 100mg/10ml UD cup OGT SCH ×2 (08:05→20:21)
[2021-07-10] MEDS: insulin glargine (Lantus) pen - multi-dose SQ SCH ×2 (08:41→20:02)
[2021-07-10] MEDS: K and/or MAG REPLACEMENT MC SCH ×2 (08:42→20:00)
--- NOTE | 2021-07-10 11:48 | NUR ---
F/u: Pt receiving trickle TF at 25 mL/hr with GRV WNL though elevated with range of 175-295 mL, d/w MD at critical care rounds recommendation for Corpak placement for post pyloric feeding for potential better tolerance to TF. MD agrees for Corpak placement, RN notified. Pt continues with TPN at goal rate. Noted serum TG elevated at 479 mg/dL, d/w clinical pharmacist recommendation to cut lipid rate in half, see below for updated TPN recommendations. [facility] 07/08. Will continue to follow closely and make recommendations as appropriate. Rec: 1) TPN per MD via PICC using 2:1 Clinimix non-E 04/10 at 79 ml/hr goal with separate 50 ml 20% intralipids to run at 4.17 ml/hr for 12 hours each day. In total to provide; 1946 ml volume, 95 g AA, 379 g DEX (3.99 mg/kg/min dext load), and 1769 total kcals 2) Once Corpak placed and confirmed with tip residing post-pyloric, continuous trickle TF using Vital High Protein at 25 mL/hr to provide 600 mL total volume/day, 600 kcal, 53 g protein, and 502 mL water 3) IF pt tolerates TF and goal rate to be advanced, continuous TF using Vital High Protein with goal rate of 75 mL/hr to provide 1800 mL total volume/day, 1800 kcal, 158 g protein, and 1505 mL water 4) Wean TPN as tube feed advances pending pt tolerance to TF 5) TG and PALB q /; Monitor serum TG and adjust lipids as appropriate 6) Daily scaled wts 7) Routine bowel care and prokinetic agent Addendum: 07/10/21 at [address] Amended: Links added.
[2021-07-10] MEDS: vancomycin/NS 1 GM ADD-VANTAGE 250 ML IV SCH (12:29)
[2021-07-10 15:15] LABS: C-REACTIVE PROTEIN 0.27 MG/DL (0.0-0.5)
[2021-07-10] MEDS: midazolam 100mg in NS 100ml 100 ML IV PRN (20:12)
[2021-07-10] MEDS: fat emulsion 20% inj. 100 ML IV SCH (20:25)
[2021-07-10] MEDS: polyethylene glycol 3350 17gm powd pack OGT SCH (21:00)
[2021-07-10 21:14] LABS: PHOSPHORUS 1.3 MG/DL (2.3-4.5); POTASSIUM 3.1 MMOL/L (3.5-5.1)
[2021-07-11] VITALS (21 sets, daily range): BP systolic 90–168; BP diastolic 47–84
[2021-07-11] MEDS: FENTANYL-0.9 % NACL/PF 100 ML IV PRN ×3 (00:52→22:23)
[2021-07-11] MEDS: mineral oil/petrolatum ophthal oint EACHEYE SCH ×4 (02:00→21:47)
[2021-07-11 02:23] LABS: ABG BASE EXCESS -1.6 mmol/L (-2.0-2.0); ABG HCO3 22.6 mmol/L (22.0-26.0); ABG OXYGEN SATURATION 92.1 % (94-97); ABG PCO2 (T) 36.4 mmHg (32.0-45.0); ABG PO2 (T) 65.4 mmHg (75.0-100.0); ALLEN'S TEST POSITIVE; FCOHb 0.3 % (0.0-3.9); FMetHb 0.3 % (0.0-1.5); FO2Hb 91.5 % (94-97); PATIENT TEMPERATURE 37.3; PEEP 12 cm H2O; RESPIRATORY RATE 16 b/min; TOTAL HEMOGLOBIN 9.7 G/dl (12.0-16.0)
[2021-07-11] MEDS: ipratropium/albuterol 3ml nebule NEB SCH ×6 (02:50→23:04)
[2021-07-11 04:41] LABS: BASOPHILS % (AUTO) 0.1 % (0-1); EOSINOPHILS % (AUTO) 0.2 % (0-6); HEMATOCRIT 26.4 % (35.0-45.0); HEMOGLOBIN 8.3 g/dl (12.0-16.0); LYMPHOCYTES # (AUTO) 0.7 X10'3 (1.1-4.8); LYMPHOCYTES % (AUTO) 4.3 % (21-51); MEAN CORPUSCULAR HEMOGLOBIN 30.4 PG (27.0-31.0); MEAN CORPUSCULAR HGB CONC 31.6 g/dL (33.0-36.5); MEAN CORPUSCULAR VOLUME 96.1 FL (78-98); MONOCYTES # (AUTO) 0.3 X10'3 (0-0.9); NEUTROPHILS # (AUTO) 15.4 X10'3 (1.8-7.7); NEUTROPHILS % (AUTO) 93.4 % (42-75); PLATELET COUNT 120 X10'3 (140-440); RED BLOOD COUNT 2.75 X10'6 (4.20-5.60); RED CELL DISTRIBUTION WIDTH 15.3 % (11.5-14.5); WHITE BLOOD COUNT 16.5 X10'3 (4.5-11.0)
[2021-07-11 04:51] LABS: ALANINE AMINOTRANSFERASE 76 U/L (12-78); ALBUMIN 2.6 G/DL (3.4-5.0); ALBUMIN/GLOBULIN RATIO 0.8 (1.1-1.5); ALKALINE PHOSPHATASE 111 IU/L (46-116); ANION GAP 13 (8-16); ASPARTATE AMINO TRANSFERASE 34 U/L (10-37); BILIRUBIN,TOTAL 0.3 MG/DL (0.1-1.0); BLOOD UREA NITROGEN 48 MG/DL (7-18); BUN/CREATININE RATIO 51.6 (6.6-38.0); C-REACTIVE PROTEIN 0.09 MG/DL (0.0-0.5); CALCIUM 8.6 MG/DL (8.5-10.1); CHLORIDE 110 MMOL/L (99-107); CREATININE 0.93 MG/DL (0.40-0.90); GLUCOSE 282 MG/DL (70-104); MAGNESIUM 2.2 MG/DL (1.5-2.4); PHOSPHORUS 5.3 MG/DL (2.3-4.5); POTASSIUM 4.5 MMOL/L (3.5-5.1); SODIUM 145 MMOL/L (135-145); TOTAL CARBON DIOXIDE 22.4 MMOL/L (24-32); TOTAL PROTEIN 5.8 G/DL (6.4-8.2); eGFR 58 ML/MIN
[2021-07-11] MEDS: MVI, adult No.4 with vit. K 5 ML, ZINC/COPPER/MANGANESE/SELENIUM 0.5 ML, chromic chlori... IV SCH ×8 (04:54→17:13)
[2021-07-11] MEDS: DEXMEDETOMIDINE 400mcg/4ml inj 400 MCG in normal saline 100ml IV soln 96 ML IV SCH ×2 (05:05→21:31)
[2021-07-11 06:27] LABS: ANISOCYTOSIS 1+; HYPOCHROMASIA 1+; PLATELET ESTIMATE NORMAL; POLYCHROMASIA 1+; TOTAL CELLS COUNTED 100
[2021-07-11] MEDS: CefTRIAXone 2gm/D5W 50ml BAG 50 ML IV SCH (10:42)
[2021-07-11] MEDS: dexamethasone inj 10 MG in normal saline 50ml IV soln 50 ML IV SCH ×2 (10:42→21:49)
[2021-07-11] MEDS: midazolam 100mg in NS 100ml 100 ML IV PRN (10:44)
[2021-07-11] MEDS: pantoprazole 40 MG vial IV SCH ×2 (10:45→22:15)
[2021-07-11] MEDS: allopurinol 100mg tablet OGT SCH ×2 (10:45→21:50)
[2021-07-11] MEDS: spironolactone 50 MG tablet PO SCH ×3 (10:45→21:50)
[2021-07-11] MEDS: docusate sodium 100mg/10ml UD cup OGT SCH ×2 (10:45→21:50)
[2021-07-11] MEDS: levoTHYROXINE 88mcg tablet OGT SCH (10:45)
[2021-07-11] MEDS: aspirin 81mg tab.chew OGT SCH (10:45)
[2021-07-11] MEDS: lactobacillus rhamnosus 10,000 MMU CELLS/CAPSULE OGT SCH ×2 (10:45→22:15)
[2021-07-11] MEDS: lactulose 20gm/30ml cup PO SCH ×3 (10:45→21:50)
[2021-07-11] MEDS: ROPINIRole 1mg tablet OGT SCH ×2 (10:45→22:15)
[2021-07-11] MEDS: K and/or MAG REPLACEMENT MC SCH ×2 (10:46→20:00)
[2021-07-11] MEDS: enoxaparin 40mg/0.4ml syringe SUBCUT SCH ×2 (10:46→21:51)
[2021-07-11] MEDS: metoclopramide 5 mg/ml inj IV SCH ×3 (10:46→21:50)
[2021-07-11] MEDS: insulin glargine (Lantus) pen - multi-dose SQ SCH ×2 (11:30→22:04)
[2021-07-11] MEDS: insulin regular, human U-100 3ml vial - multi-dose SQ SCH ×2 (11:35→22:10)
[2021-07-11] MEDS: vancomycin/NS 1 GM ADD-VANTAGE 250 ML IV SCH (12:53)
--- NOTE | 2021-07-11 14:50 | NUR ---
F/u: Still no Corpak in place. F/u with and multidisciplinary team at critical care rounds for Corpak placement, agrees. D/w charge nurse as there are still no orders in place for Corpak placement. GRV remains elevated using [place] for TF administration. Pt would benefit from post-pyloric feedings. Addendum: 07/11/21 at [address] Amended: Links added.
[2021-07-11] MEDS: polyethylene glycol 3350 17gm powd pack OGT SCH (21:49)
[2021-07-11] MEDS: fat emulsion 20% inj. 100 ML IV SCH (21:49)
[2021-07-12] VITALS (22 sets, daily range): BP systolic 90–200; BP diastolic 50–122
[2021-07-12 02:39] LABS: ABG BASE EXCESS -7.5 mmol/L (-2.0-2.0); ABG HCO3 17.2 mmol/L (22.0-26.0); ABG OXYGEN SATURATION 91.6 % (94-97); ABG PCO2 (T) 32.1 mmHg (32.0-45.0); ABG PO2 (T) 67.6 mmHg (75.0-100.0); ALLEN'S TEST POSITIVE; FCOHb 0.5 % (0.0-3.9); FMetHb 0.2 % (0.0-1.5); PATIENT TEMPERATURE 37.3; PEEP 12 cm H2O; RESPIRATORY RATE 16 b/min; TOTAL HEMOGLOBIN 8.5 G/dl (12.0-16.0)
[2021-07-12] MEDS: midazolam 100mg in NS 100ml 100 ML IV PRN ×3 (02:42→23:55)
[2021-07-12] MEDS: insulin regular, human U-100 3ml vial - multi-dose SQ SCH ×4 (02:57→19:51)
[2021-07-12] MEDS: mineral oil/petrolatum ophthal oint EACHEYE SCH ×4 (03:01→19:43)
[2021-07-12] MEDS: ipratropium/albuterol 3ml nebule NEB SCH ×6 (03:03→22:58)
[2021-07-12] MEDS: MVI, adult No.4 with vit. K 5 ML, ZINC/COPPER/MANGANESE/SELENIUM 0.5 ML, chromic chlori... IV SCH ×8 (05:19→18:41)
[2021-07-12] MEDS: FENTANYL-0.9 % NACL/PF 100 ML IV PRN ×2 (05:24→19:32)
[2021-07-12] MEDS: DEXMEDETOMIDINE 400mcg/4ml inj 400 MCG in normal saline 100ml IV soln 96 ML IV SCH ×2 (05:28→16:46)
[2021-07-12 06:26] LABS: ALANINE AMINOTRANSFERASE 71 U/L (12-78); ALBUMIN 2.3 G/DL (3.4-5.0); ALBUMIN/GLOBULIN RATIO 0.7 (1.1-1.5); ALKALINE PHOSPHATASE 99 IU/L (46-116); ANION GAP 14 (8-16); ASPARTATE AMINO TRANSFERASE 26 U/L (10-37); BILIRUBIN,TOTAL 0.2 MG/DL (0.1-1.0); BLOOD UREA NITROGEN 47 MG/DL (7-18); BUN/CREATININE RATIO 52.8 (6.6-38.0); C-REACTIVE PROTEIN 0.12 MG/DL (0.0-0.5); CALCIUM 8.5 MG/DL (8.5-10.1); CHLORIDE 110 MMOL/L (99-107); CREATININE 0.89 MG/DL (0.40-0.90); GLUCOSE 318 MG/DL (70-104); MAGNESIUM 2.1 MG/DL (1.5-2.4); PHOSPHORUS 2.7 MG/DL (2.3-4.5); SODIUM 142 MMOL/L (135-145); TOTAL CARBON DIOXIDE 17.7 MMOL/L (24-32); TOTAL PROTEIN 5.5 G/DL (6.4-8.2); eGFR 61 ML/MIN
[2021-07-12] MEDS ORDERED: FAT EMULSION IV SCH (07:54)
[2021-07-12] MEDS: insulin glargine (Lantus) pen - multi-dose SQ SCH ×2 (08:00→19:56)
[2021-07-12] MEDS: MESSAGE TO NURSING IV SCH (08:00)
[2021-07-12] MEDS: K and/or MAG REPLACEMENT MC SCH ×2 (08:00→19:43)
[2021-07-12] MEDS: docusate sodium 100mg/10ml UD cup OGT SCH ×2 (08:32→19:33)
[2021-07-12] MEDS: ROPINIRole 1mg tablet OGT SCH ×2 (08:33→19:32)
[2021-07-12] MEDS: lactobacillus rhamnosus 10,000 MMU CELLS/CAPSULE OGT SCH ×2 (08:33→19:32)
[2021-07-12] MEDS: aspirin 81mg tab.chew OGT SCH (08:33)
[2021-07-12] MEDS: allopurinol 100mg tablet OGT SCH ×2 (08:33→19:33)
[2021-07-12] MEDS: levoTHYROXINE 88mcg tablet OGT SCH (08:33)
[2021-07-12] MEDS: metoclopramide 5 mg/ml inj IV SCH ×3 (08:33→19:39)
[2021-07-12] MEDS: CefTRIAXone 2gm/D5W 50ml BAG 50 ML IV SCH (08:33)
[2021-07-12] MEDS: pantoprazole 40 MG vial IV SCH ×2 (08:33→19:33)
[2021-07-12] MEDS: dexamethasone inj 10 MG in normal saline 50ml IV soln 50 ML IV SCH (08:34)
[2021-07-12] MEDS: spironolactone 50 MG tablet PO SCH ×3 (08:34→19:38)
[2021-07-12] MEDS: lactulose 20gm/30ml cup PO SCH ×3 (08:34→19:38)
[2021-07-12] MEDS: enoxaparin 40mg/0.4ml syringe SUBCUT SCH ×2 (08:35→19:33)
[2021-07-12] MEDS ORDERED: VANCOMYCIN LEVEL IV ONE (11:30)
--- NOTE | 2021-07-12 12:14 | NUR ---
Reassessment: Pt remains intubated and receiving TPN with trickle TF at 25 mL/hr. Pt still not tolerating TF with elevated GRV ranging 370-760 mL over the last 24 hours. TC to RN who reports TF was not turned off over night despite high GRV though was turned off this morning as gastric residuals remain elevated. F/u with RN regarding Corpak placement as MD has been agreeable to this over the last two days though no orders have been put in place. Pt would likely have better tolerance to post-pyloric feedings via Corpak rather than OG feedings. D/w RN recommendation to hold off on trickle tube feeds at this time until Corpak is placed in view of continuing poor tolerance to TF. LBM 21, documented as small though with diarrhea and two BMs. Pt receiving routine bowel care as well as IV prokinetic agent TID. Will continue to follow closely. Rec: 1) TPN per via PICC using 2:1 Clinimix non-E 5/20 at 79 ml/hr goal with separate 50 ml 20% intralipids to run at 4.17 ml/hr for 12 hours each day. In total to provide; 1946 ml volume, 95 g AA, 379 g DEX (3.99 mg/kg/min dext load), and 1769 total kcals 2) Once Corpak placed and confirmed with tip residing post-pyloric, continuous trickle TF using Vital High Protein at 25 mL/hr to provide 600 mL total volume/day, 600 kcal, 53 g protein, and 502 mL water 3) IF pt tolerates TF and goal rate to be advanced, continuous TF using Vital High Protein with goal rate of 75 mL/hr to provide 1800 mL total volume/day, 1800 kcal, 158 g protein, and 1505 mL water 4) Wean TPN as tube feed advances pending pt tolerance to TF 5) TG and PALB q M/ 6) Monitor serum TG and adjust lipids as appropriate 7) Monitor electrolytes and need for electrolyte containing Clinimx 8) Daily scaled wts 9) Routine bowel care and prokinetic agent Addendum: 07/12/21 at [address] Amended: Links added.
[2021-07-12] MEDS: vancomycin/NS 1 GM ADD-VANTAGE 250 ML IV SCH (12:54)
[2021-07-12] MEDS ORDERED: amiodarone/D5 360MG/200ML BAG 200 ML IV SCH (15:20)
[2021-07-12] MEDS: polyethylene glycol 3350 17gm powd pack OGT SCH (19:34)
[2021-07-12] MEDS: FAT EMULSION 20% IV SCH (19:57)
[2021-07-12] MEDS: dexamethasone inj 6 MG in normal saline 50ml IV soln 50 ML IV SCH (20:00)
[2021-07-12] MEDS: potassium Cl 40MEQ/250ML bag 270 ML IV PRN (21:56)
[2021-07-13] VITALS (24 sets, daily range): BP systolic 100–164; BP diastolic 50–81
[2021-07-13] MEDS: vancomycin/NS 1 GM ADD-VANTAGE 250 ML IV SCH ×2 (00:44→12:25)
[2021-07-13] MEDS: DEXMEDETOMIDINE 400mcg/4ml inj 400 MCG in normal saline 100ml IV soln 96 ML IV SCH ×4 (00:45→19:43)
[2021-07-13] MEDS: mineral oil/petrolatum ophthal oint EACHEYE SCH ×4 (01:48→19:38)
[2021-07-13] MEDS: FENTANYL-0.9 % NACL/PF 100 ML IV PRN ×5 (01:49→22:43)
[2021-07-13] MEDS: ipratropium/albuterol 3ml nebule NEB SCH ×6 (02:29→22:37)
[2021-07-13] MEDS: insulin regular, human U-100 3ml vial - multi-dose SQ SCH ×4 (03:07→20:07)
[2021-07-13 04:03] LABS: ABG BASE EXCESS -7.6 mmol/L (-2.0-2.0); ABG HCO3 17.8 mmol/L (22.0-26.0); ABG OXYGEN SATURATION 90.3 % (94-97); ABG PCO2 (T) 35.5 mmHg (32.0-45.0); ABG PO2 (T) 60.1 mmHg (75.0-100.0); ALLEN'S TEST Modified; FCOHb 0.2 % (0.0-3.9); FMetHb 0.1 % (0.0-1.5); PATIENT TEMPERATURE 36.8; PEEP 10 cm H2O; RESPIRATORY RATE 16 b/min; TIDAL VOLUME 553 mL; TOTAL HEMOGLOBIN 8.7 G/dl (12.0-16.0)
--- NOTE | 2021-07-13 06:30 | NUR ---
Patient in room [facility] 2008. I have received report from JÚNIOR Chase and had the opportunity to ask questions and assume patient care.
[2021-07-13] MEDS: docusate sodium 100mg/10ml UD cup OGT SCH ×2 (07:53→19:41)
[2021-07-13] MEDS: pantoprazole 40 MG vial IV SCH ×2 (07:53→19:40)
[2021-07-13] MEDS: lactulose 20gm/30ml cup PO SCH ×3 (07:53→22:31)
[2021-07-13] MEDS: metoclopramide 5 mg/ml inj IV SCH ×3 (07:53→22:32)
[2021-07-13] MEDS: levoTHYROXINE 88mcg tablet OGT SCH (07:54)
[2021-07-13] MEDS: allopurinol 100mg tablet OGT SCH ×2 (07:54→19:41)
[2021-07-13] MEDS: aspirin 81mg tab.chew OGT SCH (07:55)
[2021-07-13] MEDS: ROPINIRole 1mg tablet OGT SCH ×2 (07:55→19:42)
[2021-07-13] MEDS: spironolactone 50 MG tablet PO SCH ×3 (07:55→22:32)
[2021-07-13] MEDS: lactobacillus rhamnosus 10,000 MMU CELLS/CAPSULE OGT SCH ×2 (07:55→19:41)
[2021-07-13] MEDS: dexamethasone inj 6 MG in normal saline 50ml IV soln 50 ML IV SCH ×2 (07:56→19:39)
[2021-07-13] MEDS: enoxaparin 40mg/0.4ml syringe SUBCUT SCH ×2 (07:57→19:42)
[2021-07-13] MEDS: MESSAGE TO NURSING IV SCH (08:00)
[2021-07-13] MEDS: K and/or MAG REPLACEMENT MC SCH ×2 (08:00→19:41)
[2021-07-13] MEDS: insulin glargine (Lantus) pen - multi-dose SQ SCH ×2 (08:17→20:05)
[2021-07-13] MEDS: MVI, adult No.4 with vit. K 5 ML, ZINC/COPPER/MANGANESE/SELENIUM 0.5 ML, chromic chlori... IV SCH ×8 (08:21→22:26)
[2021-07-13] MEDS: CefTRIAXone 2gm/D5W 50ml BAG 50 ML IV SCH (08:21)
[2021-07-13] MEDS: midazolam 100mg in NS 100ml 100 ML IV PRN ×2 (10:04→21:17)
[2021-07-13 13:23] LABS: BASOPHILS % (AUTO) 0.1 % (0-1); EOSINOPHILS % (AUTO) 0.1 % (0-6); HEMATOCRIT 27.1 % (35.0-45.0); HEMOGLOBIN 8.7 g/dl (12.0-16.0); LYMPHOCYTES # (AUTO) 0.7 X10'3 (1.1-4.8); MEAN CORPUSCULAR HEMOGLOBIN 30.7 PG (27.0-31.0); MEAN PLATELET VOLUME 9.3 FL (7.4-10.4); MONOCYTES # (AUTO) 0.4 X10'3 (0-0.9); MONOCYTES % (AUTO) 2.7 % (2-12); NEUTROPHILS # (AUTO) 13.8 X10'3 (1.8-7.7); NEUTROPHILS % (AUTO) 92.1 % (42-75); PLATELET COUNT 114 X10'3 (140-440); RED BLOOD COUNT 2.82 X10'6 (4.20-5.60); RED CELL DISTRIBUTION WIDTH 15.6 % (11.5-14.5)
[2021-07-13 13:26] LABS: ANION GAP 12 (8-16); BLOOD UREA NITROGEN 39 MG/DL (7-18); BUN/CREATININE RATIO 53.4 (6.6-38.0); CHLORIDE 114 MMOL/L (99-107); CREATININE 0.73 MG/DL (0.40-0.90); GLUCOSE 161 MG/DL (70-104); POTASSIUM 3.7 MMOL/L (3.5-5.1); SODIUM 144 MMOL/L (135-145); TOTAL CARBON DIOXIDE 18.5 MMOL/L (24-32)
[2021-07-13 13:27] LABS: ALANINE AMINOTRANSFERASE 75 U/L (12-78); ALBUMIN 2.1 G/DL (3.4-5.0); ALBUMIN/GLOBULIN RATIO 0.6 (1.1-1.5); ALKALINE PHOSPHATASE 119 IU/L (46-116); ASPARTATE AMINO TRANSFERASE 39 U/L (10-37); BILIRUBIN,TOTAL 0.2 MG/DL (0.1-1.0); C-REACTIVE PROTEIN 0.16 MG/DL (0.0-0.5); CALCIUM 8.2 MG/DL (8.5-10.1); TOTAL PROTEIN 5.5 G/DL (6.4-8.2); eGFR 76 ML/MIN
[2021-07-13 14:02] LABS: NUCLEATED RED BLOOD CELLS 1 /100WBC (0-0); TOTAL CELLS COUNTED 100
[2021-07-13 14:03] LABS: HYPOCHROMASIA 1+; PLATELET ESTIMATE DECREASED; POLYCHROMASIA 1+; SCHISTOCYTES FEW; STOMATOCYTES FEW; TEAR DROP CELLS 1+
--- NOTE | 2021-07-13 18:08 | NUR ---
Patient in room [facility] 2008. I have received report from JÚNIOR Chase and had the opportunity to ask questions and assume patient care.
--- NOTE | 2021-07-13 18:18 | NUR ---
Problems reprioritized. Patient report given, questions answered & plan of care reviewed with JÚNIOR Chase.
[2021-07-13] MEDS: FAT EMULSION 20% IV SCH (19:40)
[2021-07-13] MEDS: polyethylene glycol 3350 17gm powd pack OGT SCH (22:32)
[2021-07-13] MEDS ORDERED: VANCOMYCIN LEVEL IV ONE (23:30)
[2021-07-14] VITALS (24 sets, daily range): BP systolic 121–194; BP diastolic 57–91
[2021-07-14] MEDS: vancomycin/NS 1 GM ADD-VANTAGE 250 ML IV SCH (00:35)
[2021-07-14] MEDS: ipratropium/albuterol 3ml nebule NEB SCH ×6 (02:35→22:37)
[2021-07-14] MEDS: mineral oil/petrolatum ophthal oint EACHEYE SCH ×4 (02:56→20:00)
[2021-07-14] MEDS: DEXMEDETOMIDINE 400mcg/4ml inj 400 MCG in normal saline 100ml IV soln 96 ML IV SCH ×5 (02:57→23:14)
[2021-07-14 03:39] LABS: ABG BASE EXCESS -9.4 mmol/L (-2.0-2.0); ABG HCO3 16.9 mmol/L (22.0-26.0); ABG OXYGEN SATURATION 91.4 % (94-97); ABG PCO2 (T) 38.1 mmHg (32.0-45.0); ABG PO2 (T) 64.9 mmHg (75.0-100.0); ALLEN'S TEST Modified; FMetHb 0.2 % (0.0-1.5); FO2Hb 91.2 % (94-97); PATIENT TEMPERATURE 36.9; PEEP 11 cm H2O; RESPIRATORY RATE 16 b/min; TIDAL VOLUME 1140 mL; TOTAL HEMOGLOBIN 9.9 G/dl (12.0-16.0)
[2021-07-14] MEDS ORDERED: sodium bicarbonate (8.4%) inj. 150 MEQ in dextrose 5%-water 1,000 ML IV SCH (04:05)
[2021-07-14] MEDS: FENTANYL-0.9 % NACL/PF 100 ML IV PRN ×3 (05:00→20:16)
[2021-07-14 05:57] LABS: BASOPHILS % (AUTO) 0.1 % (0-1); EOSINOPHILS % (AUTO) 0 % (0-6); HEMATOCRIT 28.9 % (35.0-45.0); HEMOGLOBIN 9.4 g/dl (12.0-16.0); LYMPHOCYTES # (AUTO) 0.7 X10'3 (1.1-4.8); LYMPHOCYTES % (AUTO) 4.2 % (21-51); MEAN CORPUSCULAR HEMOGLOBIN 31.1 PG (27.0-31.0); MEAN CORPUSCULAR HGB CONC 32.4 g/dL (33.0-36.5); MEAN CORPUSCULAR VOLUME 95.8 FL (78-98); MONOCYTES # (AUTO) 0.4 X10'3 (0-0.9); MONOCYTES % (AUTO) 2.3 % (2-12); NEUTROPHILS % (AUTO) 93.4 % (42-75); PLATELET COUNT 127 X10'3 (140-440); RED BLOOD COUNT 3.02 X10'6 (4.20-5.60); RED CELL DISTRIBUTION WIDTH 15.6 % (11.5-14.5); WHITE BLOOD COUNT 17.1 X10'3 (4.5-11.0)
[2021-07-14 06:21] LABS: ALANINE AMINOTRANSFERASE 91 U/L (12-78); ALBUMIN 2.3 G/DL (3.4-5.0); ALBUMIN/GLOBULIN RATIO 0.7 (1.1-1.5); ALKALINE PHOSPHATASE 155 IU/L (46-116); ANION GAP 11 (8-16); ASPARTATE AMINO TRANSFERASE 49 U/L (10-37); BILIRUBIN,TOTAL 0.3 MG/DL (0.1-1.0); BLOOD UREA NITROGEN 41 MG/DL (7-18); BUN/CREATININE RATIO 56.2 (6.6-38.0); CALCIUM 8.5 MG/DL (8.5-10.1); CHLORIDE 115 MMOL/L (99-107); CREATININE 0.73 MG/DL (0.40-0.90); GLUCOSE 214 MG/DL (70-104); MAGNESIUM 2.1 MG/DL (1.5-2.4); SODIUM 144 MMOL/L (135-145); TOTAL CARBON DIOXIDE 18.1 MMOL/L (24-32); TOTAL PROTEIN 5.8 G/DL (6.4-8.2); eGFR 76 ML/MIN
[2021-07-14 06:24] LABS: C-REACTIVE PROTEIN 0.43 MG/DL (0.0-0.5); PREALBUMIN 47.6 MG/DL (19-36)
[2021-07-14] MEDS: dexamethasone inj 6 MG in normal saline 50ml IV soln 50 ML IV SCH ×2 (07:32→22:29)
[2021-07-14] MEDS: pantoprazole 40 MG vial IV SCH ×2 (07:33→22:29)
[2021-07-14] MEDS: lactulose 20gm/30ml cup PO SCH ×3 (07:33→22:29)
[2021-07-14] MEDS: enoxaparin 40mg/0.4ml syringe SUBCUT SCH ×2 (07:33→22:26)
[2021-07-14] MEDS: metoclopramide 5 mg/ml inj IV SCH ×3 (07:33→22:30)
[2021-07-14] MEDS: docusate sodium 100mg/10ml UD cup OGT SCH ×2 (07:33→22:29)
[2021-07-14] MEDS: aspirin 81mg tab.chew OGT SCH (07:34)
[2021-07-14] MEDS: spironolactone 50 MG tablet PO SCH ×3 (07:34→22:30)
[2021-07-14] MEDS: ROPINIRole 1mg tablet OGT SCH ×2 (07:34→22:35)
[2021-07-14] MEDS: lactobacillus rhamnosus 10,000 MMU CELLS/CAPSULE OGT SCH ×2 (07:34→22:29)
[2021-07-14] MEDS: allopurinol 100mg tablet OGT SCH ×2 (07:34→22:30)
[2021-07-14] MEDS: levoTHYROXINE 88mcg tablet OGT SCH (07:34)
[2021-07-14] MEDS: MESSAGE TO NURSING IV SCH (08:00)
[2021-07-14] MEDS: K and/or MAG REPLACEMENT MC SCH ×2 (08:00→20:00)
[2021-07-14 08:03] LABS: NUCLEATED RED BLOOD CELLS 2 /100WBC (0-0); TOTAL CELLS COUNTED 100
[2021-07-14 08:04] LABS: PLATELET ESTIMATE DECREASED
[2021-07-14 08:05] LABS: ANISOCYTOSIS 1+; POLYCHROMASIA 1+; TEAR DROP CELLS FEW
[2021-07-14] MEDS: insulin glargine (Lantus) pen - multi-dose SQ SCH ×2 (08:10→22:25)
[2021-07-14] MEDS: insulin regular, human U-100 3ml vial - multi-dose SQ SCH ×3 (08:11→22:24)
[2021-07-14] MEDS: CefTRIAXone 2gm/D5W 50ml BAG 50 ML IV SCH (08:12)
[2021-07-14] MEDS: midazolam 100mg in NS 100ml 100 ML IV PRN ×2 (08:13→17:15)
[2021-07-14] MEDS: MVI, adult No.4 with vit. K 5 ML, ZINC/COPPER/MANGANESE/SELENIUM 0.5 ML, chromic chlori... IV SCH ×12 (09:46→22:09)
--- NOTE | 2021-07-14 11:44 | NUR ---
F/u 07/14: Noted pt TG elevated at 492 receiving 50ml intralipids daily; supervisor rubber covering agreeable to holding lipids at this time. Rec: 1) TPN per MD via PICC using 2:1 Clinimix non-E 20 at 79 ml/hr goal. In total to provide; 1896ml volume, 95 g AA, 379 g DEX (3.99 mg/kg/min dext load), and 1669 total kcals 2) IF to restart intralipids once serum TG improves; separate 50 ml 20% intralipids to run at 4.17 ml/hr for 12 hours each day 3) Once Corpak placed and confirmed with tip residing post-pyloric, continuous trickle TF using Vital High Protein at 25 mL/hr to provide 600 mL total volume/day, 600 kcal, 53 g protein, and 502 mL water 4) IF pt tolerates TF and goal rate to be advanced, continuous TF using Vital High Protein with goal rate of 75 mL/hr to provide 1800 mL total volume/day, 1800 kcal, 158 g protein, and 1505 mL water 5) Wean TPN as tube feed advances pending pt tolerance to TF 6) TG/PALB q /; daily wts 7) Monitor for PN tolerance 8) Routine bowel care and prokinetic agent; 22 days w/ only one reported singificant BM yet no significant BM size documentation in EMR Addendum: 07/14/21 at [address] Amended: Links added.
[2021-07-14] MEDS ORDERED: VANCOmycin 1250MG/NS 250ml Bag 250 ML IV SCH (12:00)
[2021-07-14 14:28] LABS: PHOSPHORUS 2.5 MG/DL (2.3-4.5)
--- NOTE | 2021-07-14 18:26 | NUR ---
Problems reprioritized. Patient report given, questions answered & plan of care reviewed with Seymour .
[2021-07-14] MEDS: polyethylene glycol 3350 17gm powd pack OGT SCH (22:29)
[2021-07-15] VITALS (24 sets, daily range): BP systolic 104–183; BP diastolic 48–82
[2021-07-15] MEDS: FENTANYL-0.9 % NACL/PF 100 ML IV PRN ×5 (01:03→21:25)
[2021-07-15] MEDS: mineral oil/petrolatum ophthal oint EACHEYE SCH ×4 (01:03→20:50)
[2021-07-15] MEDS: ipratropium/albuterol 3ml nebule NEB SCH ×6 (02:46→22:59)
[2021-07-15 03:33] LABS: ABG BASE EXCESS -9.1 mmol/L (-2.0-2.0); ABG HCO3 18.1 mmol/L (22.0-26.0); ABG OXYGEN SATURATION 92.9 % (94-97); ABG PO2 (T) 62.8 mmHg (75.0-100.0); ALLEN'S TEST Modified; FCOHb 0.6 % (0.0-3.9); FMetHb 0.2 % (0.0-1.5); FO2Hb 92.2 % (94-97); PATIENT TEMPERATURE 35.6; PEEP 11 cm H2O; RESPIRATORY RATE 16 b/min; TOTAL HEMOGLOBIN 8.7 G/dl (12.0-16.0)
[2021-07-15 03:46] LABS: BASOPHILS % (AUTO) 0.1 % (0-1); EOSINOPHILS % (AUTO) 0.1 % (0-6); HEMATOCRIT 25.6 % (35.0-45.0); HEMOGLOBIN 8.2 g/dl (12.0-16.0); LYMPHOCYTES # (AUTO) 0.5 X10'3 (1.1-4.8); LYMPHOCYTES % (AUTO) 5.3 % (21-51); MEAN CORPUSCULAR HEMOGLOBIN 30.9 PG (27.0-31.0); MEAN CORPUSCULAR HGB CONC 32.2 g/dL (33.0-36.5); MEAN PLATELET VOLUME 8.5 FL (7.4-10.4); MONOCYTES # (AUTO) 0.2 X10'3 (0-0.9); MONOCYTES % (AUTO) 2.3 % (2-12); NEUTROPHILS # (AUTO) 8.8 X10'3 (1.8-7.7); NEUTROPHILS % (AUTO) 92.2 % (42-75); PLATELET COUNT 99 X10'3 (140-440); RED BLOOD COUNT 2.66 X10'6 (4.20-5.60); RED CELL DISTRIBUTION WIDTH 16.5 % (11.5-14.5); WHITE BLOOD COUNT 9.5 X10'3 (4.5-11.0)
[2021-07-15] MEDS: insulin regular, human U-100 3ml vial - multi-dose SQ SCH ×4 (03:52→20:23)
[2021-07-15 03:56] LABS: D-DIMER 2.56 MG/L FEU (0-0.50)
[2021-07-15 04:03] LABS: ALANINE AMINOTRANSFERASE 86 U/L (12-78); ALBUMIN 1.9 G/DL (3.4-5.0); ALBUMIN/GLOBULIN RATIO 0.6 (1.1-1.5); ALKALINE PHOSPHATASE 135 IU/L (46-116); ANION GAP 9 (8-16); ASPARTATE AMINO TRANSFERASE 39 U/L (10-37); BILIRUBIN,TOTAL 0.2 MG/DL (0.1-1.0); BLOOD UREA NITROGEN 35 MG/DL (7-18); BUN/CREATININE RATIO 61.4 (6.6-38.0); C-REACTIVE PROTEIN 3.42 MG/DL (0.0-0.5); CALCIUM 7.9 MG/DL (8.5-10.1); CHLORIDE 115 MMOL/L (99-107); CREATININE 0.57 MG/DL (0.40-0.90); GLUCOSE 168 MG/DL (70-104); POTASSIUM 3.7 MMOL/L (3.5-5.1); SODIUM 145 MMOL/L (135-145); TOTAL CARBON DIOXIDE 20.6 MMOL/L (24-32); TOTAL PROTEIN 5.2 G/DL (6.4-8.2); eGFR > 90 ML/MIN
[2021-07-15] MEDS: DEXMEDETOMIDINE 400mcg/4ml inj 400 MCG in normal saline 100ml IV soln 96 ML IV SCH ×3 (05:30→18:11)
--- NOTE | 2021-07-15 06:30 | NUR ---
Problems reprioritized. Patient report given, questions answered & plan of care reviewed with JÚNIOR Ahuja.
[2021-07-15] MEDS: K and/or MAG REPLACEMENT MC SCH ×2 (08:00→20:00)
[2021-07-15] MEDS: pantoprazole 40 MG vial IV SCH ×2 (08:50→20:46)
[2021-07-15] MEDS: docusate sodium 100mg/10ml UD cup OGT SCH ×2 (08:50→20:46)
[2021-07-15] MEDS: spironolactone 50 MG tablet PO SCH ×3 (08:50→20:49)
[2021-07-15] MEDS: allopurinol 100mg tablet OGT SCH ×2 (08:50→20:49)
[2021-07-15] MEDS: metoclopramide 5 mg/ml inj IV SCH ×3 (08:50→20:49)
[2021-07-15] MEDS: aspirin 81mg tab.chew OGT SCH (08:50)
[2021-07-15] MEDS: lactulose 20gm/30ml cup PO SCH ×3 (08:50→20:46)
[2021-07-15] MEDS: ROPINIRole 1mg tablet OGT SCH ×2 (08:50→20:49)
[2021-07-15] MEDS: levoTHYROXINE 88mcg tablet OGT SCH (08:50)
[2021-07-15] MEDS: lactobacillus rhamnosus 10,000 MMU CELLS/CAPSULE OGT SCH ×2 (08:50→20:49)
[2021-07-15] MEDS: CefTRIAXone 2gm/D5W 50ml BAG 50 ML IV SCH (08:51)
[2021-07-15] MEDS: enoxaparin 40mg/0.4ml syringe SUBCUT SCH ×2 (08:51→20:46)
[2021-07-15] MEDS: dexamethasone inj 6 MG in normal saline 50ml IV soln 50 ML IV SCH ×2 (08:51→20:47)
[2021-07-15] MEDS: insulin glargine (Lantus) pen - multi-dose SQ SCH ×2 (09:22→20:24)
[2021-07-15] MEDS ORDERED: magnesium citrate 296ml oral solution OGT ONE (11:00)
[2021-07-15] MEDS: MVI, adult No.4 with vit. K 5 ML, ZINC/COPPER/MANGANESE/SELENIUM 0.5 ML, chromic chlori... IV SCH ×8 (11:44→23:00)
[2021-07-15] MEDS: midazolam 100mg in NS 100ml 100 ML IV PRN ×2 (12:41→21:24)
--- NOTE | 2021-07-15 13:58 | NUR ---
Reassessment: Pt remains intubated and receiving TPN with lipids held at this time d/t elevated serum TG. Corpak placement was attempted however per KUB on 07/14 the tip is coiled in the distal stomach. Recommend discontinuing TF at this time until Corpak able to be placed post-pylorically or until bowel function improves, d/w MD at critical care rounds. LBM 07/12 per EMR however pt only documented with small BMs with most recent one being a smear, d/w . Pt to receive one time dose of Mag-Citrate today. Pt continues receiving routine Colace BID, Miralax HS, Lactulose TID, and IV Reglan TID. Will continue to follow closely. Rec: 1) TPN per MD via PICC using 2:1 Clinimix non-E 04/10 at 79 ml/hr goal. In total to provide; 1896ml volume, 95 g AA, 379 g DEX (3.99 mg/kg/min dext load), and 1669 total kcal 2) Monitor serum TG. IF to restart intralipids once serum TG improves, separate 50 mL 20% intralipids to run at 4.17 mL/hr for 12 hours each day. Increase to 100 mL 20% intralipids at 8.33 mL/hr for 12 hours each day as appropriate 3) IF Corpak to be placed and confirmed with tip residing post-pyloric, continuous trickle TF using Vital High Protein at 25 mL/hr to provide 600 mL total volume/day, 600 kcal, 53 g protein, and 502 mL water 4) IF pt tolerates TF and goal rate to be advanced, continuous TF using Vital High Protein with goal rate of 75 mL/hr to provide 1800 mL total volume/day, 1800 kcal, 158 g protein, and 1505 mL water 5) Wean TPN as tube feed advances pending pt tolerance to TF 6) TG/PALB q /; daily wts 7) Monitor for PN tolerance 8) Routine bowel care and prokinetic agent; 22 days with only one reported significant BM yet no significant BM size documentation in EMR Addendum: 07/15/21 at [address] Amended: Links added.
--- NOTE | 2021-07-15 18:24 | NUR ---
Problems reprioritized. Patient report given, questions answered & plan of care reviewed with JÚNIOR Ahuja.
[2021-07-15] MEDS: polyethylene glycol 3350 17gm powd pack OGT SCH (20:49)
[2021-07-15] MEDS ORDERED: VANCOMYCIN LEVEL IV ONE (23:30)
[2021-07-16] VITALS (25 sets, daily range): BP systolic 111–165; BP diastolic 51–74
[2021-07-16] MEDS: DEXMEDETOMIDINE 400mcg/4ml inj 400 MCG in normal saline 100ml IV soln 96 ML IV SCH ×4 (01:04→20:16)
[2021-07-16] MEDS: mineral oil/petrolatum ophthal oint EACHEYE SCH ×4 (02:00→20:44)
[2021-07-16] MEDS: ipratropium/albuterol 3ml nebule NEB SCH ×6 (03:17→23:38)
[2021-07-16 03:27] LABS: BASOPHILS % (AUTO) 0 % (0-1); EOSINOPHILS % (AUTO) 0 % (0-6); HEMATOCRIT 25.5 % (35.0-45.0); HEMOGLOBIN 8.2 g/dl (12.0-16.0); LYMPHOCYTES # (AUTO) 0.4 X10'3 (1.1-4.8); MEAN CORPUSCULAR HEMOGLOBIN 31.4 PG (27.0-31.0); MEAN CORPUSCULAR HGB CONC 32.3 g/dL (33.0-36.5); MEAN CORPUSCULAR VOLUME 97.4 FL (78-98); MEAN PLATELET VOLUME 8.6 FL (7.4-10.4); MONOCYTES # (AUTO) 0.2 X10'3 (0-0.9); MONOCYTES % (AUTO) 1.8 % (2-12); NEUTROPHILS # (AUTO) 8.2 X10'3 (1.8-7.7); NEUTROPHILS % (AUTO) 93.2 % (42-75); PLATELET COUNT 101 X10'3 (140-440); RED BLOOD COUNT 2.62 X10'6 (4.20-5.60); WHITE BLOOD COUNT 8.9 X10'3 (4.5-11.0)
[2021-07-16 03:40] LABS: ABG BASE EXCESS -9.1 mmol/L (-2.0-2.0); ABG HCO3 18.5 mmol/L (22.0-26.0); ABG OXYGEN SATURATION 95.4 % (94-97); ABG PCO2 (T) 47.1 mmHg (32.0-45.0); ABG PO2 (T) 81.6 mmHg (75.0-100.0); ALLEN'S TEST Modified; FCOHb 0.4 % (0.0-3.9); FMetHb 0.2 % (0.0-1.5); FO2Hb 94.8 % (94-97); PATIENT TEMPERATURE 36.5; PEEP 11 cm H2O; RESPIRATORY RATE 16 b/min; TOTAL HEMOGLOBIN 9.7 G/dl (12.0-16.0)
[2021-07-16 03:52] LABS: ALANINE AMINOTRANSFERASE 91 U/L (12-78); ALBUMIN 1.9 G/DL (3.4-5.0); ALBUMIN/GLOBULIN RATIO 0.6 (1.1-1.5); ALKALINE PHOSPHATASE 159 IU/L (46-116); ANION GAP 10 (8-16); ASPARTATE AMINO TRANSFERASE 36 U/L (10-37); BILIRUBIN,TOTAL 0.2 MG/DL (0.1-1.0); BLOOD UREA NITROGEN 40 MG/DL (7-18); BUN/CREATININE RATIO 70.2 (6.6-38.0); C-REACTIVE PROTEIN 2.13 MG/DL (0.0-0.5); CALCIUM 8.3 MG/DL (8.5-10.1); CHLORIDE 117 MMOL/L (99-107); CREATININE 0.57 MG/DL (0.40-0.90); GLUCOSE 108 MG/DL (70-104); MAGNESIUM 2.3 MG/DL (1.5-2.4); POTASSIUM 3.4 MMOL/L (3.5-5.1); SODIUM 147 MMOL/L (135-145); TOTAL PROTEIN 5.1 G/DL (6.4-8.2); eGFR > 90 ML/MIN
[2021-07-16] MEDS: FENTANYL-0.9 % NACL/PF 100 ML IV PRN ×4 (03:59→20:15)
[2021-07-16] MEDS: midazolam 100mg in NS 100ml 100 ML IV PRN ×2 (07:00→15:57)
[2021-07-16] MEDS: MESSAGE TO NURSING IV SCH ×2 (07:18→07:59)
[2021-07-16] MEDS: insulin regular, human U-100 3ml vial - multi-dose SQ SCH ×3 (07:54→20:56)
[2021-07-16] MEDS: CefTRIAXone 2gm/D5W 50ml BAG 50 ML IV SCH (07:56)
[2021-07-16] MEDS: dexamethasone inj 6 MG in normal saline 50ml IV soln 50 ML IV SCH ×2 (07:57→20:43)
[2021-07-16] MEDS: enoxaparin 40mg/0.4ml syringe SUBCUT SCH ×2 (07:57→20:42)
[2021-07-16] MEDS: aspirin 81mg tab.chew OGT SCH (07:58)
[2021-07-16] MEDS: allopurinol 100mg tablet OGT SCH ×2 (07:58→20:41)
[2021-07-16] MEDS: metoclopramide 5 mg/ml inj IV SCH ×3 (07:58→20:43)
[2021-07-16] MEDS: ROPINIRole 1mg tablet OGT SCH ×2 (07:58→20:41)
[2021-07-16] MEDS: spironolactone 50 MG tablet PO SCH ×3 (07:58→20:41)
[2021-07-16] MEDS: pantoprazole 40 MG vial IV SCH ×2 (07:58→20:43)
[2021-07-16] MEDS: docusate sodium 100mg/10ml UD cup OGT SCH ×2 (07:58→20:42)
[2021-07-16] MEDS: K and/or MAG REPLACEMENT MC SCH ×2 (07:59→20:00)
[2021-07-16] MEDS: lactobacillus rhamnosus 10,000 MMU CELLS/CAPSULE OGT SCH ×2 (08:02→20:41)
[2021-07-16] MEDS: lactulose 20gm/30ml cup PO SCH ×3 (08:02→21:00)
[2021-07-16] MEDS: levoTHYROXINE 88mcg tablet OGT SCH (08:02)
[2021-07-16] MEDS: potassium Cl 20 mEq SR tablet OGT PRN ×3 (08:03→22:57)
[2021-07-16] MEDS: insulin glargine (Lantus) pen - multi-dose SQ SCH ×2 (08:06→20:55)
[2021-07-16] MEDS ORDERED: albumin (human) 25% 100 ML IV solution IV ONE (09:10)
--- NOTE | 2021-07-16 12:54 | NUR ---
F/u: Per MD at critical care rounds okay to resume trickle tube feeds at 20 mL/hr and IV Reglan to be increased to Q6H, RN notified. Will continue to follow closely. Rec: 1) TPN per MD via PICC using 2:1 Clinimix non-E 04/10 at 79 ml/hr goal. In total to provide; 1896ml volume, 95 g AA, 379 g DEX (3.99 mg/kg/min dext load), and 1669 total kcal 2) Monitor serum TG. IF to restart intralipids once serum TG improves, separate 50 mL 20% intralipids to run at 4.17 mL/hr for 12 hours each day. Increase to 100 mL 20% intralipids at 8.33 mL/hr for 12 hours each day as appropriate 3) Continuous trickle TF using Vital High Protein at 20 mL/hr per MD to provide 480 mL total volume/day, 480 kcal, 42 g protein, and 401 mL water 4) IF pt tolerates TF and goal rate to be advanced, continuous TF using Vital High Protein with goal rate of 75 mL/hr to provide 1800 mL total volume/day, 1800 kcal, 158 g protein, and 1505 mL water 5) Wean TPN as tube feed advances pending pt tolerance to TF 6) TG/PALB q /; daily wts 7) Monitor for PN tolerance 8) Routine bowel care and prokinetic agent; 23 days with only one reported significant BM yet no significant BM size documentation in EMR Addendum: 07/16/21 at [address] Amended: Links added.
[2021-07-16] MEDS: ZINC/COPPER/MANGANESE/SELENIUM 0.5 ML, chromic chloride inj. 5 MCG in AMINO ACIDS 5 %/D... IV SCH (13:50)
[2021-07-16] MEDS: polyethylene glycol 3350 17gm powd pack OGT SCH (20:41)
[2021-07-17] VITALS (24 sets, daily range): BP systolic 95–171; BP diastolic 42–84
[2021-07-17] MEDS: metoclopramide 5 mg/ml inj IV SCH ×4 (01:48→20:57)
[2021-07-17] MEDS: mineral oil/petrolatum ophthal oint EACHEYE SCH ×4 (01:48→20:59)
[2021-07-17] MEDS: midazolam 100mg in NS 100ml 100 ML IV PRN ×3 (01:48→20:56)
[2021-07-17] MEDS: FENTANYL-0.9 % NACL/PF 100 ML IV PRN ×4 (01:48→23:21)
[2021-07-17] MEDS: ZINC/COPPER/MANGANESE/SELENIUM 0.5 ML, chromic chloride inj. 5 MCG in AMINO ACIDS 5 %/D... IV SCH ×2 (01:49→14:20)
--- NOTE | 2021-07-17 03:00 | NUR ---
RN Note -Blood sugar 53, treated according to protocol, next blood sugar 100. Moved down to level 4.
[2021-07-17 03:31] LABS: BASOPHILS % (AUTO) 0.5 % (0-1); EOSINOPHILS % (AUTO) 0.1 % (0-6); HEMATOCRIT 24.2 % (35.0-45.0); HEMOGLOBIN 7.7 g/dl (12.0-16.0); LYMPHOCYTES # (AUTO) 0.5 X10'3 (1.1-4.8); LYMPHOCYTES % (AUTO) 5.1 % (21-51); MEAN CORPUSCULAR HGB CONC 31.9 g/dL (33.0-36.5); MEAN CORPUSCULAR VOLUME 97.4 FL (78-98); MEAN PLATELET VOLUME 8.4 FL (7.4-10.4); MONOCYTES # (AUTO) 0.2 X10'3 (0-0.9); MONOCYTES % (AUTO) 2.5 % (2-12); NEUTROPHILS # (AUTO) 8.5 X10'3 (1.8-7.7); NEUTROPHILS % (AUTO) 91.8 % (42-75); PLATELET COUNT 113 X10'3 (140-440); RED BLOOD COUNT 2.49 X10'6 (4.20-5.60); RED CELL DISTRIBUTION WIDTH 17.6 % (11.5-14.5); WHITE BLOOD COUNT 9.2 X10'3 (4.5-11.0)
[2021-07-17] MEDS: ipratropium/albuterol 3ml nebule NEB SCH ×6 (03:32→23:34)
[2021-07-17 03:52] LABS: ALANINE AMINOTRANSFERASE 105 U/L (12-78); ALBUMIN 2.8 G/DL (3.4-5.0); ALBUMIN/GLOBULIN RATIO 0.9 (1.1-1.5); ALKALINE PHOSPHATASE 145 IU/L (46-116); ANION GAP 10 (8-16); ASPARTATE AMINO TRANSFERASE 39 U/L (10-37); BILIRUBIN,TOTAL 0.3 MG/DL (0.1-1.0); BLOOD UREA NITROGEN 42 MG/DL (7-18); BUN/CREATININE RATIO 89.4 (6.6-38.0); C-REACTIVE PROTEIN 0.93 MG/DL (0.0-0.5); CHLORIDE 119 MMOL/L (99-107); CREATININE 0.47 MG/DL (0.40-0.90); GLUCOSE 52 MG/DL (70-104); MAGNESIUM 2.3 MG/DL (1.5-2.4); PHOSPHORUS 1.6 MG/DL (2.3-4.5); POTASSIUM 3.3 MMOL/L (3.5-5.1); SODIUM 150 MMOL/L (135-145); TOTAL CARBON DIOXIDE 20.9 MMOL/L (24-32); TOTAL PROTEIN 5.8 G/DL (6.4-8.2); TRIGLYCERIDES 250 MG/DL (20-135); eGFR > 90 ML/MIN
[2021-07-17 04:42] LABS: ABG BASE EXCESS -7.6 mmol/L (-2.0-2.0); ABG HCO3 19.2 mmol/L (22.0-26.0); ABG OXYGEN SATURATION 92.2 % (94-97); ABG PCO2 (T) 45.2 mmHg (32.0-45.0); ABG PO2 (T) 65.6 mmHg (75.0-100.0); ALLEN'S TEST POSITIVE; FCOHb 0.8 % (0.0-3.9); FMetHb 0.4 % (0.0-1.5); FO2Hb 91.1 % (94-97); PATIENT TEMPERATURE 36.8; PEEP 11 cm H2O; RESPIRATORY RATE 18 b/min
[2021-07-17] MEDS: potassium Cl 40MEQ/250ML bag 270 ML IV PRN (04:48)
[2021-07-17] MEDS: DEXMEDETOMIDINE 400mcg/4ml inj 400 MCG in normal saline 100ml IV soln 96 ML IV SCH ×3 (04:49→16:50)
--- NOTE | 2021-07-17 05:00 | NUR ---
RN Note -pt still having high gastric output
[2021-07-17] MEDS: K and/or MAG REPLACEMENT MC SCH ×2 (08:00→20:00)
[2021-07-17] MEDS: MESSAGE TO NURSING IV SCH (08:10)
[2021-07-17] MEDS: dexamethasone inj 6 MG in normal saline 50ml IV soln 50 ML IV SCH (08:37)
[2021-07-17] MEDS: pantoprazole 40 MG vial IV SCH ×2 (08:38→20:57)
[2021-07-17] MEDS: CefTRIAXone 2gm/D5W 50ml BAG 50 ML IV SCH (08:41)
[2021-07-17] MEDS: lactulose 20gm/30ml cup PO SCH ×3 (08:42→20:57)
[2021-07-17] MEDS: levoTHYROXINE 88mcg tablet OGT SCH (08:42)
[2021-07-17] MEDS: docusate sodium 100mg/10ml UD cup OGT SCH ×2 (08:42→20:57)
[2021-07-17] MEDS: allopurinol 100mg tablet OGT SCH ×2 (08:42→20:57)
[2021-07-17] MEDS: lactobacillus rhamnosus 10,000 MMU CELLS/CAPSULE OGT SCH ×2 (08:42→20:57)
[2021-07-17] MEDS: aspirin 81mg tab.chew OGT SCH (08:42)
[2021-07-17] MEDS: ROPINIRole 1mg tablet OGT SCH ×2 (08:42→20:00)
[2021-07-17] MEDS: spironolactone 50 MG tablet PO SCH ×3 (08:42→21:00)
[2021-07-17] MEDS: enoxaparin 40mg/0.4ml syringe SUBCUT SCH ×2 (08:43→20:57)
[2021-07-17] MEDS: insulin glargine (Lantus) pen - multi-dose SQ SCH ×2 (08:45→21:19)
[2021-07-17] MEDS: insulin regular, human U-100 3ml vial - multi-dose SQ SCH ×3 (08:54→21:20)
[2021-07-17] MEDS ORDERED: MVI, adult No.4 with vit. K 10 ML in dextrose 5% water 500ml 500 ML IV SCH ×2 (10:00)
[2021-07-17] MEDS: QUEtiapine 25mg tablet PO SCH ×2 (10:15→20:58)
[2021-07-17] MEDS: methylnaltrexone br 12mg/0.6ml inj***SubQ only SQ SCH (12:52)
[2021-07-17] MEDS ORDERED: metoprolol tartrate 1mg/ml inj IV ONE (13:20)
[2021-07-17] MEDS: potassium phosphate inj 15 MMOL in dextrose 5%-water 250 ML IV PRN (15:09)
--- NOTE | 2021-07-17 17:54 | NUR ---
I agree with physical assessment done by JÚNIOR Ross
[2021-07-17 18:44] LABS: D-DIMER 2.18 MG/L FEU (0-0.50)
[2021-07-17] MEDS: polyethylene glycol 3350 17gm powd pack OGT SCH (20:58)
[2021-07-17] MEDS: dexamethasone inj 5 MG in normal saline 50ml IV soln 50 ML IV SCH (20:59)
[2021-07-18] VITALS (24 sets, daily range): BP systolic 96–189; BP diastolic 48–84
[2021-07-18] MEDS: DEXMEDETOMIDINE 400mcg/4ml inj 400 MCG in normal saline 100ml IV soln 96 ML IV SCH ×2 (00:06→06:29)
[2021-07-18] MEDS: insulin regular, human U-100 3ml vial - multi-dose SQ SCH ×4 (02:32→21:00)
[2021-07-18] MEDS: metoclopramide 5 mg/ml inj IV SCH ×4 (02:33→20:49)
[2021-07-18] MEDS: mineral oil/petrolatum ophthal oint EACHEYE SCH ×4 (02:33→20:49)
[2021-07-18] MEDS: ipratropium/albuterol 3ml nebule NEB SCH ×6 (02:52→23:18)
[2021-07-18 03:06] LABS: BASOPHILS % (AUTO) 0.1 % (0-1); EOSINOPHILS % (AUTO) 0.3 % (0-6); HEMATOCRIT 24.7 % (35.0-45.0); HEMOGLOBIN 7.9 g/dl (12.0-16.0); LYMPHOCYTES # (AUTO) 0.6 X10'3 (1.1-4.8); LYMPHOCYTES % (AUTO) 8.4 % (21-51); MEAN CORPUSCULAR HEMOGLOBIN 31.3 PG (27.0-31.0); MEAN CORPUSCULAR HGB CONC 32.2 g/dL (33.0-36.5); MEAN CORPUSCULAR VOLUME 97.4 FL (78-98); MEAN PLATELET VOLUME 7.8 FL (7.4-10.4); MONOCYTES # (AUTO) 0.1 X10'3 (0-0.9); MONOCYTES % (AUTO) 2.2 % (2-12); NEUTROPHILS # (AUTO) 5.9 X10'3 (1.8-7.7); PLATELET COUNT 101 X10'3 (140-440); RED BLOOD COUNT 2.54 X10'6 (4.20-5.60); RED CELL DISTRIBUTION WIDTH 17.8 % (11.5-14.5); WHITE BLOOD COUNT 6.6 X10'3 (4.5-11.0)
[2021-07-18 03:15] LABS: ABG HCO3 18.5 mmol/L (22.0-26.0); ABG OXYGEN SATURATION 89.5 % (94-97); ABG PCO2 (T) 41.5 mmHg (32.0-45.0); ABG PO2 (T) 57.9 mmHg (75.0-100.0); ALLEN'S TEST POSITIVE; FMetHb 0.3 % (0.0-1.5); FO2Hb 88.3 % (94-97); PATIENT TEMPERATURE 36.6; PEEP 11 cm H2O; RESPIRATORY RATE 18 b/min; TOTAL HEMOGLOBIN 8.6 G/dl (12.0-16.0)
[2021-07-18 03:24] LABS: D-DIMER 2.85 MG/L FEU (0-0.50)
[2021-07-18 03:26] LABS: ALANINE AMINOTRANSFERASE 113 U/L (12-78); ALBUMIN 2.5 G/DL (3.4-5.0); ALBUMIN/GLOBULIN RATIO 0.8 (1.1-1.5); ALKALINE PHOSPHATASE 154 IU/L (46-116); ANION GAP 11 (8-16); ASPARTATE AMINO TRANSFERASE 40 U/L (10-37); BILIRUBIN,TOTAL 0.4 MG/DL (0.1-1.0); BLOOD UREA NITROGEN 42 MG/DL (7-18); BUN/CREATININE RATIO 82.4 (6.6-38.0); C-REACTIVE PROTEIN 0.53 MG/DL (0.0-0.5); CALCIUM 8.4 MG/DL (8.5-10.1); CHLORIDE 116 MMOL/L (99-107); CREATININE 0.51 MG/DL (0.40-0.90); GLUCOSE 95 MG/DL (70-104); MAGNESIUM 2.3 MG/DL (1.5-2.4); POTASSIUM 3.5 MMOL/L (3.5-5.1); SODIUM 148 MMOL/L (135-145); TOTAL CARBON DIOXIDE 20.7 MMOL/L (24-32); TOTAL PROTEIN 5.7 G/DL (6.4-8.2); eGFR > 90 ML/MIN
[2021-07-18] MEDS: ZINC/COPPER/MANGANESE/SELENIUM 0.5 ML, chromic chloride inj. 5 MCG in AMINO ACIDS 5 %/D... IV SCH ×2 (03:26→15:48)
[2021-07-18 04:01] LABS: BANDS% (MANUAL) 2 % (0-10); LYMPHOCYTES % (MANUAL) 11 % (21-51); METAMYLEOCYTES% (MANUAL) 4 % (0-0); MONOCYTES % (MANUAL) 1 % (2-12); NEUTROPHILS % (MANUAL) 82 % (42-75); PLATELET ESTIMATE DECREASED; TOTAL CELLS COUNTED 100
[2021-07-18 04:02] LABS: ANISOCYTOSIS 1+
[2021-07-18] MEDS: FENTANYL-0.9 % NACL/PF 100 ML IV PRN (05:53)
[2021-07-18] MEDS: midazolam 100mg in NS 100ml 100 ML IV PRN (05:56)
[2021-07-18 08:18] LABS: PHOSPHORUS 2.2 MG/DL (2.3-4.5)
[2021-07-18] MEDS ORDERED: QUEtiapine 25mg tablet OGT SCH (08:46)
[2021-07-18] MEDS: K and/or MAG REPLACEMENT MC SCH ×2 (09:08→20:00)
[2021-07-18] MEDS: MESSAGE TO NURSING IV SCH (09:08)
[2021-07-18] MEDS: dexamethasone inj 5 MG in normal saline 50ml IV soln 50 ML IV SCH ×2 (09:20→20:49)
[2021-07-18] MEDS: enoxaparin 40mg/0.4ml syringe SUBCUT SCH ×2 (09:20→20:50)
[2021-07-18] MEDS: pantoprazole 40 MG vial IV SCH ×2 (09:20→20:51)
[2021-07-18] MEDS: lactulose 20gm/30ml cup OGT SCH ×3 (09:21→20:54)
[2021-07-18] MEDS: spironolactone 50 MG tablet OGT SCH ×3 (09:21→20:51)
[2021-07-18] MEDS: lactobacillus rhamnosus 10,000 MMU CELLS/CAPSULE OGT SCH ×2 (09:21→20:50)
[2021-07-18] MEDS: docusate sodium 100mg/10ml UD cup OGT SCH ×2 (09:21→20:54)
[2021-07-18] MEDS: allopurinol 100mg tablet OGT SCH ×2 (09:22→20:50)
[2021-07-18] MEDS: ROPINIRole 1mg tablet OGT SCH ×2 (09:22→20:50)
[2021-07-18] MEDS: levoTHYROXINE 88mcg tablet OGT SCH (09:22)
[2021-07-18] MEDS: aspirin 81mg tab.chew OGT SCH (09:23)
[2021-07-18] MEDS: insulin glargine (Lantus) pen - multi-dose SQ SCH ×2 (09:24→20:58)
[2021-07-18] MEDS: potassium phosphate inj 15 MMOL in dextrose 5%-water 250 ML IV PRN (09:47)
[2021-07-18] MEDS ORDERED: metoprolol tartrate 1mg/ml inj IV ONE ×2 (10:15→12:30)
[2021-07-18] MEDS ORDERED: diatrozoate meglu/diatrozoate sod (37% iodine) 120ML oral solution PO ONE (11:10)
[2021-07-18] MEDS ORDERED: diatr meglu/diatrizoate 30ml oral sol.-(3 dose) bottle PO SCH (11:16)
--- NOTE | 2021-07-18 11:29 | NUR ---
F/u 07/18: Pt tolerating TPN at goal rate. RN reports large BM 07/12 w/ GRV's 700-800's upon attempt to restart trickle EN since 07/16 during rounds however no documentation of significant BM since admit 06/23 or TF rate/GRV checks since 07/12 in EMR. IF pt had large BM 07/12 then still would have 6 days constipation w/ hx not tolerating EN majority of admit. Pending GI imaging today to determine if GI compromise and trickle EN should be resumed as soon as possible per cook boat at rounds. Will monitor for GI imaging results and nutrition support adjustment needs on vent. Unable to meet needs w/ PN given current 2:1 5/ high dextrose formulary though shortage of 04/10 and to change to 2:1 / per clinical pharmacist. Updated PN recs below to better meet protein needs on vent w/ lower dextrose formulary. unable to meet protein needs without likely fluid overloading as pt already BUE+3 edema present and -10L fluid balance thus far. Rec: 1) TPN per MD via PICC using 2:1 Clinimix non-E 04/10 at 79 ml/hr goal. In total to provide; 1896ml volume, 95g AA, 379 g DEX (3.99 mg/kg/min dext load), and 1669 total kcal 2) IF TPN using 2:1 Clinimix non-E 04/05 recommend 100ml/hr goal rate. To provide: 2400ml volume, 120g AA, 360g DEX (2.73mg/kg/min), and 1704 total kcals. Okay to initiate at goal rate 100ml/hr as new dex loading less than prior TPN at goal rate. 3) Monitor serum TG. IF to restart intralipids once serum TG improves, separate 50 mL 20% intralipids to run at 4.17 mL/hr for 12 hours each day. Increase to 100 mL 20% intralipids at 8.33 mL/hr for 12 hours each day as appropriate 4) Continuous trickle TF using Vital High Protein at 20 mL/hr per MD to provide 480 mL total volume/day, 480 kcal, 42 g protein, and 401 mL water 5) IF pt tolerates TF and goal rate to be advanced, continuous TF using Vital High Protein with goal rate of 75 mL/hr to provide 1800 mL total volume/day, 1800 kcal, 158 g protein, and 1505 mL water 6) Wean TPN as tube feed advances pending pt tolerance to TF 7) TG/PALB q /; daily wts 8) Monitor for PN tolerance 9) Routine bowel care and prokinetic agent; 23 days with only one reported significant BM yet no significant BM size documentation in EMR Addendum: 07/18/21 at [address] Amended: Links added.
[2021-07-18] MEDS: diatr meglu/diatrizoate 30ml oral sol.-(3 dose) bottle PO SCH ×3 (11:37→12:55)
--- NOTE | 2021-07-18 12:49 | NUR ---
bp 182/84 HR 118 metoprolol 2mg IV given HRn 102 , BP 177/73
[2021-07-18] MEDS: polyethylene glycol 3350 17gm powd pack OGT SCH (20:54)
[2021-07-18] MEDS: acetaminophen 325mg/10.15ml oral unit dose solution OGT PRN (21:01)
[2021-07-19] VITALS (25 sets, daily range): BP systolic 124–154; BP diastolic 45–72
[2021-07-19] MEDS: mineral oil/petrolatum ophthal oint EACHEYE SCH ×4 (02:00→20:14)
[2021-07-19] MEDS: metoclopramide 5 mg/ml inj IV SCH ×4 (02:00→19:59)
[2021-07-19] MEDS: ipratropium/albuterol 3ml nebule NEB SCH ×6 (02:51→22:56)
[2021-07-19 03:05] LABS: ABG BASE EXCESS -7.2 mmol/L (-2.0-2.0); ABG OXYGEN SATURATION 92.6 % (94-97); ABG PCO2 (T) 50.4 mmHg (32.0-45.0); ABG PO2 (T) 76.9 mmHg (75.0-100.0); ALLEN'S TEST POSITIVE; FCOHb 0.7 % (0.0-3.9); FMetHb 0.5 % (0.0-1.5); FO2Hb 91.5 % (94-97); PEEP 11 cm H2O; RESPIRATORY RATE 18 b/min; TOTAL HEMOGLOBIN 8.8 G/dl (12.0-16.0)
[2021-07-19] MEDS: insulin regular, human U-100 3ml vial - multi-dose SQ SCH ×3 (03:54→20:45)
[2021-07-19 04:23] LABS: BASOPHILS % (AUTO) 0.2 % (0-1); EOSINOPHILS % (AUTO) 0.1 % (0-6); HEMATOCRIT 25.8 % (35.0-45.0); HEMOGLOBIN 8.3 g/dl (12.0-16.0); LYMPHOCYTES % (AUTO) 9.9 % (21-51); MEAN CORPUSCULAR HEMOGLOBIN 31.2 PG (27.0-31.0); MEAN CORPUSCULAR VOLUME 97.7 FL (78-98); MONOCYTES # (AUTO) 0.3 X10'3 (0-0.9); NEUTROPHILS # (AUTO) 9.2 X10'3 (1.8-7.7); NEUTROPHILS % (AUTO) 86.8 % (42-75); PLATELET COUNT 107 X10'3 (140-440); RED BLOOD COUNT 2.64 X10'6 (4.20-5.60); RED CELL DISTRIBUTION WIDTH 18.2 % (11.5-14.5); WHITE BLOOD COUNT 10.6 X10'3 (4.5-11.0)
[2021-07-19 04:45] LABS: ALANINE AMINOTRANSFERASE 194 U/L (12-78); ALBUMIN 2.5 G/DL (3.4-5.0); ALBUMIN/GLOBULIN RATIO 0.8 (1.1-1.5); ALKALINE PHOSPHATASE 234 IU/L (46-116); ANION GAP 10 (8-16); ASPARTATE AMINO TRANSFERASE 67 U/L (10-37); BILIRUBIN,TOTAL 0.6 MG/DL (0.1-1.0); BLOOD UREA NITROGEN 59 MG/DL (7-18); C-REACTIVE PROTEIN 0.85 MG/DL (0.0-0.5); CALCIUM 8.6 MG/DL (8.5-10.1); CHLORIDE 115 MMOL/L (99-107); CREATININE 0.82 MG/DL (0.40-0.90); GLUCOSE 204 MG/DL (70-104); MAGNESIUM 2.6 MG/DL (1.5-2.4); POTASSIUM 4.4 MMOL/L (3.5-5.1); SODIUM 146 MMOL/L (135-145); TOTAL CARBON DIOXIDE 21.2 MMOL/L (24-32); TOTAL PROTEIN 5.7 G/DL (6.4-8.2); eGFR 67 ML/MIN
[2021-07-19 04:46] LABS: D-DIMER 4.34 MG/L FEU (0-0.50)
[2021-07-19 05:30] LABS: ANISOCYTOSIS 2+; NUCLEATED RED BLOOD CELLS 5 /100WBC (0-0); PLATELET ESTIMATE DECREASED; POLYCHROMASIA FEW; TOTAL CELLS COUNTED 100
[2021-07-19] MEDS: ZINC/COPPER/MANGANESE/SELENIUM 0.5 ML, chromic chloride inj. 5 MCG in AMINO ACIDS 5 %/D... IV SCH ×2 (05:58→17:03)
[2021-07-19 07:17] LABS: PHOSPHORUS 3.6 MG/DL (2.3-4.5)
[2021-07-19] MEDS: MESSAGE TO NURSING IV SCH (08:00)
[2021-07-19] MEDS: K and/or MAG REPLACEMENT MC SCH ×2 (08:00→20:00)
[2021-07-19] MEDS: docusate sodium 100mg/10ml UD cup OGT SCH ×2 (09:00→19:57)
[2021-07-19] MEDS: dexamethasone inj 5 MG in normal saline 50ml IV soln 50 ML IV SCH ×2 (09:00→19:59)
[2021-07-19] MEDS: acetaminophen 325mg/10.15ml oral unit dose solution OGT PRN ×2 (09:01→23:14)
[2021-07-19] MEDS: methylnaltrexone br 12mg/0.6ml inj***SubQ only SQ SCH (09:01)
[2021-07-19] MEDS: pantoprazole 40 MG vial IV SCH ×2 (09:02→19:59)
[2021-07-19] MEDS: lactulose 20gm/30ml cup OGT SCH ×3 (09:02→21:56)
[2021-07-19] MEDS: aspirin 81mg tab.chew OGT SCH (09:02)
[2021-07-19] MEDS: enoxaparin 40mg/0.4ml syringe SUBCUT SCH ×2 (09:02→19:58)
[2021-07-19] MEDS: levoTHYROXINE 88mcg tablet OGT SCH (09:03)
[2021-07-19] MEDS: lactobacillus rhamnosus 10,000 MMU CELLS/CAPSULE OGT SCH ×2 (09:03→19:58)
[2021-07-19] MEDS: ROPINIRole 1mg tablet OGT SCH ×2 (09:03→19:58)
[2021-07-19] MEDS: allopurinol 100mg tablet OGT SCH ×2 (09:03→19:58)
[2021-07-19] MEDS: spironolactone 50 MG tablet OGT SCH ×3 (09:03→21:57)
[2021-07-19] MEDS: insulin glargine (Lantus) pen - multi-dose SQ SCH ×2 (09:07→20:48)
[2021-07-19] MEDS: DEXMEDETOMIDINE 400mcg/4ml inj 400 MCG in normal saline 100ml IV soln 96 ML IV SCH (09:20)
--- NOTE | 2021-07-19 10:38 | NUR ---
TF consult: Per consult tube feeding to advance from trickles. Noted pt documented to have a 300 mL gastric residual prior to initiation of trickle TF at 25 mL/hr starting at 19:00 on 07/18, though GRV at 0 mL this morning. Pt documented with a large BM 07/18 with a moderate BM today. Recommend continuing TPN until tolerance to TF is ensured given pt previously not tolerating TF. Pt s/p KUB 07/18 which showed two NG tubes with the tips in the distal gastric body region and no dilated loops of bowel identified. Will continue to follow closely. Recommendations: 1) TPN per MD via PICC using 2:1 Clinimix non-E 04/10 at 79 ml/hr goal. In total to provide; 1896ml volume, 95g AA, 379 g DEX (3.99 mg/kg/min dext load), and 1669 total kcal 2) IF TPN using 2:1 Clinimix non-E 04/05 recommend 100ml/hr goal rate. To provide: 2400ml volume, 120g AA, 360g DEX (2.73mg/kg/min), and 1704 total kcals. Okay to initiate at goal rate 100ml/hr as new dex loading less than prior TPN at goal rate. 3) Monitor serum TG. IF to restart intralipids once serum TG improves, separate 50 mL 20% intralipids to run at 4.17 mL/hr for 12 hours each day. Increase to 100 mL 20% intralipids at 8.33 mL/hr for 12 hours each day as appropriate 4) Continuous TF using Vital High Protein with goal rate of 75 mL/hr to provide 1800 mL total volume/day, 1800 kcal, 158 g protein, and 1505 mL water 6) Wean TPN as tube feed advances if pt tolerates tube feeding 7) TG/PALB q /; daily wts 8) Routine bowel care and prokinetic agent Addendum: 07/19/21 at [address] Amended: Links added.
[2021-07-19] MEDS ORDERED: Neutra Phos packet OGT PRN (13:28)
[2021-07-19] MEDS: [UNRECOGNIZED DRUG - REMARK] IV SCH ×4 (17:03)
--- NOTE | 2021-07-19 18:10 | NUR ---
Patient in room ICU 2044. I have received report from Eliceo CALLEJAS and had the opportunity to ask questions and assume patient care.
[2021-07-19] MEDS: polyethylene glycol 3350 17gm powd pack OGT SCH (21:57)
[2021-07-20] VITALS (23 sets, daily range): BP systolic 110–135; BP diastolic 46–63
[2021-07-20] MEDS: DEXMEDETOMIDINE 400mcg/4ml inj 400 MCG in normal saline 100ml IV soln 96 ML IV SCH ×2 (01:10→16:20)
[2021-07-20 01:46] LABS: ABG BASE EXCESS -9.7 mmol/L (-2.0-2.0); ABG HCO3 18.9 mmol/L (22.0-26.0); ABG OXYGEN SATURATION 87.8 % (94-97); ABG PCO2 (T) 60.2 mmHg (32.0-45.0); ABG PO2 (T) 66.1 mmHg (75.0-100.0); ALLEN'S TEST POSITIVE; FMetHb 0.5 % (0.0-1.5); FO2Hb 86.5 % (94-97); PATIENT TEMPERATURE 38.4; PEEP 11 cm H2O; RESPIRATORY RATE 14 b/min; TOTAL HEMOGLOBIN 8.3 G/dl (12.0-16.0)
[2021-07-20] MEDS: metoclopramide 5 mg/ml inj IV SCH ×4 (02:39→22:05)
[2021-07-20] MEDS: insulin regular, human U-100 3ml vial - multi-dose SQ SCH ×3 (02:42→15:50)
--- NOTE | 2021-07-20 02:45 | NUR ---
Called Dr. Bautista re: critical ABG pH 7.123, pCO2 60.2, pO2 60.0. RT increased PIP from 14 to 18. Pt RR 30-35. wants a repeat ABG in a few hours with the new vent settings.
[2021-07-20] MEDS: mineral oil/petrolatum ophthal oint EACHEYE SCH ×4 (02:52→22:05)
[2021-07-20] MEDS: ipratropium/albuterol 3ml nebule NEB SCH ×6 (02:52→23:34)
[2021-07-20 03:04] LABS: BASOPHILS % (AUTO) 0.2 % (0-1); EOSINOPHILS % (AUTO) 0.1 % (0-6); HEMATOCRIT 24.5 % (35.0-45.0); HEMOGLOBIN 7.6 g/dl (12.0-16.0); LYMPHOCYTES # (AUTO) 0.7 X10'3 (1.1-4.8); LYMPHOCYTES % (AUTO) 7.1 % (21-51); MEAN CORPUSCULAR HEMOGLOBIN 31.4 PG (27.0-31.0); MEAN CORPUSCULAR HGB CONC 30.9 g/dL (33.0-36.5); MEAN CORPUSCULAR VOLUME 101.4 FL (78-98); MEAN PLATELET VOLUME 8.3 FL (7.4-10.4); MONOCYTES # (AUTO) 0.2 X10'3 (0-0.9); MONOCYTES % (AUTO) 2.2 % (2-12); NEUTROPHILS % (AUTO) 90.4 % (42-75); PLATELET COUNT 89 X10'3 (140-440); RED BLOOD COUNT 2.41 X10'6 (4.20-5.60); RED CELL DISTRIBUTION WIDTH 19.6 % (11.5-14.5)
[2021-07-20 03:13] LABS: D-DIMER 3.51 MG/L FEU (0-0.50)
[2021-07-20 03:40] LABS: ALANINE AMINOTRANSFERASE 166 U/L (12-78); ALBUMIN 2.2 G/DL (3.4-5.0); ALBUMIN/GLOBULIN RATIO 0.7 (1.1-1.5); ALKALINE PHOSPHATASE 207 IU/L (46-116); ANION GAP 10 (8-16); ASPARTATE AMINO TRANSFERASE 50 U/L (10-37); BILIRUBIN,TOTAL 0.4 MG/DL (0.1-1.0); BLOOD UREA NITROGEN 94 MG/DL (7-18); BUN/CREATININE RATIO 71.2 (6.6-38.0); C-REACTIVE PROTEIN 1.83 MG/DL (0.0-0.5); CALCIUM 8.7 MG/DL (8.5-10.1); CHLORIDE 117 MMOL/L (99-107); CREATININE 1.32 MG/DL (0.40-0.90); GLUCOSE 238 MG/DL (70-104); MAGNESIUM 2.5 MG/DL (1.5-2.4); POTASSIUM 4.1 MMOL/L (3.5-5.1); SODIUM 147 MMOL/L (135-145); TOTAL CARBON DIOXIDE 20.4 MMOL/L (24-32); TOTAL PROTEIN 5.4 G/DL (6.4-8.2); eGFR 38 ML/MIN
--- NOTE | 2021-07-20 04:13 | NUR ---
Pt residuals were 450 mL. Per GRV flowsheet, returned 300 mL and will recheck in 1 hr.
[2021-07-20] MEDS: [UNRECOGNIZED DRUG - REMARK] IV SCH ×8 (04:21→16:36)
[2021-07-20 04:37] LABS: ANISOCYTOSIS 2+; NUCLEATED RED BLOOD CELLS 4 /100WBC (0-0); PLATELET ESTIMATE DECREASED; TOTAL CELLS COUNTED 100
[2021-07-20 04:38] LABS: POLYCHROMASIA FEW
--- NOTE | 2021-07-20 06:20 | NUR ---
Patient in room ICU 2044. I have received report from JÚNIOR Dolan and had the opportunity to ask questions and assume patient care.
--- NOTE | 2021-07-20 06:22 | NUR ---
Problems reprioritized. Patient report given, questions answered & plan of care reviewed with Lillian CALLEJAS.
[2021-07-20] MEDS: MESSAGE TO NURSING IV SCH (08:00)
[2021-07-20] MEDS: enoxaparin 40mg/0.4ml syringe SUBCUT SCH (08:00)
[2021-07-20] MEDS: K and/or MAG REPLACEMENT MC SCH ×2 (08:00→20:00)
[2021-07-20 08:33] LABS: ABG BASE EXCESS -9.6 mmol/L (-2.0-2.0); ABG HCO3 18.5 mmol/L (22.0-26.0); ABG OXYGEN SATURATION 88.8 % (94-97); ABG PCO2 (T) 56.3 mmHg (32.0-45.0); ABG PO2 (T) 66.4 mmHg (75.0-100.0); ALLEN'S TEST POSITIVE; FCOHb 1.1 % (0.0-3.9); FMetHb 0.4 % (0.0-1.5); FO2Hb 87.5 % (94-97); PATIENT TEMPERATURE 38.4; PEEP 11 cm H2O; RESPIRATORY RATE 24 b/min; TIDAL VOLUME 580 mL; TOTAL HEMOGLOBIN 7.8 G/dl (12.0-16.0)
[2021-07-20] MEDS: levoTHYROXINE 88mcg tablet OGT SCH (08:56)
[2021-07-20] MEDS: aspirin 81mg tab.chew OGT SCH (08:56)
[2021-07-20] MEDS: dexamethasone inj 5 MG in normal saline 50ml IV soln 50 ML IV SCH (08:56)
[2021-07-20] MEDS: pantoprazole 40 MG vial IV SCH ×2 (08:56→22:05)
[2021-07-20] MEDS: allopurinol 100mg tablet OGT SCH ×2 (08:57→22:05)
[2021-07-20] MEDS: ROPINIRole 1mg tablet OGT SCH ×2 (08:57→22:04)
[2021-07-20] MEDS: lactobacillus rhamnosus 10,000 MMU CELLS/CAPSULE OGT SCH ×2 (08:57→22:05)
[2021-07-20] MEDS: spironolactone 50 MG tablet OGT SCH ×3 (08:57→22:05)
[2021-07-20] MEDS: lactulose 20gm/30ml cup OGT SCH ×3 (08:58→22:04)
[2021-07-20] MEDS: docusate sodium 100mg/10ml UD cup OGT SCH ×2 (08:58→22:07)
[2021-07-20] MEDS: meropenem inj 1 GM in normal saline 100ml IV soln 100 ML IV SCH ×2 (10:45→22:03)
[2021-07-20] MEDS: insulin glargine (Lantus) pen - multi-dose SQ SCH ×2 (10:48→22:02)
[2021-07-20 12:12] LABS: ABG BASE EXCESS -10.2 mmol/L (-2.0-2.0); ABG HCO3 17.7 mmol/L (22.0-26.0); ABG OXYGEN SATURATION 86.8 % (94-97); ABG PCO2 (T) 51.3 mmHg (32.0-45.0); ABG PO2 (T) 58.8 mmHg (75.0-100.0); ALLEN'S TEST POSITIVE; FCOHb 1.4 % (0.0-3.9); FO2Hb 85.6 % (94-97); PEEP 11 cm H2O; RESPIRATORY RATE 22 b/min; TIDAL VOLUME 475 mL; TOTAL HEMOGLOBIN 8.4 G/dl (12.0-16.0)
--- NOTE | 2021-07-20 15:30 | NUR ---
GRV of 650 at 1330. Per protocol, returned ml of aspirate and held for 2 hours. At 1530 the GVR was 320. Will hold until 1730 per protocol.
--- NOTE | 2021-07-20 17:30 | NUR ---
Tube feed restarted per protocol. GRV approximately 10mls.
--- NOTE | 2021-07-20 18:13 | NUR ---
Problems reprioritized. Patient report given, questions answered & plan of care reviewed with JOSÉ MANUEL RN.
--- NOTE | 2021-07-20 20:00 | NUR ---
Spoke to Dr. Bautista regarding pt continuing to have elevated tube feeding residual, new orders received to hold tube feeding at this time reassess tomorrow, only give lantus this HS, if at 0200 glucose is elevated then cover nutritional coverage from the TPN.
[2021-07-20] MEDS: dexamethasone inj 4 MG in normal saline 50ml IV soln 50 ML IV SCH (22:04)
[2021-07-20] MEDS: polyethylene glycol 3350 17gm powd pack OGT SCH (22:04)
[2021-07-20] MEDS: acetaminophen 325mg/10.15ml oral unit dose solution OGT PRN (22:07)
[2021-07-21] VITALS (27 sets, daily range): BP systolic 106–134; BP diastolic 42–61
[2021-07-21] MEDS: metoclopramide 5 mg/ml inj IV SCH ×4 (02:15→21:07)
[2021-07-21] MEDS: insulin regular, human U-100 3ml vial - multi-dose SQ SCH ×4 (02:17→21:04)
[2021-07-21] MEDS: mineral oil/petrolatum ophthal oint EACHEYE SCH ×4 (02:19→21:06)
[2021-07-21] MEDS: ipratropium/albuterol 3ml nebule NEB SCH ×6 (02:33→23:09)
[2021-07-21 02:44] LABS: ABG BASE EXCESS -11.7 mmol/L (-2.0-2.0); ABG PCO2 (T) 46.7 mmHg (32.0-45.0); ABG PO2 (T) 79.6 mmHg (75.0-100.0); ALLEN'S TEST POSITIVE; FCOHb 0.8 % (0.0-3.9); FMetHb 0.5 % (0.0-1.5); FO2Hb 91.8 % (94-97); PATIENT TEMPERATURE 37.9; PEEP 11 cm H2O; RESPIRATORY RATE 24 b/min; TIDAL VOLUME 475 mL; TOTAL HEMOGLOBIN 7.8 G/dl (12.0-16.0)
[2021-07-21 02:56] LABS: BASOPHILS % (AUTO) 0.3 % (0-1); EOSINOPHILS % (AUTO) 0 % (0-6); HEMOGLOBIN 7.1 g/dl (12.0-16.0); LYMPHOCYTES # (AUTO) 0.8 X10'3 (1.1-4.8); LYMPHOCYTES % (AUTO) 7.5 % (21-51); MEAN CORPUSCULAR HEMOGLOBIN 31.4 PG (27.0-31.0); MEAN CORPUSCULAR HGB CONC 32.2 g/dL (33.0-36.5); MEAN CORPUSCULAR VOLUME 97.4 FL (78-98); MONOCYTES # (AUTO) 0.3 X10'3 (0-0.9); MONOCYTES % (AUTO) 2.5 % (2-12); NEUTROPHILS # (AUTO) 9.1 X10'3 (1.8-7.7); NEUTROPHILS % (AUTO) 89.7 % (42-75); PLATELET COUNT 83 X10'3 (140-440); RED BLOOD COUNT 2.25 X10'6 (4.20-5.60); RED CELL DISTRIBUTION WIDTH 18.7 % (11.5-14.5); WHITE BLOOD COUNT 10.2 X10'3 (4.5-11.0)
[2021-07-21 03:08] LABS: D-DIMER 3.91 MG/L FEU (0-0.50)
[2021-07-21 03:20] LABS: HEMATOCRIT 21.9 % (35.0-45.0)
[2021-07-21 03:22] LABS: ALANINE AMINOTRANSFERASE 149 U/L (12-78); ALBUMIN/GLOBULIN RATIO 0.6 (1.1-1.5); ALKALINE PHOSPHATASE 202 IU/L (46-116); ANION GAP 13 (8-16); ASPARTATE AMINO TRANSFERASE 51 U/L (10-37); BILIRUBIN,TOTAL 0.4 MG/DL (0.1-1.0); BLOOD UREA NITROGEN 126 MG/DL (7-18); CALCIUM 8.6 MG/DL (8.5-10.1); CHLORIDE 114 MMOL/L (99-107); GLUCOSE 167 MG/DL (70-104); MAGNESIUM 2.5 MG/DL (1.5-2.4); POTASSIUM 3.8 MMOL/L (3.5-5.1); PREALBUMIN 28.7 MG/DL (19-36); SODIUM 146 MMOL/L (135-145); TOTAL CARBON DIOXIDE 19.3 MMOL/L (24-32); TOTAL PROTEIN 5.3 G/DL (6.4-8.2); eGFR 33 ML/MIN
[2021-07-21 04:37] LABS: NUCLEATED RED BLOOD CELLS 3 /100WBC (0-0); TOTAL CELLS COUNTED 100
[2021-07-21 04:38] LABS: ANISOCYTOSIS 2+; PLATELET ESTIMATE DECREASED; POLYCHROMASIA 1+
[2021-07-21] MEDS: [UNRECOGNIZED DRUG - REMARK] IV SCH ×8 (04:45→16:55)
--- NOTE | 2021-07-21 05:38 | NUR ---
Rounded with Dr. Maurice reviewed pts Labs and ABG no new orders at this time.
--- NOTE | 2021-07-21 06:00 | NUR ---
Patient in room ICU 2044. I have received report from Nam CALLEJAS and had the opportunity to ask questions and assume patient care.
[2021-07-21] MEDS: dexamethasone inj 4 MG in normal saline 50ml IV soln 50 ML IV SCH ×2 (07:28→21:11)
[2021-07-21] MEDS: DEXMEDETOMIDINE 400mcg/4ml inj 400 MCG in normal saline 100ml IV soln 96 ML IV SCH (07:30)
[2021-07-21] MEDS: lactulose 20gm/30ml cup OGT SCH ×3 (07:32→21:07)
[2021-07-21] MEDS: spironolactone 50 MG tablet OGT SCH ×3 (07:32→21:07)
[2021-07-21] MEDS: pantoprazole 40 MG vial IV SCH ×2 (07:32→21:07)
[2021-07-21] MEDS: lactobacillus rhamnosus 10,000 MMU CELLS/CAPSULE OGT SCH ×2 (07:32→21:11)
[2021-07-21] MEDS: docusate sodium 100mg/10ml UD cup OGT SCH ×2 (07:32→21:07)
[2021-07-21] MEDS: levoTHYROXINE 88mcg tablet OGT SCH (07:33)
[2021-07-21] MEDS: ROPINIRole 1mg tablet OGT SCH ×2 (07:33→21:06)
[2021-07-21] MEDS: allopurinol 100mg tablet OGT SCH ×2 (07:33→21:06)
[2021-07-21] MEDS: aspirin 81mg tab.chew OGT SCH (07:33)
[2021-07-21] MEDS: meropenem inj 1 GM in normal saline 100ml IV soln 100 ML IV SCH (07:33)
[2021-07-21] MEDS: MESSAGE TO NURSING IV SCH (08:00)
[2021-07-21] MEDS: K and/or MAG REPLACEMENT MC SCH ×2 (08:00→20:00)
[2021-07-21] MEDS: fondaparinux 2.5 MG/0.5 ML syringe SUBCUT SCH (08:22)
[2021-07-21] MEDS: insulin glargine (Lantus) pen - multi-dose SQ SCH ×2 (08:47→21:05)
[2021-07-21] MEDS ORDERED: ringers solution, lacted 1,000 ML IV ONE (08:50)
--- NOTE | 2021-07-21 10:00 | NUR ---
Spoke with son Philippe over the phone and gave update on pts condition. Dr. Eddy also spoke with family and gave update, discussed blood transfusion risks/benefits.
[2021-07-21] MEDS: fluconazole-Diflucan 200mg/NS 100 ML IV SCH (11:28)
[2021-07-21 13:31] LABS: TRIGLYCERIDES 292 MG/DL (20-135)
--- NOTE | 2021-07-21 14:02 | NUR ---
F/u 07/21: Pt TF advanced to 75ml/hr goal however held following GRV 675ml yesterday 07/20 afternoon per EMR. Per loan officer corpak confirmed in duodenum and is agreeable to hold GRV checks w/ post-pyloric feeds. Pt continues to receive TPN at goal and tolerating. TF to resume at 25ml/hr and IF pt remains tolerating EN then can wean PN as indicated per loan officer at rounds. Noted +4kg wt gain one day w/ -10.9L fluid balance this admit; likely error w/ prior BMI 34 most accurate. BM 07/18 large following prior at least 6 days constipation now w/ 445ml stool output yesterday per EMR. Pt not on opiates since 07/18 and continues to receive multiple routine bowel care medications daily. Will continue to monitor for EN/PN tolerance and adjustment needs. Recommendations: 1) TPN per MD via PICC using 2:1 Clinimix non-E 04/10 at 79 ml/hr goal. In total to provide; 1896ml volume, 95g AA, 379 g DEX (3.99 mg/kg/min dext load), and 1669 total kcal 2) IF TPN using 2:1 Clinimix non-E 04/05 recommend 100ml/hr goal rate. To provide: 2400ml volume, 120g AA, 360g DEX (2.73mg/kg/min), and 1704 total kcals. Okay to initiate at goal rate 100ml/hr as new dex loading less than prior TPN at goal rate. 3) Monitor serum TG. IF to restart intralipids once serum TG improves, separate 50 mL 20% intralipids to run at 4.17 mL/hr for 12 hours each day. Increase to 100 mL 20% intralipids at 8.33 mL/hr for 12 hours each day as appropriate 4) Continuous TF using Vital High Protein with goal rate of 75 mL/hr to provide 1800 mL total volume/day, 1800 kcal, 158 g protein, and 1505 mL water 5) Additional 125 mL water flush Q4H; monitor serum Na, 146 this AM 6) hold GRV checks given post-pyloric feeding into duodenum 7) Wean TPN as tube feed advances if pt tolerates tube feeding 8) TG/PALB q /; daily wts 9) Routine bowel care and prokinetic agent per MD Addendum: 07/21/21 at [address] Amended: Links added.
--- NOTE | 2021-07-21 16:30 | NUR ---
Pt's HR went down to 48, then resolved to 60. Informed Dr. Deol. RAMIREZ ordered 1g calcium gluconate and 2g of Mg.
--- NOTE | 2021-07-21 18:42 | NUR ---
Problems reprioritized. Patient report given, questions answered & plan of care reviewed with Zach CALLEJAS.
[2021-07-21] MEDS: polyethylene glycol 3350 17gm powd pack OGT SCH (21:07)
[2021-07-21] MEDS: acetaminophen 325mg/10.15ml oral unit dose solution OGT PRN (22:54)
[2021-07-22] VITALS (24 sets, daily range): BP systolic 125–159; BP diastolic 52–77
[2021-07-22] MEDS: ipratropium/albuterol 3ml nebule NEB SCH ×6 (02:54→22:53)
[2021-07-22 03:05] LABS: BASOPHILS % (AUTO) 0.2 % (0-1); EOSINOPHILS % (AUTO) 0 % (0-6); HEMATOCRIT 25.8 % (35.0-45.0); LYMPHOCYTES # (AUTO) 0.9 X10'3 (1.1-4.8); LYMPHOCYTES % (AUTO) 7.4 % (21-51); MEAN CORPUSCULAR HEMOGLOBIN 31.1 PG (27.0-31.0); MEAN CORPUSCULAR HGB CONC 31.2 g/dL (33.0-36.5); MEAN CORPUSCULAR VOLUME 99.7 FL (78-98); MEAN PLATELET VOLUME 8.5 FL (7.4-10.4); MONOCYTES # (AUTO) 0.3 X10'3 (0-0.9); MONOCYTES % (AUTO) 2.7 % (2-12); NEUTROPHILS # (AUTO) 11.4 X10'3 (1.8-7.7); NEUTROPHILS % (AUTO) 89.7 % (42-75); PLATELET COUNT 78 X10'3 (140-440); RED BLOOD COUNT 2.58 X10'6 (4.20-5.60); RED CELL DISTRIBUTION WIDTH 18.5 % (11.5-14.5); WHITE BLOOD COUNT 12.7 X10'3 (4.5-11.0)
[2021-07-22 03:12] LABS: ABG HCO3 15.9 mmol/L (22.0-26.0); ABG PCO2 (T) 45.8 mmHg (32.0-45.0); ABG PO2 (T) 66.6 mmHg (75.0-100.0); ALLEN'S TEST POSITIVE; FCOHb 1.2 % (0.0-3.9); FMetHb 0.4 % (0.0-1.5); FO2Hb 89.5 % (94-97); PATIENT TEMPERATURE 37.4; PEEP 11 cm H2O; RESPIRATORY RATE 22 b/min; TIDAL VOLUME 500 mL; TOTAL HEMOGLOBIN 8.4 G/dl (12.0-16.0)
[2021-07-22 03:24] LABS: ALANINE AMINOTRANSFERASE 171 U/L (12-78); ALBUMIN 2.2 G/DL (3.4-5.0); ALBUMIN/GLOBULIN RATIO 0.6 (1.1-1.5); ALKALINE PHOSPHATASE 220 IU/L (46-116); ANION GAP 14 (8-16); ASPARTATE AMINO TRANSFERASE 76 U/L (10-37); BILIRUBIN,TOTAL 0.5 MG/DL (0.1-1.0); BLOOD UREA NITROGEN 138 MG/DL (7-18); BUN/CREATININE RATIO 90.8 (6.6-38.0); CHLORIDE 112 MMOL/L (99-107); CREATININE 1.52 MG/DL (0.40-0.90); GLUCOSE 114 MG/DL (70-104); MAGNESIUM 2.5 MG/DL (1.5-2.4); POTASSIUM 4.6 MMOL/L (3.5-5.1); SODIUM 144 MMOL/L (135-145); TOTAL CARBON DIOXIDE 17.8 MMOL/L (24-32); TOTAL PROTEIN 5.6 G/DL (6.4-8.2); eGFR 33 ML/MIN
[2021-07-22 03:28] LABS: D-DIMER 3.99 MG/L FEU (0-0.50)
[2021-07-22] MEDS: mineral oil/petrolatum ophthal oint EACHEYE SCH ×4 (04:56→20:20)
[2021-07-22] MEDS: metoclopramide 5 mg/ml inj IV SCH ×3 (04:56→20:21)
[2021-07-22] MEDS: insulin regular, human U-100 3ml vial - multi-dose SQ SCH ×4 (05:05→20:46)
--- NOTE | 2021-07-22 06:40 | NUR ---
Patient in room ICU 2044. I have received report from Zach CALLEJAS and had the opportunity to ask questions and assume patient care.
[2021-07-22] MEDS: MESSAGE TO NURSING IV SCH (07:00)
[2021-07-22] MEDS: dexamethasone inj 4 MG in normal saline 50ml IV soln 50 ML IV SCH (07:34)
[2021-07-22] MEDS: docusate sodium 100mg/10ml UD cup OGT SCH (07:35)
[2021-07-22] MEDS: lactulose 20gm/30ml cup OGT SCH (07:35)
[2021-07-22] MEDS: pantoprazole 40 MG vial IV SCH ×2 (07:35→20:20)
[2021-07-22] MEDS: ROPINIRole 1mg tablet OGT SCH ×2 (07:36→20:21)
[2021-07-22] MEDS: spironolactone 50 MG tablet OGT SCH ×3 (07:36→20:22)
[2021-07-22] MEDS: lactobacillus rhamnosus 10,000 MMU CELLS/CAPSULE OGT SCH ×2 (07:36→20:21)
[2021-07-22] MEDS: aspirin 81mg tab.chew OGT SCH (07:36)
[2021-07-22] MEDS: allopurinol 100mg tablet OGT SCH ×2 (07:37→20:21)
[2021-07-22] MEDS: fondaparinux 2.5 MG/0.5 ML syringe SUBCUT SCH (07:37)
[2021-07-22] MEDS: levoTHYROXINE 88mcg tablet OGT SCH (07:37)
[2021-07-22] MEDS: K and/or MAG REPLACEMENT MC SCH ×2 (08:00→20:00)
[2021-07-22] MEDS: cefepime 2g/NS 100ml ADVANTAGE 100 ML IV SCH (08:06)
[2021-07-22] MEDS: insulin glargine (Lantus) pen - multi-dose SQ SCH ×2 (08:14→20:48)
[2021-07-22] MEDS: sodium bicarbonate 650mg tablet PO SCH ×3 (09:00→20:21)
[2021-07-22] MEDS: fluconazole-Diflucan 200mg/NS 100 ML IV SCH (09:00)
[2021-07-22] MEDS: [UNRECOGNIZED DRUG - REMARK] IV SCH ×4 (09:29)
--- NOTE | 2021-07-22 11:00 | NUR ---
F/u 07/22: Pt TPN currently weaning at 54ml/hr w/ TF increased to 45ml/hr and GRV WNL so far today per RN. Noted pt corpak in distal stomach and not post-pyloric per imaging; RN reports continuing to check GRV's. Will monitor for EN tolerance and PN weaning as medically indicated. Recommendations: 1) TPN per MD via PICC using 2:1 Clinimix non-E 04/10 at 79 ml/hr goal. In total to provide; 1896ml volume, 95g AA, 379 g DEX (3.99 mg/kg/min dext load), and 1669 total kcal 2) IF TPN using 2:1 Clinimix non-E 04/05 recommend 100ml/hr goal rate. To provide: 2400ml volume, 120g AA, 360g DEX (2.73mg/kg/min), and 1704 total kcals. Okay to initiate at goal rate 100ml/hr as new dex loading less than prior TPN at goal rate. 3) Monitor serum TG. IF to restart intralipids once serum TG improves, separate 50 mL 20% intralipids to run at 4.17 mL/hr for 12 hours each day. Increase to 100 mL 20% intralipids at 8.33 mL/hr for 12 hours each day as appropriate 4) Continuous TF using Vital High Protein with goal rate of 75 mL/hr to provide 1800 mL total volume/day, 1800 kcal, 158 g protein, and 1505 mL water 5) Additional 125 mL water flush Q4H; monitor serum Na, 146 this AM 6) Wean TPN as tube feed advances if pt tolerates tube feeding at goal rate 7) TG/PALB q /; daily wts 8) Routine bowel care and prokinetic agent per MD Addendum: 07/22/21 at [address] Amended: Links added.
--- NOTE | 2021-07-22 18:28 | NUR ---
Problems reprioritized. Patient report given, questions answered & plan of care reviewed with Zach CALLEJAS.
[2021-07-22] MEDS ORDERED: ZINC/COPPER/MANGANESE/SELENIUM 0.5 ML, chromic chloride inj. 5 MCG in AMINO ACIDS 5 %/D... IV SCH (21:00)
[2021-07-23] VITALS (19 sets, daily range): BP systolic 104–149; BP diastolic 39–71
[2021-07-23] MEDS: ipratropium/albuterol 3ml nebule NEB SCH ×4 (02:47→15:14)
[2021-07-23] MEDS: insulin regular, human U-100 3ml vial - multi-dose SQ SCH ×2 (02:51→07:36)
[2021-07-23] MEDS: mineral oil/petrolatum ophthal oint EACHEYE SCH ×2 (02:53→07:27)
[2021-07-23 03:08] LABS: ABG BASE EXCESS -10.5 mmol/L (-2.0-2.0); ABG HCO3 16.6 mmol/L (22.0-26.0); ABG OXYGEN SATURATION 95.4 % (94-97); ABG PCO2 (T) 41.2 mmHg (32.0-45.0); ABG PO2 (T) 83.7 mmHg (75.0-100.0); ALLEN'S TEST Yes; FCOHb 0.8 % (0.0-3.9); FMetHb 0.3 % (0.0-1.5); FO2Hb 94.4 % (94-97); PATIENT TEMPERATURE 36.6; PEEP 11 cm H2O; RESPIRATORY RATE 22 b/min; TIDAL VOLUME 500 mL; TOTAL HEMOGLOBIN 8.6 G/dl (12.0-16.0)
[2021-07-23 04:09] LABS: BASOPHILS % (AUTO) 0.2 % (0-1); EOSINOPHILS % (AUTO) 0 % (0-6); HEMATOCRIT 26.2 % (35.0-45.0); HEMOGLOBIN 8.2 g/dl (12.0-16.0); LYMPHOCYTES % (AUTO) 7.2 % (21-51); MEAN CORPUSCULAR HEMOGLOBIN 31.2 PG (27.0-31.0); MEAN CORPUSCULAR HGB CONC 31.5 g/dL (33.0-36.5); MEAN CORPUSCULAR VOLUME 98.8 FL (78-98); MEAN PLATELET VOLUME 9.1 FL (7.4-10.4); MONOCYTES # (AUTO) 0.4 X10'3 (0-0.9); MONOCYTES % (AUTO) 2.7 % (2-12); NEUTROPHILS # (AUTO) 12.5 X10'3 (1.8-7.7); NEUTROPHILS % (AUTO) 89.9 % (42-75); PLATELET COUNT 76 X10'3 (140-440); RED BLOOD COUNT 2.65 X10'6 (4.20-5.60); RED CELL DISTRIBUTION WIDTH 19.2 % (11.5-14.5); WHITE BLOOD COUNT 13.9 X10'3 (4.5-11.0)
[2021-07-23 04:20] LABS: D-DIMER 2.49 MG/L FEU (0-0.50)
[2021-07-23 04:24] LABS: ALANINE AMINOTRANSFERASE 162 U/L (12-78); ALBUMIN 2.2 G/DL (3.4-5.0); ALBUMIN/GLOBULIN RATIO 0.6 (1.1-1.5); ALKALINE PHOSPHATASE 220 IU/L (46-116); ANION GAP 14 (8-16); ASPARTATE AMINO TRANSFERASE 58 U/L (10-37); BILIRUBIN,TOTAL 0.5 MG/DL (0.1-1.0); BLOOD UREA NITROGEN 141 MG/DL (7-18); BUN/CREATININE RATIO 102.2 (6.6-38.0); C-REACTIVE PROTEIN 0.52 MG/DL (0.0-0.5); CALCIUM 9.2 MG/DL (8.5-10.1); CHLORIDE 117 MMOL/L (99-107); CREATININE 1.38 MG/DL (0.40-0.90); GLUCOSE 118 MG/DL (70-104); MAGNESIUM 2.3 MG/DL (1.5-2.4); POTASSIUM 4.9 MMOL/L (3.5-5.1); SODIUM 150 MMOL/L (135-145); TOTAL CARBON DIOXIDE 18.8 MMOL/L (24-32); TOTAL PROTEIN 5.7 G/DL (6.4-8.2); eGFR 37 ML/MIN
[2021-07-23 04:28] LABS: TOTAL CELLS COUNTED 100
[2021-07-23 04:29] LABS: BANDS% (MANUAL) 5 % (0-10); LYMPHOCYTES % (MANUAL) 3 % (21-51); METAMYLEOCYTES% (MANUAL) 2 % (0-0); MONOCYTES % (MANUAL) 2 % (2-12); NEUTROPHILS % (MANUAL) 88 % (42-75); PLATELET ESTIMATE DECREASED
[2021-07-23 04:30] LABS: ANISOCYTOSIS 2+
[2021-07-23] MEDS: allopurinol 100mg tablet OGT SCH (07:27)
[2021-07-23] MEDS: levoTHYROXINE 88mcg tablet OGT SCH (07:27)
[2021-07-23] MEDS: spironolactone 50 MG tablet OGT SCH (07:27)
[2021-07-23] MEDS: fondaparinux 2.5 MG/0.5 ML syringe SUBCUT SCH (07:27)
[2021-07-23] MEDS: metoclopramide 5 mg/ml inj IV SCH (07:27)
[2021-07-23] MEDS: sodium bicarbonate 650mg tablet PO SCH (07:27)
[2021-07-23] MEDS: aspirin 81mg tab.chew OGT SCH (07:27)
[2021-07-23] MEDS: pantoprazole 40 MG vial IV SCH (07:28)
[2021-07-23] MEDS: ROPINIRole 1mg tablet OGT SCH (07:28)
[2021-07-23] MEDS: lactobacillus rhamnosus 10,000 MMU CELLS/CAPSULE OGT SCH (07:28)
[2021-07-23] MEDS: fluconazole-Diflucan 200mg/NS 100 ML IV SCH (07:29)
[2021-07-23] MEDS: cefepime 2g/NS 100ml ADVANTAGE 100 ML IV SCH (07:31)
[2021-07-23] MEDS ORDERED: dexamethasone inj 6 MG in normal saline 50ml IV soln 50 ML IV SCH (08:00)
[2021-07-23] MEDS: MESSAGE TO NURSING IV SCH (08:00)
[2021-07-23] MEDS: insulin glargine (Lantus) pen - multi-dose SQ SCH (08:00)
[2021-07-23] MEDS ORDERED: midazolam 100mg in NS 100ml 100 ML IV PRN ×2 (16:45→17:35)
[2021-07-23] MEDS ORDERED: FENTANYL-0.9 % NACL/PF 100 ML IV PRN ×2 (16:45→17:35)
[2021-07-24] MEDS ORDERED: MVI, adult No.4 with vit. K 10 ML in dextrose 5% water 500ml 500 ML IV SCH ×2 (10:00)
== END 2021-07-23 19:27 | DRG 870 ==
LOC: ER 14:25 → ED HOLD 17:12 → UNDOADMIN 17:12 → CICU 2S 06-27 14:00 → ICU 2S 07-17 17:52
PROVIDERS: ADMIT Family Medicine; ATTEND Internal Medicine Critical Care Medicine
PROC: XW033E5 Introduction of Remdesivir Anti-infective into Peripheral Vein, Percutaneous Approach, New Technology Group 5 (ICD-10-PCS; principal; 2021-06-23)
PROC: 5A09357 Assistance with Respiratory Ventilation, Less than 24 Consecutive Hours, Continuous Positive Airway Pressure (ICD-10-PCS; 2021-06-24)
PROC: 5A1955Z Respiratory Ventilation, Greater than 96 Consecutive Hours (ICD-10-PCS; 2021-06-26)
PROC: 0BH17EZ Insertion of Endotracheal Airway into Trachea, Via Natural or Artificial Opening (ICD-10-PCS; 2021-06-26)
PROC: 02HV33Z Insertion of Infusion Device into Superior Vena Cava, Percutaneous Approach (ICD-10-PCS; 2021-06-27)
PROC: B548ZZA Ultrasonography of Superior Vena Cava, Guidance (ICD-10-PCS; 2021-06-27)
PROC: 30233N1 Transfusion of Nonautologous Red Blood Cells into Peripheral Vein, Percutaneous Approach (ICD-10-PCS; 2021-07-21)
DX: A41.9 Sepsis, unspecified organism (principal); J12.82 Pneumonia due to coronavirus disease 2019; U07.1 COVID-19; J15.5 Pneumonia due to Escherichia coli; J80 Acute respiratory distress syndrome; I13.0 Hypertensive heart and chronic kidney disease with heart failure and stage 1 through stage 4 chronic kidney disease, or unspecified chronic kidney disease; E87.2 Acidosis; N17.9 Acute kidney failure, unspecified; G93.40 Encephalopathy, unspecified; N18.9 Chronic kidney disease, unspecified; K21.9 Gastro-esophageal reflux disease without esophagitis; I50.9 Heart failure, unspecified; E66.01 Morbid (severe) obesity due to excess calories; E03.9 Hypothyroidism, unspecified; F32.9 Major depressive disorder, single episode, unspecified; D64.9 Anemia, unspecified; G89.29 Other chronic pain; D69.6 Thrombocytopenia, unspecified; Z51.5 Encounter for palliative care; E87.6 Hypokalemia; M10.9 Gout, unspecified; K76.0 Fatty (change of) liver, not elsewhere classified; Z66 Do not resuscitate; Z86.73 Personal history of transient ischemic attack (TIA), and cerebral infarction without residual deficits; Z78.1 Physical restraint status; Z87.442 Personal history of urinary calculi; Z88.0 Allergy status to penicillin; Z90.49 Acquired absence of other specified parts of digestive tract; Z68.36 Body mass index [BMI] 36.0-36.9, adult; Z88.8 Allergy status to other drugs, medicaments and biological substances; Z79.899 Other long term (current) drug therapy; Z79.82 Long term (current) use of aspirin
CPT/HCPCS: 36415; 36430; 36573; 36600; 70450; 71045; 74018; 76700; 80053; 80202; 81001; 82803; 82948; 83605; 83615; 83735; 83880; 83935; 84100; 84132; 84133; 84134; 84145; 84300; 84443; 84478; 85007; 85018; 85025; 85379; 85384; 85610; 85730; 86140; 86885; 86900; 86901; 86920; 87040; 87070; 87077; 87088; 87186; 94002; 94003; 94640; 94660; 94760; 94799; 96365; 97110; 97161; 97530; 99291; C9113; G0378; J0692; J0696; J0744; J1100; J1450; J1650; J1652; J1815; J1940; J2060; J2185; J2212; J2250; J2270; J2405; J2704; J2765; J3010; J3370; J3480; J3490; J7030; J7050; J7060; J7120; J8540; P9016; P9047; Q9963